=== PATIENT | male | born 1975 | race Caucasian/White ===

== ENCOUNTER → 2017-10-03 | Outpatient (CLI) | payer OTHER ==
[~2017-10-03] MED LIST: ERGO500011 PO; MELO-84 PO
[2017-10-03 17:50] LABS: ALBUMIN 3.6 gm/dl (3.4-5.0); ALT/SGPT 26 U/L (12-78); BLOOD UREA NITROGEN 20 mg/dl (7-18); CALCIUM 8.7 mg/dl (8.5-10.1); CARBON DIOXIDE 29 mmol/L (21-32); CHOLESTEROL 139 mg/dl (0-200); CREATININE 1.05 mg/dl (0.60-1.40); GLUCOSE 96 mg/dl (70-99); POTASSIUM 3.9 mmol/L (3.5-5.1); SODIUM 139 mmol/L (136-145)
[2017-10-03 17:55] LABS: ALKALINE PHOSPHATASE 68 U/L (45-117); AST/SGOT 10 U/L (15-37); LDL CHOLESTEROL CALCULATED 71 mg/dl; TOTAL PROTEIN 7.8 gm/dl (6.4-8.2)
== END | disposition home or self-care (01) ==
LOC: C.LABBFT 15:36
PROVIDERS: ATTEND Nurse Practitioner
DX: R35.0 Frequency of micturition (principal); Z12.5 Encounter for screening for malignant neoplasm of prostate; Z13.220 Encounter for screening for lipoid disorders

== ENCOUNTER 2023-01-01 13:10 | Inpatient (IN) ==
[2023-01-01] MEDS ORDERED: METOPROLOL TARTRATE 1 MG/ML VIAL IV PRN ×2 (13:25→19:04)
--- NOTE | 2023-01-01 13:29 | Emergency Department Note ---
Impression & Plan New onset atrial flutter, Atrial flutter with rapid ventricular response, Hypertension ED Provider Note INFORMANT: Patient ED PROVIDER(S): Chris Harris DO CHIEF COMPLAINT: Shortness of breath with exertion PLAN: Disposition: Admission Outpatient prescription management: [none] Discussion with: I spoke with the hospitalist, who will see the patient for admission/observation and further evaluation and consultation. MEDICAL DECISION MAKING: This is a 47-year-old male who presents to the ED with a chief complaint of shortness of breath with exertion. The patient states he has felt this way for the last several days. He states that he thought it was related to his asthma. The patient states that he became more short of breath with exertion with routine activities that he previously did not have shortness of breath with. He also reports a cough with some phlegm for the past few days. He was evaluated at a urgent care prior to coming in and was found to be in atrial flutter with a heart rate of 118. EMS took a twelve-lead where he was in atrial flutter with a heart rate of 146. The patient's exam reveals that he is obese. Lungs are clear. Heart was slightly irregular and rapid whenever I evaluated him. Denies any symptoms at this time. He states he cannot feel the rapid heart rate or palpitations. His twelve-lead EKG shows atrial fibrillation at a rate of 116. The patient CBC did not show any concerning anemia or leukocytosis. Chemistry panel showed no electrolyte abnormality or kidney dysfunction. Troponin was reviewed. The patient was told the results. I did speak with the hospitalist about the patient. We started the patient on IV heparin. He was given IV Lopressor while here for heart rate control. Triage Nursing notes reviewed. Vital Signs: reviewed Prior /Outside records reviewed: [none] Differential diagnosis: The differential that was considered includes acute myocardial infarction, acute coronary syndrome, myocarditis, pericarditis, pericardial effusions /tamponade, esophageal perforation, thoracic aortic dissection, pulmonary embolism, pneumonia, pneumothorax, pancreatitis, shingles, acute cholecystitis, perforated abdominal viscus. Diagnostics, as interpreted by me: 12 lead ECG: Atrial fibrillation rate of 116. No ST elevation. No PVCs. Normal QTc. Cardiac Monitoring ordered: Atrial flutter/atrial fibrillation with rates in the 110s to 140s. Medical decision rules: [none] Imaging studies: [none] Procedures: none. Critical care: none. HPI: See MDM above. PAST MEDICAL HISTORY: See Below PAST SURGICAL HISTORY: See Below SOCIAL HISTORY: See Below HOME MEDICATIONS:See Below ALLERGIES: See Below VITALS: See Below PHYSICAL EXAMINATION: See MDM for positive findings otherwise unremarkable. CONSTITUTIONAL/VITAL SIGNS: Reviewed GENERAL:done as appropriate INTEGUMENTARY: done as appropriate HEAD: done as appropriate EYES: done as appropriate RESPIRATORY: done as appropriate CARDIOVASCULAR:done as appropriate GI/ABDOMEN:done as appropriate EXTREMITIES: done as appropriate NEUROLOGICAL: done as appropriate PSYCHIATRIC:done as appropriate MUSCULOSKELETAL:done as appropriate TRIAGE NURSING DOCUMENTATION REVIEWED. Past Med/Surg History Medical History Arthritis Balanitis Bilateral sacroiliitis BPH with obstruction/lower urinary tract symptoms Hip pain, bilateral History of COVID-19 diagnosed 07/29/21 @ [place]--mild symptoms, no symptoms now HTN (hypertension) Moderate persistent asthma without complication inhaler daily and prn Morbid obesity with BMI of 60.0-69.9, adult Obesity Obstructive sleep apnea no cpap Surgical History History of circumcision (~2014) with meatal dilatation -Dr Harvey History of surgery (~09/2020) penile reconstruction @ [facility] History of tonsillectomy History of tooth extraction S/P panniculectomy done at same time penile reconstruction Family History Father Diabetes Kidney stone Myocardial infarction Hypertension Grandfather Cardiac disorder Myocardial infarction Hypertension Grandmother Cancer Family/Other Diabetes Uncle Cancer Sister Morbid obesity Other No family history of adverse response to anesthesia Denies family history of Ovarian cancer Prostate cancer Breast cancer Colorectal cancer Social History (Updated 12/27/21 @ 12:11 by Aman Summers MD) Smoking Status: Never smoker Second Hand Exposure: No; Do You Dip or Chew Tobacco: No; Hx Alcohol Use: No Hx Substance Use: No Preferred Language: Lao Communication Ability: Effective Hearing Ability: Normal Ekg Monitor Tech Required: No Beliefs That Will Affect Care: None marital status: Current Living Situation: Spouse and Family Current Living Situation Comment: lives with and stepkids come every other week current occupational status: employed 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 Feels Safe at Home: Yes Diet: regular caffeine: Yes Dental Care, Regularly: No Physical Activity Frequency: Does not Exercise Seatbelt Use: always Assistive Devices: CPAP Allergies Allergies Allergy/AdvReac Type Severity Reaction Status Date / Time amoxicillin Allergy Mild RASH Verified 12/05/22 10:52 Penicillins Allergy Mild RASH Verified 12/05/22 10:52 Home Meds Previous Rx's Medication Instructions Recorded fluticasone furoate 200 1 ea inhalation HS #28 ea 05/30/22 mcg-vilanterol 25 mcg/dose inhalation powder (Breo Ellipta) amlodipine 10 mg tablet 10 mg PO HS #90 tabs 05/31/22 irbesartan 300 mg tablet 300 mg PO HS #90 tabs 05/31/22 diclofenac sodium 75 mg 75 mg PO BID #60 tabs 11/16/22 tablet,delayed release cyclobenzaprine 10 mg tablet 10 mg PO HS PRN muscle spasm #8 12/05/22 tabs semaglutide (weight loss) 0.25 0.25 mg (0.5 mL) subcut Q7D 28 12/05/22 mg/0.5 mL subcutaneous pen days #2 mL injector (Quanlight) cholecalciferol (vitamin D3) 1,250 1,250 mcg PO DAILY #8 caps 12/06/22 mcg (50,000 unit) capsule albuterol sulfate 90 mcg/actuation See Rx Instructions .Route 12/29/22 aerosol inhaler .COMPLEX #8.5 grams Results & Data (ED) Vital Signs Vital Signs - 24 hr 01/01/23 13:24 01/01/23 13:25 01/01/23 13:25 Temperature 37.0 C Temperature Source Oral Pulse Rate 147 H 89 Pulse Rate from SpO2 Sensor Pulse Rhythm Irregular Pulse Strength Normal Respiratory Rate 16 Respiratory Effort / Characteristics Non-Labored Non-Labored Spontaneous Respiratory Depth Normal Respiratory Pattern Regular Blood Pressure 145/118 H Blood Pressure Mean 127 Blood Pressure Position Sitting Pulse Oximetry 97 Oxygen Delivery Method Room Air Sepsis Recent Fever Within 48 Hours No Sepsis New/Unexplained Change in Mental Status N/A Sepsis Action Taken by Nursing No Action Required 01/01/23 13:25 01/01/23 13:25 01/01/23 13:23 Temperature Temperature Source Pulse Rate Pulse Rate from SpO2 Sensor Pulse Rhythm Pulse Strength Respiratory Rate Respiratory Effort / Characteristics Respiratory Depth Respiratory Pattern Blood Pressure 145/118 H Blood Pressure Mean 135 Blood Pressure Position Pulse Oximetry Oxygen Delivery Method Room Air Room Air Sepsis Recent Fever Within 48 Hours Sepsis New/Unexplained Change in Mental Status Sepsis Action Taken by Nursing 01/01/23 13:24 01/01/23 13:30 01/01/23 13:32 Temperature Temperature Source Pulse Rate 118 H 120 H Pulse Rate from SpO2 Sensor 111 H 81 Pulse Rhythm Pulse Strength Respiratory Rate 21 18 Respiratory Effort / Characteristics Respiratory Depth Respiratory Pattern Blood Pressure 168/86 H Blood Pressure Mean 135 Blood Pressure Position Pulse Oximetry 96 96 Oxygen Delivery Method Sepsis Recent Fever Within 48 Hours Sepsis New/Unexplained Change in Mental Status Sepsis Action Taken by Nursing 01/01/23 13:32 01/01/23 14:00 01/01/23 14:01 Temperature Temperature Source Pulse Rate 109 H 98 H 109 H Pulse Rate from SpO2 Sensor 82 88 76 Pulse Rhythm Pulse Strength Respiratory Rate 14 23 28 H Respiratory Effort / Characteristics Respiratory Depth Respiratory Pattern Blood Pressure Blood Pressure Mean Blood Pressure Position Pulse Oximetry 94 96 96 Oxygen Delivery Method Sepsis Recent Fever Within 48 Hours Sepsis New/Unexplained Change in Mental Status Sepsis Action Taken by Nursing 01/01/23 14:01 01/01/23 14:30 01/01/23 14:47 Temperature Temperature Source Pulse Rate 103 H 84 Pulse Rate from SpO2 Sensor 96 H Pulse Rhythm Pulse Strength Respiratory Rate 20 Respiratory Effort / Characteristics Respiratory Depth Respiratory Pattern Blood Pressure 185/159 H 185/159 H Blood Pressure Mean 171 Blood Pressure Position Pulse Oximetry 98 Oxygen Delivery Method Sepsis Recent Fever Within 48 Hours Sepsis New/Unexplained Change in Mental Status Sepsis Action Taken by Nursing Laboratory Data 01/01/23 14:38 01/01/23 14:38 Lab Results 01/01/23 01/01/23 Range/Units 13:57 14:38 WBC 9.08 (4.8-10.8) K/ul RBC 4.92 (4.70-6.10) M/uL Hgb 13.1 L (14.0-18.0) g/dl Hct 41.4 L (42.0-52.0) % MCV 84.1 (80.0-100.0) fL MCH 26.6 (25.0-34.0) pg MCHC 31.6 L (32.0-36.0) g/dL RDW Std Deviation 46.8 H (36.4-46.3) fL RDW Coeff of Samantha 15.6 H (11.5-14.5) % Plt Count 245 (130-400) K/uL MPV 10.0 (9.4-12.4) fL Immature Gran % (Auto) 0.7 % Neut % (Auto) 75.6 % Lymph % (Auto) 14.2 % [place] % (Auto) 8.4 % Eos % (Auto) 0.7 % Baso % (Auto) 0.4 % Neut # (Auto) 6.87 H (1.40-6.50) K/uL Lymph # (Auto) 1.29 (1.2-3.4) K/uL [place] # (Auto) 0.76 H (0.11-0.59) K/uL Eos # (Auto) 0.06 (0-0.50) K/uL Baso # (Auto) 0.04 (0-0.2) K/uL Immature Gran # (Auto) 0.06 (0.01-0.20) K/uL SARS-CoV-2, RNA, NAAT NEGATIVE (NEGATIVE) Administered Medications Metoprolol Tartrate (Metoprolol Tartrate 1 Mg/Ml Vial) 5 mg IV Q5M PRN PRN Reason: Tachycardia Stop: 01/31/23 13:24 Last Admin: 01/01/23 14:47 Dose: 5 mg Documented By: AP Imaging Data Radiologist's Impression: Chest X-Ray 01/01/23 13:15 XR chest 1V portable CLINICAL HISTORY: Chest pain, nonspecific TECHNIQUE: Single frontal radiograph of the chest was obtained. Comparison: Comparison is made to chest radiograph 10/19/2020 FINDINGS: Exam is limited by underpenetration. Cardiomegaly is noted. The lungs are clear. No evidence of pleural effusion or pneumothorax. IMPRESSION: No acute chest disease. ACT 112: Negative or not required by law. Electronically signed by: Aj Oropeza M.D. 01/01/2023 2:27 PM Discharge Plan Visit Data Chief Complaint: Shortness of Breath/Dyspnea Stated Complaint: SOB, CARDIAC ASSESSMENT ED Provider: Chris Harris Discharge Problem: New onset atrial flutter, Atrial flutter with rapid ventricular response, Hypertension Forms Stand Alone Forms: [employer] Prescriptions Prescriptions: No Action Breo Ellipta 200-25 mcg/dose blister with device 1 ea INHALATION HS Qty: 28 5RF Rx Instructions: with a rinse of mouth afterwards. irbesartan 300 mg tablet 300 mg PO HS Qty: 90 3RF amlodipine 10 mg tablet 10 mg PO HS Qty: 90 3RF diclofenac sodium 75 mg tablet,delayed release (DR/EC) 75 mg PO BID Qty: 60 5RF cholecalciferol (vitamin D3) 1,250 mcg (50,000 unit) capsule 1,250 mcg PO DAILY Qty: 8 0RF albuterol sulfate 90 mcg/actuation HFA aerosol inhaler See Rx Instructions .ROUTE .COMPLEX Qty: 8.5 11RF Dose Instruction: inhale 2 puffs by mouth and INTO THE LUNGS every 6 hours if needed for wheezing OR SHORTNESS OF BREATH Rx Instructions: inhale 2 puffs by mouth and INTO THE LUNGS every 6 hours if needed for wheezing OR SHORTNESS OF BREATH cyclobenzaprine 10 mg tablet 10 mg PO HS PRN (Reason: muscle spasm) Qty: 8 1RF Wegovy 0.25 mg/0.5 mL pen injector 0.25 mg subcut Q7D 28 Days Qty: 2 0RF Rx Instructions: 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 Referrals Referrals: Aman Summers MD [Primary Care Provider] -
--- NOTE | 2023-01-01 14:29 | XRay Report ---
XR chest 1V portable CLINICAL HISTORY: Chest pain, nonspecific TECHNIQUE: Single frontal radiograph of the chest was obtained. Comparison: Comparison is made to chest radiograph 10/19/2020 FINDINGS: Exam is limited by underpenetration. Cardiomegaly is noted. The lungs are clear. No evidence of pleur al effusion or pneumothorax. IMPRESSION: No acute chest disease. ACT 112: Negative or not required by law. Electronically signed by: Aj Oropeza M.D. 01/01/2023 2:27 PM
[2023-01-01 14:51] LABS: Basophils # (auto) 0.04 K/uL (0-0.2); Basophils % (auto) 0.4 %; Eosinophils # (auto) 0.06 K/uL (0-0.50); Eosinophils % (auto) 0.7 %; Hematocrit (blood only) 41.4 % (42.0-52.0); Hemoglobin 13.1 g/dl (14.0-18.0); Immature Granulocytes # (auto) 0.06 K/uL (0.01-0.20); Immature Granulocytes % (auto) 0.7 %; Lymphocytes # (auto) 1.29 K/uL (1.2-3.4); Lymphocytes % (auto) 14.2 %; Mean Corpuscular Hemoglobin 26.6 pg (25.0-34.0); Mean Corpuscular Hgb Conc 31.6 g/dL (32.0-36.0); Mean Corpuscular Volume 84.1 fL (80.0-100.0); Monocytes # (auto) 0.76 K/uL (0.11-0.59); Monocytes % (auto) 8.4 %; Neutrophils # (auto) 6.87 K/uL (1.40-6.50); Neutrophils % (auto) 75.6 %; Platelet Count 245 K/uL (130-400); RDW Coefficient of Variation 15.6 % (11.5-14.5); RDW Standard Deviation 46.8 fL (36.4-46.3); Red Blood Count 4.92 M/uL (4.70-6.10); White Blood Count 9.08 K/ul (4.8-10.8)
[2023-01-01] MEDS ORDERED: Heparin IV Adult Wt-Based Standard WITH Bolus Protocol IV STA (14:53)
[2023-01-01 15:06] LABS: Albumin Globulin Ratio 1.2 (0.9-2); Albumin Level 3.8 gm/dl (3.4-5.0); BUN Creatinine Ratio 24.4 (10-20); Bilirubin,Total 0.5 mg/dl (0.2-1.0); Calcium 8.9 mg/dl (8.6-10.3); Creatinine Clr Calc Pharmacy 144.7 ml/min; Est GFR (African American) 83.2 ml/min; Est GFR (Non-African American) 71.8 ml/min; Globulin 3.1 gm/dl (2.5-4.0); Potassium 4.2 mmol/L (3.5-5.1); Total Protein 6.9 gm/dl (6.0-8.3)
[2023-01-01] MEDS ORDERED: HEPARIN SOD (PORCINE) 1000 UNIT/ML IV ONE ×2 (15:10→15:15)
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
[2023-01-01 15:12] LABS: Troponin I High Sensitivity 36.1 pg/ml (0-20)
[2023-01-01 15:50] LABS: Prothrombin Time 10.8 Seconds (9.0-12.0)
[2023-01-01] MEDS: HEPARIN SODIUM/DEXTROSE 25,000 UNITS/500 ML BAG IV SCH (15:52)
[2023-01-01 16:10] LABS: Partial Thromboplastin Ratio 0.9; Partial Thromboplastin Time 26.2 Seconds (21.0-31.0)
[2023-01-01] MEDS: LOSARTAN POTASSIUM 50 MG TAB PO SCH (18:04)
[2023-01-01] MEDS: PANTOprazole 40 MG TAB PO SCH (18:04)
[2023-01-01] MEDS: amLODIPine BESYLATE 5 MG TAB PO SCH (18:04)
[2023-01-01] MEDS ORDERED: CYCLOBENZAPRINE HCL 10 MG TAB PO PRN (19:04)
[2023-01-01] MEDS ORDERED: POLYETHYLENE (MIRALAX) 17 GM PACK PO PRN (19:04)
[2023-01-01] MEDS ORDERED: hydrALAZINE HCL 20 MG/ML VIAL IV PRN (19:04)
[2023-01-01] MEDS ORDERED: ACETAMINOPHEN 325 MG TAB PO PRN (19:04)
[2023-01-01] MEDS: ALBUTEROL HFA 8 GM INHALER INH SCH (20:37)
[2023-01-01] MEDS ORDERED: MoRPHine SULFATE 2 MG/ML CARP IV STA (20:40)
[2023-01-01] MEDS ORDERED: traMADol HCL 50 MG TABLET PO PRN (21:50)
[2023-01-01] MEDS: FLUTICASONE/VILANTEROL 200/25MCG 14 PUFFS/INHALER INH SCH (22:00)
[2023-01-01] MEDS: METOPROLOL TARTRATE 25 MG TAB PO SCH (22:00)
[2023-01-01 22:12] LABS: Partial Thromboplastin Ratio 1.8
[2023-01-01 22:17] LABS: Partial Thromboplastin Time 50.4 Seconds (21.0-31.0)
[2023-01-02] MEDS ORDERED: DICLOFENAC SOD 1% GEL 100 GM TUBE EXT PRN (00:42)
[2023-01-02] MEDS: ALBUTEROL HFA 8 GM INHALER INH SCH ×4 (00:54→19:06)
[2023-01-02] MEDS: HEPARIN SODIUM/DEXTROSE 25,000 UNITS/500 ML BAG IV SCH ×3 (01:48→21:50)
[2023-01-02] MEDS ORDERED: MoRPHine SULFATE 2 MG/ML CARP IV STA (05:30)
[2023-01-02 07:19] LABS: Basophils # (auto) 0.05 K/uL (0-0.2); Basophils % (auto) 0.6 %; Eosinophils # (auto) 0.14 K/uL (0-0.50); Eosinophils % (auto) 1.7 %; Hematocrit (blood only) 38.7 % (42.0-52.0); Hemoglobin 12.5 g/dl (14.0-18.0); Immature Granulocytes # (auto) 0.05 K/uL (0.01-0.20); Immature Granulocytes % (auto) 0.6 %; Lymphocytes # (auto) 1.36 K/uL (1.2-3.4); Lymphocytes % (auto) 16.3 %; Mean Corpuscular Hemoglobin 26.7 pg (25.0-34.0); Mean Corpuscular Hgb Conc 32.3 g/dL (32.0-36.0); Mean Corpuscular Volume 82.5 fL (80.0-100.0); Mean Platelet Volume 10.2 fL (9.4-12.4); Monocytes # (auto) 0.74 K/uL (0.11-0.59); Monocytes % (auto) 8.9 %; Neutrophils # (auto) 6.01 K/uL (1.40-6.50); Neutrophils % (auto) 71.9 %; Platelet Count 223 K/uL (130-400); RDW Coefficient of Variation 15.5 % (11.5-14.5); RDW Standard Deviation 46.5 fL (36.4-46.3); Red Blood Count 4.69 M/uL (4.70-6.10); White Blood Count 8.35 K/ul (4.8-10.8)
[2023-01-02 07:48] LABS: BUN Creatinine Ratio 18.1 (10-20); Calcium 8.4 mg/dl (8.6-10.3); Creatinine Clr Calc Pharmacy 161.7 ml/min; Est GFR (African American) 96.8 ml/min; Est GFR (Non-African American) 83.5 ml/min; Potassium 3.9 mmol/L (3.5-5.1)
[2023-01-02 08:00] LABS: Partial Thromboplastin Ratio 1.6
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
[2023-01-02] MEDS ORDERED: ERGOCALCIFEROL 50,000 UNITS 1250 MCG CAP PO SCH (09:00)
[2023-01-02 09:03] LABS: Troponin I High Sensitivity 27.2 pg/ml (0-20)
[2023-01-02] MEDS: METOPROLOL TARTRATE 25 MG TAB PO SCH ×2 (09:14→20:00)
[2023-01-02] MEDS: amLODIPine BESYLATE 5 MG TAB PO SCH (09:14)
[2023-01-02] MEDS: PANTOprazole 40 MG TAB PO SCH ×2 (09:14→20:00)
[2023-01-02] MEDS: LOSARTAN POTASSIUM 50 MG TAB PO SCH (09:14)
[2023-01-02] MEDS ORDERED: MoRPHine SULFATE 2 MG/ML CARP IV PRN (11:17)
[2023-01-02] MEDS ORDERED: MoRPHine SULFATE 4 MG/ML 1 ML CARP\\VIAL IV PRN (11:17)
[2023-01-02] MEDS: traMADol HCL 50 MG TABLET PO PRN ×2 (11:35→19:49)
--- NOTE | 2023-01-02 14:15 | Anesthesiology Consultation ---
Date of Service January 02, 2023 Assessment & Plan Chart Review Chart Review: Acceptable Risk for Surgery History Surgery Operation Date: 01/02/23 16:00 Proposed Procedures p Echo Transesophageal - Aman Quintana MD s Cardioversion - Aman Quintana MD Height/Weight Height: 6 ft 1 in Weight: 212.3 kg Allergies Allergy/AdvReac Type Severity Reaction Status Date / Time amoxicillin Allergy Mild RASH Verified 12/05/22 10:52 Penicillins Allergy Mild RASH Verified 12/05/22 10:52 Medications Home Medications Medication Instructions Recorded Confirmed Last Taken fluticasone furoate 200 1 ea inhalation HS #28 ea 05/30/22 01/01/23 01/01/23 mcg-vilanterol 25 mcg/dose inhalation powder (Breo Ellipta) amlodipine 10 mg tablet 10 mg PO HS #90 tabs 05/31/22 01/01/23 12/31/22 irbesartan 300 mg tablet 300 mg PO HS #90 tabs 05/31/22 01/01/23 12/31/22 diclofenac sodium 75 mg 75 mg PO BID #60 tabs 11/16/22 01/01/23 01/01/23 tablet,delayed release cyclobenzaprine 10 mg tablet 10 mg PO HS PRN muscle spasm #8 12/05/22 01/01/23 Unknown tabs semaglutide (weight loss) 0.25 0.25 mg (0.5 mL) subcut Q7D 28 12/05/22 01/01/23 Unknown mg/0.5 mL subcutaneous pen days #2 mL injector (Fransisca) cholecalciferol (vitamin D3) 1,250 1,250 mcg PO DAILY #8 caps 12/06/22 01/01/23 12/31/22 mcg (50,000 unit) capsule albuterol sulfate 90 mcg/actuation See Rx Instructions .Route 12/29/22 01/01/23 01/01/23 aerosol inhaler .COMPLEX #8.5 grams Active Medications Generic Name Dose Route Start Last Admin Trade Name Freq PRN Reason Stop Dose Admin Albuterol 2 puffs 01/01/23 19:04 01/02/23 14:02 Albuterol Hfa 8 Gm Inhaler INH 01/31/23 19:03 2 puffs Q6H AMAURI Administration Amlodipine Besylate 10 mg 01/01/23 15:15 01/02/23 09:14 Amlodipine Besylate 5 Mg Tab PO 01/31/23 15:14 10 mg QAM AMAURI Administration Diclofenac Sodium 4 gm 01/02/23 00:42 01/02/23 01:10 Diclofenac Sod 1% Gel 100 Gm Tube EXT 02/01/23 00:44 4 gm Q4H PRN Administration Pain Protocol Ergocalciferol 50,000 units 01/02/23 09:00 01/02/23 08:03 Ergocalciferol 50,000 Units 1250 Mcg Cap PO 02/01/23 08:59 50,000 units DAILY AMAURI Administration Fluticasone/Vilanterol 1 puffs 01/01/23 21:00 01/01/23 22:00 Fluticasone/Vilanterol 200/25mcg 14 Puffs/Inhaler INH 01/31/23 20:59 1 puffs HS AMAURI Administration Heparin Sodium/Dextrose 25,000 units in 500 mls @ 49 mls/hr 01/01/23 15:15 01/02/23 11:37 Heparin Sodium/Dextrose IV 01/31/23 15:14 2,450 units/hr .[id number] AMAURI 49 mls/hr Administration Protocol 2,450 UNITS/HR Losartan Potassium 100 mg 01/01/23 16:15 01/02/23 09:14 Losartan Potassium 50 Mg Tab PO 01/31/23 16:14 100 mg QAM AMAURI Administration Metoprolol Tartrate 25 mg 01/01/23 21:00 01/02/23 09:14 Metoprolol Tartrate 25 Mg Tab PO 01/31/23 20:59 25 mg BID AMAURI Administration Pantoprazole Sodium 40 mg 01/01/23 15:10 01/02/23 09:14 Pantoprazole 40 Mg Tab PO 01/31/23 15:09 40 mg BID AMAURI Administration Tramadol HCl 100 mg 01/02/23 11:18 01/02/23 11:35 Tramadol Hcl 50 Mg Tablet PO 01/31/23 21:49 100 mg Q4H PRN Administration Pain Past Medical History Medical History (Updated 01/02/23 @ 14:14 by Dylan Grant MD) Arthritis Atrial flutter with rapid ventricular response Balanitis Bilateral sacroiliitis BPH with obstruction/lower urinary tract symptoms Hip pain, bilateral History of COVID-19 diagnosed 07/29/21 @ [place]--mild symptoms, no symptoms now HTN (hypertension) Moderate persistent asthma without complication inhaler daily and prn Morbid obesity with BMI of 60.0-69.9, adult Obesity Obstructive sleep apnea no cpap Past Family History Family History Father Diabetes Kidney stone Myocardial infarction Hypertension Grandfather Cardiac disorder Myocardial infarction Hypertension Grandmother Cancer Family/Other Diabetes Uncle Cancer Sister Morbid obesity Other No family history of adverse response to anesthesia Denies family history of Ovarian cancer Prostate cancer Breast cancer Colorectal cancer Past Surgical History Surgical History History of circumcision (~2014) with meatal dilatation -Dr Harvey History of surgery (~09/2020) penile reconstruction @ [facility] History of tonsillectomy History of tooth extraction S/P panniculectomy done at same time penile reconstruction Social History Smoking Status: Never smoker Do You Dip or Chew Tobacco: No Hx Alcohol Use: No Hx Substance Use: No substance use type: does not use Physical Exam Vital Signs Last Vital Signs Temp 36.8 C 01/02/23 11:14 Pulse 72 01/02/23 14:05 Resp 18 01/02/23 14:05 BP 144/92 H 01/02/23 11:14 Pulse Ox 93 01/02/23 14:05 O2 Del Method Room Air 01/02/23 14:05 O2 Flow Rate 2 01/02/23 03:31 Testing Laboratory Results 01/02/23 07:02 01/02/23 07:02 PT 10.8 Seconds (9.0-12.0) 01/01/23 14:39 INR 1.0 (0.9-1.1) 01/01/23 14:39 APTT 46.0 Seconds (21.0-31.0) H* 01/02/23 07:02 Electrocardiogram Date: 12/27/22 A Flutter variable block - ventricular rate 109
[2023-01-02] MEDS ORDERED: BENZOCAINE/TETRACAIN/BUTAM 50 APPLN/5 GM CAN EXT ONE (15:15)
--- NOTE | 2023-01-02 15:28 | Cardiology Consultation ---
Date of Consultation January 02, 2023 Assessment & Plan (1) Atrial flutter with rapid ventricular response: (2) Elevated troponin: Plan 1. Atrial flutter: Likely related to his obesity, intrinsic hypoxemia and sleep apnea. The duration of the arrhythmia is unknown. He began have symptoms a few days ago, but could have been in this arrhythmia much longer. I think the most expedient treatment would simply be of cardioversion. In order to make sure his risk of stroke is low as possible will perform a transesophageal echocardiogram 1st. More definitive therapy could be entertained with catheter ablation. His weight puts him at the upper limit of treatment options at our facility. I think he should continue systemic anticoagulation for 3-4 weeks. In this time frame we could possibly arrange for an ablation. 2. Elevated troponin: Very mild elevation. No real symptoms suggestive of coronary insufficiency or angina. No rise and fall typical of acute coronary syndrome. History of Present Illness Reason for Consultation: Atrial flutter Requesting Physician: Ivet Attending Physician: Ty Cooney MD History of Present Illness The patient is a 47-year-old gentleman without a known history of cardiac disease who presented to an outpatient facility for evaluation of worsening dyspnea. Recently we have been experiencing some poor air quality. The patient has noticed some dyspnea on exertion with doing activity over the past few days. Generally he could perform these activities without symptoms. No associated cough or fevers. No notable orthopnea or paroxysmal nocturnal dyspnea. No associated chest pain. No palpitations of which he was aware. He denies dizziness or lightheadedness. No history of syncope. He was discovered to have atrial flutter and sent to the emergency room for evaluation. Initially had s ome higher heart rates post given some metoprolol with improvement in the rates. He was started on heparin infusion. Currently feeling well. No symptoms associated with just ambulating around his room. He does have a history of obstructive sleep apnea but does not use CPAP. He also has a smart watch at home but has not been wearing it. He however, previously he denied any reports of higher heart rates or abnormal warnings from his smart watch. Allergies Allergy/AdvReac Type Severity Reaction Status Date / Time amoxicillin Allergy Mild RASH Verified 12/05/22 10:52 Penicillins Allergy Mild RASH Verified 12/05/22 10:52 Home Medications Medication Instructions Recorded Confirmed Type fluticasone furoate 200 1 ea inhalation HS #28 ea 11/07/22 06/11/23 Rx mcg-vilanterol 25 mcg/dose inhalation powder (Breo Ellipta) amlodipine 10 mg tablet 10 mg PO HS #90 tabs 05/31/22 01/01/23 Rx irbesartan 300 mg tablet 300 mg PO HS #90 tabs 05/31/22 01/01/23 Rx diclofenac sodium 75 mg 75 mg PO BID #60 tabs 11/16/22 01/01/23 Rx tablet,delayed release cyclobenzaprine 10 mg tablet 10 mg PO HS PRN muscle spasm #8 12/05/22 01/01/23 Rx tabs semaglutide (weight loss) 0.25 0.25 mg (0.5 mL) subcut Q7D 28 12/05/22 01/01/23 Rx mg/0.5 mL subcutaneous pen days #2 mL injector (Wegovy) cholecalciferol (vitamin D3) 1,250 1,250 mcg PO DAILY #8 caps 12/06/22 01/01/23 Rx mcg (50,000 unit) capsule albuterol sulfate 90 mcg/actuation See Rx Instructions .Route 12/29/22 01/01/23 Rx aerosol inhaler .COMPLEX #8.5 grams Patient History Medical History (Updated 01/02/23 @ 15:26 by Aman Quintana MD) Arthritis Atrial flutter with rapid ventricular response Balanitis Bilateral sacroiliitis BPH with obstruction/lower urinary tract symptoms Hip pain, bilateral History of COVID-19 diagnosed 07/29/21 @ [place]--mild symptoms, no symptoms now HTN (hypertension) Moderate persistent asthma without complication inhaler daily and prn Morbid obesity with BMI of 60.0-69.9, adult Obesity Obstructive sleep apnea no cpap Surgical History History of circumcision (~2014) with meatal dilatation -Dr Harvey History of surgery (~09/2020) penile reconstruction @ [facility] History of tonsillectomy History of tooth extraction S/P panniculectomy done at same time penile reconstruction Family History Father Diabetes Kidney stone Myocardial infarction Hypertension Grandfather Cardiac disorder Myocardial infarction Hypertension Grandmother Cancer Family/Other Diabetes Uncle Cancer Sister Morbid obesity Other No family history of adverse response to anesthesia Denies family history of Ovarian cancer Prostate cancer Breast cancer Colorectal cancer Social History (Updated 12/27/21 @ 12:11 by Aman Summers MD) Smoking Status: Never smoker Second Hand Exposure: No; Do You Dip or Chew Tobacco: No; Hx Alcohol Use: No Hx Substance Use: No Preferred Language: Hebrew Communication Ability: Effective Hearing Ability: Normal Senior Vice President & General Counsel Required: No Beliefs That Will Affect Care: None marital status: Current Living Situation: Spouse Current Living Situation Comment: lives with and stepkids come every other week current occupational status: employed 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 Mood and affect appeared normal. He answered all questions appropriately. Morbidly obese HEENT: Pupils are equal and reactive to light and accommodation. Extraocular movements are intact. The sclerae are anicteric. Neuro: Cranial nerves intact Lungs: Clear to auscultation bilaterally. He has good air movement without use of accessory muscles. No rales wheezes or rhonchi. Cardiac: Heart demonstrates an irregular rhythm but normal rate. Normal S1 and S2. No murmurs on examination. Pulses: The patient has palpable radial pulses bilaterally that are equal in intensity Extremities: There was no evidence of hypoperfusion. There is no cyanosis or clubbing. There is no edema. Skin: I did not appreciate any rashes on examination today. Results & Data Vital Signs (Past 12 Hours) Vital Signs Temp Pulse Resp BP Pulse Ox O2 Del Method O2 Flow Rate 01/02/23 14:05 72 18 93 Room Air 01/02/23 08:00 Room Air 01/02/23 11:14 36.8 C 75 19 144/92 H 97 Room Air 01/02/23 07:32 36.7 C 101 H 19 166/107 H 97 Room Air 01/02/23 07:05 74 18 99 Nasal Cannula 01/02/23 03:31 36.4 C L 75 19 154/72 H 98 Nasal Cannula 2 Laboratory Results Abnormal Lab Results 01/01/23 01/01/23 01/01/23 14:39 14:39 21:06 WBC RBC Hgb Hct MCV MCH MCHC RDW Std Deviation RDW Coeff of Samantha Plt Count MPV Immature Gran % (Auto) Neut % (Auto) Lymph % (Auto) Bailey % (Auto) Eos % (Auto) Baso % (Auto) Neut # (Auto) Lymph # (Auto) Bailey # (Auto) Eos # (Auto) Baso # (Auto) Immature Gran # (Auto) PT 10.8 INR 1.0 APTT 26.2 50.4 H* PTT Ratio 0.9 1.8 Sodium Potassium Chloride Carbon Dioxide Anion Gap BUN Creatinine Est Cr Clr Drug Dosing Est GFR ( Amer) Est GFR (Non-Af Amer) BUN/Creatinine Ratio Glucose Calcium Troponin I High Sens 01/02/23 01/02/23 01/02/23 07:02 07:02 07:02 WBC 8.35 RBC 4.69 L Hgb 12.5 L Hct 38.7 L MCV 82.5 MCH 26.7 MCHC 32.3 RDW Std Deviation 46.5 H RDW Coeff of Samantha 15.5 H Plt Count 223 MPV 10.2 Immature Gran % (Auto) 0.6 Neut % (Auto) 71.9 Lymph % (Auto) 16.3 Bailey % (Auto) 8.9 Eos % (Auto) 1.7 Baso % (Auto) 0.6 Neut # (Auto) 6.01 Lymph # (Auto) 1.36 Bailey # (Auto) 0.74 H Eos # (Auto) 0.14 Baso # (Auto) 0.05 Immature Gran # (Auto) 0.05 PT INR APTT 46.0 H* PTT Ratio 1.6 Sodium 137 Potassium 3.9 Chloride 107 Carbon Dioxide 25 Anion Gap 5 BUN 19 Creatinine 1.05 Est Cr Clr Drug Dosing 161.7 Est GFR ( Amer) 96.8 Est GFR (Non-Af Amer) 83.5 BUN/Creatinine Ratio 18.1 Glucose 97 Calcium 8.4 L Troponin I High Sens 27.2 H Diagnostic Findings Chest x-ray obtained the time admission not reveal any acute cardiopulmonary findings. PG Care Time/CCT Total # of Minutes Spent Total Time Spent with Patient: Total time spent is greater than 50% in coordination of care (as documented) at patient's floor/unit and/or counseling patient: Coding Level of Care Code 19306 IN/OBS CONSULT LVL 4,60M Diagnoses Atrial flutter with rapid ventricular response I48.92 Elevated troponin R77.8
--- NOTE | 2023-01-02 15:57 | Electrocardiogram Report ---
Test Reason : Blood Pressure : / mmHG Vent. Rate : 116 BPM Atrial Rate : 000 BPM P-R Int : 000 ms QRS Dur : 108 ms QT Int : 356 ms P-R-T Axes : 000 -37 078 degrees QTc Int : 494 ms Atrial flutter with 2 to 1 block with rapid ventricular response Left axis deviation Minimal voltage criteria for LVH, may be normal variant Abnormal ECG When compared with ECG of 19-OCT-2020 10:39, Atrial flutter with 2 to 1 block has replaced Sinus rhythm Vent. rate has increased BY [address] elevation now present in Inferior leads Nonspecific T wave abnormality now evident in Lateral leads Confirmed by Aman Quintana ([id number]) on 01/02/2023 3:57:23 PM Referred By: REFERRED SELF Confirmed By:Trevin Quintana
--- NOTE | 2023-01-02 18:02 | Electrocardiogram Report ---
Test Reason : Blood Pressure : / mmHG Vent. Rate : 109 BPM Atrial Rate : 300 BPM P-R Int : 000 ms QRS Dur : 126 ms QT Int : 354 ms P-R-T Axes : 257 -30 117 degrees QTc Int : 476 ms Atrial flutter with variable A-V block Left axis deviation Abnormal ECG When compared with ECG of 01-JAN-2023 13:20, (unconfirmed) Atrial flutter has replaced Atrial fibrillation ST no longer elevated in Inferior leads ST now depressed in Lateral leads Confirmed by Aman Quintana ([id number]) on 01/02/2023 6:02:08 PM Referred By: REFERRED SELF Confirmed By:Trevin Quintana
[2023-01-02] MEDS: FLUTICASONE/VILANTEROL 200/25MCG 14 PUFFS/INHALER INH SCH (20:00)
[2023-01-03] MEDS: ALBUTEROL HFA 8 GM INHALER INH SCH ×3 (01:27→13:03)
[2023-01-03] MEDS: traMADol HCL 50 MG TABLET PO PRN (05:57)
[2023-01-03] MEDS ORDERED: ONDANSETRON INJ 2 MG/ML 2 ML VIAL IV PRN (07:03)
[2023-01-03] MEDS ORDERED: ONDANSETRON INJ 2 MG/ML 2 ML VIAL IV STA (07:03)
[2023-01-03 07:11] LABS: Basophils # (auto) 0.03 K/uL (0-0.2); Basophils % (auto) 0.3 %; Eosinophils # (auto) 0.13 K/uL (0-0.50); Eosinophils % (auto) 1.3 %; Hemoglobin 13.1 g/dl (14.0-18.0); Immature Granulocytes # (auto) 0.04 K/uL (0.01-0.20); Immature Granulocytes % (auto) 0.4 %; Lymphocytes % (auto) 11.7 %; Mean Corpuscular Hemoglobin 26.3 pg (25.0-34.0); Mean Corpuscular Volume 82.3 fL (80.0-100.0); Mean Platelet Volume 11.3 fL (9.4-12.4); Monocytes # (auto) 0.91 K/uL (0.11-0.59); Monocytes % (auto) 8.9 %; Neutrophils # (auto) 7.97 K/uL (1.40-6.50); Neutrophils % (auto) 77.4 %; Platelet Count 201 K/uL (130-400); RDW Coefficient of Variation 15.4 % (11.5-14.5); RDW Standard Deviation 46.2 fL (36.4-46.3); Red Blood Count 4.98 M/uL (4.70-6.10); White Blood Count 10.28 K/ul (4.8-10.8)
[2023-01-03 07:26] LABS: BUN Creatinine Ratio 15.7 (10-20); Calcium 8.7 mg/dl (8.6-10.3); Creatinine Clr Calc Pharmacy 147.3 ml/min; Est GFR (African American) 86.7 ml/min; Est GFR (Non-African American) 74.8 ml/min; Potassium 4.2 mmol/L (3.5-5.1)
[2023-01-03 07:51] LABS: Partial Thromboplastin Ratio 1.6
[2023-01-03 07:59] LABS: Partial Thromboplastin Time 43.8 Seconds (21.0-31.0)
[2023-01-03] MEDS: amLODIPine BESYLATE 5 MG TAB PO SCH (08:37)
[2023-01-03] MEDS: METOPROLOL TARTRATE 25 MG TAB PO SCH (08:38)
[2023-01-03] MEDS: LOSARTAN POTASSIUM 50 MG TAB PO SCH (08:38)
[2023-01-03] MEDS: PANTOprazole 40 MG TAB PO SCH (08:39)
[2023-01-03] MEDS: HEPARIN SODIUM/DEXTROSE 25,000 UNITS/500 ML BAG IV SCH (09:00)
[2023-01-03] MEDS ORDERED: KETAMINE 50 MG/5 ML SYRINGE ONE (09:52)
[2023-01-03] MEDS ORDERED: BENZOCAINE/TETRACAIN/BUTAM 50 APPLN/5 GM CAN EXT ONE (10:01)
[2023-01-03] MEDS ORDERED: ePHEDrine sulfate 50 MG/ML AMP IV PRN (10:08)
[2023-01-03] MEDS ORDERED: ATROPINE SULFATE 0.1 MG/ML 10ML SYR IV PRN (10:08)
[2023-01-03] MEDS ORDERED: PROPOFOL IV EMULSION 10 MG/ML 20 ML VIAL IV ONE (10:36)
[2023-01-03] MEDS ORDERED: LIDOCAINE 2% 2 ML VIAL/AMP(20MG/ML) INFIL ONE (10:36)
--- NOTE | 2023-01-03 10:49 | Anesthesiology Progress Note ---
Date of Service January 03, 2023 Anesthesia Post Procedure Vital Signs Vital Signs: Temp Pulse Pulse Resp BP BP Pulse Ox 01/03/23 10:45 71 18 138/87 97 01/03/23 08:00 01/03/23 10:30 71 18 138/87 97 01/03/23 09:45 108 H 18 158/86 H 97 01/03/23 09:46 75 01/03/23 07:40 36.7 C 99 H 19 165/82 H 94 01/03/23 07:15 63 18 94 01/03/23 03:47 36.6 C 98 H 18 135/90 98 01/03/23 01:28 74 17 99 01/02/23 21:58 75 01/02/23 19:45 01/02/23 23:40 36.7 C 73 20 122/83 95 01/02/23 19:45 36.3 C L 65 18 119/71 98 01/02/23 19:06 76 18 96 01/02/23 16:24 36.5 C 74 18 155/108 H 96 01/02/23 14:05 72 18 93 01/02/23 11:14 36.8 C 75 19 144/92 H 97 O2 Del Method O2 Flow Rate 01/03/23 10:45 Room Air 01/03/23 08:00 Room Air 01/03/23 10:30 Room Air 01/03/23 09:45 Room Air 01/03/23 09:46 01/03/23 07:40 Room Air 01/03/23 07:15 Room Air 01/03/23 03:47 Nasal Cannula 2 01/03/23 01:28 Nasal Cannula 2 01/02/23 21:58 01/02/23 19:45 Room Air 01/02/23 23:40 Nasal Cannula 2 01/02/23 19:45 Room Air 01/02/23 19:06 Room Air 01/02/23 16:24 Room Air 01/02/23 14:05 Room Air 01/02/23 11:14 Room Air Pain Intensity Bilateral Hip: Pain Intensity: 5 Transfer of Care Handoff Completed per policy Notes Mental Status: alert / awake / arousable and participated in evaluation Patient Amnestic to Procedure: Yes Nausea / Vomiting: adequately controlled Pain: adequately controlled Airway Patency, RR, SpO2: stable & adequate BP & HR: stable & adequate Hydration State: stable & adequate Anesthetic Complications: no major complications apparent and Pt Satisfied with anesthetic care
--- NOTE | 2023-01-03 10:54 | Cardioversion ---
Date of Service January 03, 2023 PG Electrical Cardioversion Rp Electrical Cardioversion Report Procedure performed: Cardioversion Indication: Atrial flutter Staff copier technician: Aman Quintana MD Procedure in detail: The patient was informed of the risks benefits and alternatives to the intended procedure. He understood such which proceed. He was taken to the cardiac catheterization suite holding area. A general anesthetic was administered by the Anesthesiology Service. Once appropriately anesthetized, the patient was cardioverted using 200 joules delivered in a biphasic fashion. This returned the patient to sinus rhythm. The patient tolerated procedure well, there were no immediate complications. Patient was neurologically intact subsequent to the procedure. Impression: Successful cardioversion from atrial flutter to normal sinus rhythm Coding Level of Care Code 11316 CARDIOVERSION, ELECTIVE Additional Codes Electrical Cardioversion Report ([id number])
--- NOTE | 2023-01-03 11:26 | XCELERA ---
[id number] [id number]
[2023-01-03] MEDS ORDERED: APIXABAN 5 MG TABLET PO ONE (12:06)
--- NOTE | 2023-01-03 12:13 | Electrocardiogram Report ---
Test Reason : Blood Pressure : / mmHG Vent. Rate : 075 BPM Atrial Rate : 075 BPM P-R Int : 176 ms QRS Dur : 110 ms QT Int : 400 ms P-R-T Axes : 061 -41 056 degrees QTc Int : 446 ms Normal sinus rhythm Left axis deviation Abnormal ECG When compared with ECG of 02-JAN-2023 09:02, Sinus rhythm has replaced Atrial flutter T wave amplitude has decreased in Anterior leads Nonspecific T wave abnormality has replaced inverted T waves in Lateral leads Confirmed by Aman Quintana ([id number]) on 01/03/2023 12:12:46 PM Referred By: REFERRED SELF Confirmed By:Trevin Quintana
--- NOTE | 2023-01-03 12:19 | Cardiology Progress Note ---
Date of Service January 03, 2023 Assessment & Plan (1) Atrial flutter with rapid ventricular response: (2) Elevated troponin: Plan 1. Atrial flutter: He underwent successful cardioversion today. He should continue outpatient anticoagulation for 3 weeks. Will see him in the outpatient setting in order to discuss more definitive treatment of atrial flutter. Lifestyle changes such as regular exercise, weight loss and compliance with CPAP would likely reduce his chance of recurrence. I do not think he needs to go home on metoprolol. 2. Elevated troponin: Very mild elevation. No real symptoms suggestive of coronary insufficiency or angina. No rise and fall typical of acute coronary syndrome. Admission and Anticipated Discharge Date Admission Date: January 01, 2023 Subjective Immediately prior to his ANTOLIN and cardioversion he had few complaints. He does not like sleeping in the hospital or staying in bed for too long. Anxious for discharge. Review of Systems Review of Systems: Per HPI Physical Exam Physical Exam: The patient is alert and oriented. Mood and affect appeared normal. He answered all questions appropriately. Morbidly obese HEENT: Pupils are equal and reactive to light and accommodation. Extraocular movements are intact. The sclerae are anicteric. Neuro: Cranial nerves intact Lungs: Clear to auscultation bilaterally. He has good air movement without use of accessory muscles. No rales wheezes or rhonchi. Cardiac: Heart demonstrates an irregular rhythm but normal rate. Normal S1 and S2. No murmurs on examination. Pulses: The patient has palpable radial pulses bilaterally that are equal in intensity Extremities: There was no evidence of hypoperfusion. There is no cyanosis or clubbing. There is no edema. Skin: I did not appreciate any rashes on examination today. Results & Data Vital Signs (Past 12 Hours) Vital Signs Temp Pulse Pulse Resp BP BP Pulse Ox 01/03/23 12:14 36.8 C 73 18 139/85 97 01/03/23 11:56 36.8 C 73 18 130/90 95 01/03/23 11:32 36.6 C 73 18 127/88 94 01/03/23 11:08 36.7 C 71 18 129/85 96 01/03/23 10:45 71 18 138/87 97 01/03/23 08:00 01/03/23 10:30 71 18 138/87 97 01/03/23 09:45 108 H 18 158/86 H 97 01/03/23 09:46 75 01/03/23 07:40 36.7 C 99 H 19 165/82 H 94 01/03/23 07:15 63 18 94 01/03/23 03:47 36.6 C 98 H 18 135/90 98 01/03/23 01:28 74 17 99 O2 Del Method O2 Flow Rate 01/03/23 12:14 Room Air 01/03/23 11:56 Room Air 01/03/23 11:32 Room Air 01/03/23 11:08 Room Air 01/03/23 10:45 Room Air 01/03/23 08:00 Room Air 01/03/23 10:30 Room Air 01/03/23 09:45 Room Air 01/03/23 09:46 01/03/23 07:40 Room Air 01/03/23 07:15 Room Air 01/03/23 03:47 Nasal Cannula 2 01/03/23 01:28 Nasal Cannula 2 Laboratory Results Abnormal Lab Results 01/03/23 01/03/23 01/03/23 06:41 06:41 06:41 WBC 10.28 RBC 4.98 Hgb 13.1 L Hct 41.0 L MCV 82.3 MCH 26.3 MCHC 32.0 RDW Std Deviation 46.2 RDW Coeff of Samantha 15.4 H Plt Count 201 MPV 11.3 Immature Gran % (Auto) 0.4 Neut % (Auto) 77.4 Lymph % (Auto) 11.7 Churchill % (Auto) 8.9 Eos % (Auto) 1.3 Baso % (Auto) 0.3 Neut # (Auto) 7.97 H Lymph # (Auto) 1.20 Churchill # (Auto) 0.91 H Eos # (Auto) 0.13 Baso # (Auto) 0.03 Immature Gran # (Auto) 0.04 APTT 43.8 H* PTT Ratio 1.6 Sodium 135 L Potassium 4.2 Chloride 104 Carbon Dioxide 25 Anion Gap 6 BUN 18 Creatinine 1.15 Est Cr Clr Drug Dosing 147.3 Est GFR ( Amer) 86.7 Est GFR (Non-Af Amer) 74.8 BUN/Creatinine Ratio 15.7 Glucose 95 Calcium 8.7 PG Care Time/CCT Total # of Minutes Spent Total Time Spent with Patient: Total time spent is greater than 50% in coordination of care (as documented) at patient's floor/unit and/or counseling patient: Coding Level of Care Code 84718 SUB INP/OBS CARE 235MIN Diagnoses Atrial flutter with rapid ventricular response I48.92 Elevated troponin R77.8
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
== END 2023-01-03 13:54 | disposition home or self-care (01) | DRG 309 ==
LOC: ED 13:10 → SUATTDRO 15:56 → 2S 15:56

== ENCOUNTER 2024-11-20 06:03 | Inpatient (IN) ==
[2024-11-20 06:32] LABS: Basophils # (auto) 0.05 K/uL (0.00-0.20); Basophils % (auto) 0.4 %; Eosinophils # (auto) 0.26 K/uL (0.00-0.50); Eosinophils % (auto) 2.3 %; Hematocrit (blood only) 45.7 % (42.0-52.0); Hemoglobin 14.6 g/dl (14.0-18.0); Immature Granulocytes # (auto) 0.08 K/uL (0.01-0.20); Immature Granulocytes % (auto) 0.7 %; Lymphocytes # (auto) 2.55 K/uL (1.20-3.40); Lymphocytes % (auto) 22.3 %; Mean Corpuscular Hemoglobin 26.3 pg (25.0-34.0); Mean Corpuscular Hgb Conc 31.9 g/dL (32.0-36.0); Mean Corpuscular Volume 82.3 fL (80.0-100.0); Mean Platelet Volume 9.8 fL (9.4-12.4); Monocytes # (auto) 1.08 K/uL (0.11-0.59); Monocytes % (auto) 9.4 %; Neutrophils # (auto) 7.41 K/uL (1.40-6.50); Neutrophils % (auto) 64.9 %; Platelet Count 278 K/uL (130-400); RDW Coefficient of Variation 14.4 % (11.5-14.5); RDW Standard Deviation 43.3 fL (36.4-46.3); Red Blood Count 5.55 M/uL (4.70-6.10); White Blood Count 11.43 K/ul (4.8-10.8)
--- OUTSIDE RECORDS SUMMARY | 2024-11-20 06:57 | External Medical Summary | Summary of Care ---
Author Name Unknown Organization [facility] Address [address] [place] [address] Phone [phone] Care Team Providers Care Appointment Scheduler Name Role Phone Aman Summers MD Primary Care Provi elliot Reason for Visit * Reason Comments eRx-Medication Refill Encounter Details Date Type Department Care Team (Late st Contact Info) Description 11/03/2024 Refill Nutrition & Weight Management, [facility] [address] [place] [id number] Arabella Dobbs PA-C [address] [place] [id number] Folic acid deficiency Allergies Active Allergy Reactions Criticality Noted Date Comments Amoxicillin Rash 11/23/2014 Penicillins Rash 11/23/2014 documented as of this encounter (statuses as of 11/04/2024) Medications amLODIPine Besylate 10 MG Oral Tablet (Norvasc) Take 1 Tablet by mouth every evening. Active Diclofenac Sodium 75 MG Oral Tablet Delayed Release (Voltaren) Take 1 Tablet by mouth in the morning and 1 Tablet before bedtime. 023 Active Albuterol Sulfate HFA 108 (90 Base) MCG/ACT Inhalation Aerosol Solution inhale 2 puffs by mouth and INTO THE LUNGS every 6 hours if neede... (REFER TO PRESCRIPTION NOTES). 023 Active Budesonide-Formot cristina Fumarate 160-4.5 MCG/ACT Inhalation Aerosol (Symbicort) Inhale 2 Puffs by mouth in the morning and 2 Puffs before bedtime. Active CPAP Active Aspirin 325 MG Oral Tablet Delayed Release Take 1 Tablet by mouth in the morning. Active Methylcobalamin 1 MG Oral Tablet Chewable daily. Active Ondansetron 4 MG Oral Tablet Disintegrating (Zofran) Take 1 Tablet by mouth every 8 hours as needed for Nausea or Vomiting. 023 Active Topiramate 25 MG Oral Tablet (topAMAX) Take 1 Tablet by mouth in the morning. 30 Tablet 5 Active Olmesartan Medoxomil 40 MG Oral Tablet (Benicar) Take 1 Tablet by mouth every evening. Active Zepbound 7.5 MG/0.5ML Subcutaneous Solution Auto-injector (Singulex) Inject 7.5 mg (1 pen) under the skin once a week. 2 mL 3 10/23/19 25 10:59 AM EDT 025 Active Polyethylene Glycol 3350 17 GM Oral Packet (Miralax) Take 1 Packet by mouth in the morning. 30 Packet 025 Active Folic Acid 1 MG Oral TabletIndications :Folic acid deficiency Take 1 Tablet by mouth in the morning. 30 Tablet 025 Active Folic Acid 1 MG Oral TabletIndications :Folic acid deficiency Take 1 Tablet by mouth in the morning. 30 Tablet 3 024 2024 Discontinued documented as of this encounter (statuses as of 11/04/2024) Active Problems No known active problems documented as of this encounter (statuses as of 11/04/2024) Immunizations Name Administration Dates Next Due TDAP (age 10 and older)(Boostrix) 02/05/2015 documented as of this encounter Social History Tobacco Use Types Packs/Day Years Used Date Smoking Tobacco: Never Smokeless Tobacco: Never Alcohol Use Standard Drinks/Week Comments No 0 (1 standard drink = 0.6 oz pur e alcohol) PHQ-2 Answer Date Recorded PHQ Adult Total Score 0 08/21/2024 Hunger Vital Sign Answer Date Recorded Within the past 12 months, y ou worried that your food would run out before you got the money to buy more. Never true 12/10/20 24 Within the past 12 months, t he food you bought just didn't last and you didn't have money to get more. Never true 07/02/2024 Childcare Answer Date Recorded Do you feel overwhelmed with taking care of a child, family member or friend? No 07/02/2024 Does your family need help f inding childcare? (Household - for ages 0-17 years) Not on file 07/02/2024 Clothing Answer Date Recorded Have you been unable to get clothing when it was really needed? No 07/02/2024 Is your family able to get c lothes or diapers when needed? (Household - for ages 0-17 years) Not on file 07/02/2024 Personal Safety Answer Date Recorded Do you feel unsafe or have concerns for your saf ety? No 07/02/2024 Do you have concerns for you r family's safety? (Household - for ages 0-17 years) Not on file 07/02/2024 Utilities Answer Date Recorded Do you have trouble paying y our heating, water, or electric bill? No 07/02/2024 Is your family able to pay t he heat, water, or electric bill? (Household - for ages 0-17 years) Not on file 07/02/2024 Does your family have access to good internet? (Household - for ages 0-17 years) Not on file 07/02/2024 Employment Status Answer Date Recorded Are you unemployed or without regular income? No 07/02/2024 Does the household have a re gular source of income? (Household - for ages 0-17 years) Not on file 07/02/2024 Social Connections Answer Date Recorded How often do you feel lonely or isolated from th ose around you? Never 07/02/2024 Financial Resource Strain Answer Date R ecorded Do you have any trouble payi ng for your medications, or do you think you might in the future? No 07/02/2024 Does your family have troubl e paying for medicine? (Household - for ages 0-17 years) Not on file 07/02/2024 Transportation Needs Answer Date Record ed Do you have trouble getting a ride to medical visits or work? (Adult - for ages 18 years and over) Not on file 07/02/2024 Does your family have a hard time getting a ride to doctors visits? (Household - for ages 0-17 years) Not on file 07/02/2024 Has lack of transportation k ept you from medical appointments, meetings, work, or from getting things needed for daily living? Check all that apply. No 07/02/2024 Do you (or your family) have trouble finding or paying for a ride (transportation)? (Household - for ages 0-17 years) Not on file 07/02/2024 Housing Stability Answer Date Recorded Do you currently live in a s helter or have no steady place to sleep at night? No 07/02/2024 Do you think you are at risk of becoming homeless? (Adult - for ages 18 years and over) Not on file 07/02/2024 Does your family worry about paying for your home or becoming homeless? (Household - for ages 0-17 years) Not on file 1 09/02/2023 Are you homeless or worried that you might be in the future? No 07/02/2024 Are you (or your family) delores eless or worried that you might be in the future? (Household - for ages 0-17 years) Not on file Food Insecurity Answer Date Recorded Do you need food for this week? No 07/02/2024 Are you able to get enough f ood for your family? (Household - for ages 0-17 years) Not on file 07/02/2024 Does your family need food t his week? (Household - for ages 0-17 years) Not on file 07/02/2024 Do you always have enough fo od for your family? (Household - for ages 0-17 years) Not on file 07/02/2024 Food Insecurity Answer Date Recorded Within the past 12 months, y ou worried that your food would run out before you got the money to buy more. Never true 07/02/20 24 Within the past 12 months, t he food you bought just didn't last and you didn't have money to get more. Never true 07/02/2024 Do you need food for this week? No 07/02/2024 Sex and Gender Information Value Date Recorded Sex Assigned at Male 04/24/2024 10:59 AM EDT Legal Sex Male 6:59 AM EST Gender Identity Male 04/24/2024 10:59 AM EDT Sexual Orientation Straight 04/24/2024 10 :59 AM EDT documented as of this encounter Miscellaneous Notes * Telephone Encounter - Arabella Dobbs PA-C - 11/04/2024 12:09 PM EDT Due for light status any provider, due now. Last seen in July * Telephone Encounter - Arabella Dobbs PA-C - 11/04/2024 12:09 PM EDT Signed Prescriptions: Disp Refills Folic Acid 1 MG Oral Tablet 30 Tab*0 Sig: Take 1 Tablet by mouth in the morning. Authorizing Provider: ARABELLA DOBBS * Telephone Encounter - Kaya Whitaker RN - 11/04/2024 10:21 AM EDTPending Prescriptions: Disp Refills Folic Acid 1 MG Oral Tablet 30 Tab*0 Sig: Take 1 Tablet by mouth in the morning. documented in this encounter Plan of Treatment Upcoming Encounters Date Type Department Care Team (Late st Contact Info) Description 01/20/2025 1:00 PM EDT Office Visit Orthopaedics [facility] [address] [place] [phone] Niranjan Casiano, DO [address] [place] [phone] Health Maintenance Due Date Last Done Comments HIV Screening 1989 Hepatitis C Screening 1992 Hepatitis B Vaccine (1 of 3 - 19+ 3-dose series) 1993 Cologuard 2019 Colonoscopy 2019 Colorectal Cancer Screening 2019 Fecal Occult Blood Test 2019 Sigmoidoscopy 2019 Pneumococcal Vaccine: 50+ Years (2 of 2 - PCV) 06/28/2022 06/28/2021 COVID-19 Vaccine (3 - 2023-2 5 season) 2024 12/27/2021, 01/21/2021 Zoster Vaccines (1 of 2) 2024 DTap/Tdap Vaccines (2 - Td o r Tdap) 02/05/2025 02/05/2015 Depression Screening 08/21/2025 08/21/2024, 07/02/2024 Diabetes Screening 06/24/2027 06/24/2024, 06/24/2024, 08/04/2020 Lipid Panel 06/24/2029 06/24/2024 Influenza Vaccine (FLU shot) Completed , 06/28/2021 HPV (Gardasil) Vaccine Aged Out No lo nger eligible based on patient's age to complete this topic MENINGOCOCCAL (MENACTRA/MENVEO) Aged Out No longer eligible b ased on patient's age to complete this topic Meningitis B Vaccine (Bexsero/Trumemba) Aged Out No longer eligible b ased on patient's age to complete this topic documented as of this encounter Medical Devices Not on filedocumented as of this encounter Visit Diagnoses Diagnosis Folic acid deficiency Other B-complex deficiencies documented in this encounter Care Teams Appointment Scheduler Relationship Specialty Start Date End Date Aman Summers MD [facility] [place] [id number] PCP - General Internal Medicine 12/06/21 documented as of this encounter
--- OUTSIDE RECORDS SUMMARY | 2024-11-20 06:57 | External Medical Summary | Summary of Care ---
Author Name Unknown Organization [facility] Address [address] [place] [address] Phone [phone] Care Team Providers Care Diet Attendant Name Role Phone Aman Summers MD Primary Care Provi elliot Reason for Visit * Reason Comments eRx-Medication Refill Encounter Details Date Type Department Care Team (Late st Contact Info) Description 11/03/2024 Refill Nutrition & Weight Management, [facility] [place] [address] [place] [id number] Arabella Dobbs PA-C [address] [place] [address] Folic acid deficiency Allergies Active Allergy Reactions [...] Active Zepbound 7.5 MG/0.5ML Subcutaneous Solution Auto-injector ([employer]) Inject 7.5 mg (1 pen) under the [...] 01/20/2025 1:00 PM EDT Office Visit Orthopaedics [facility] [place] [address] [place] [phone] Niranjan [...] deficiencies documented in this encounter Care Teams Diet Attendant Relationship Specialty Start Date End Date Aman Summers MD [facility] [place] [address] PCP - General Internal Medicine 12/06/21 documented as of this encounter
--- OUTSIDE RECORDS SUMMARY | 2024-11-20 06:58 | External Medical Summary | Summary of Care ---
Author Name Unknown Organization [facility] Address [address] [place] [address] Phone [phone] Care Team Providers Care Registered Art Therapist Name Role Phone Aman Summers MD Primary Care Provi elliot Reason for Visit * Reason Comments Follow Up Bilat hips Encounter Details Date Type Department Care Team (Latest Contact Info) Description 10/16/2024 9:30 AM EDT Office Visit Orthopaedics [facility] [address] [place] [phone] Niranjan Casiano, [address] [place] [phone] Primary osteoarthritis of both hips* Allergies Active Allergy Reactions Criticality Noted Date Comments Amoxicillin Rash 11/23/2014 Penicillins Rash 11/23/2014 documented as of this encounter (statuses as of 10/16/2024) Medications amLODIPine Besylate 10 MG Oral Tablet (Norvasc) Take 1 Tablet by mouth every evening. Active Diclofenac Sodium 75 MG Oral Tablet Delayed Release (Voltaren) Take 1 Tablet by mouth in the morning and 1 Tablet before bedtime. 10/01/19 23 Active Albuterol Sulfate HFA 108 (90 Base) MCG/ACT Inhalation Aerosol Solution inhale 2 puffs by mouth and INTO THE LUNGS every 6 hours if neede... (REFER TO PRESCRIPTION NOTES). 12/31/19 23 Active Budesonide-Formote rol Fumarate 160-4.5 MCG/ACT Inhalation Aerosol (Symbicort) Inhale 2 Puffs by mouth in the morning and 2 Puffs before bedtime. Active CPAP 03/26/20 24 Active Aspirin 325 MG Oral Tablet Delayed Release Take 1 Tablet by mouth in the morning. 03/07/20 23 Active Methylcobalamin 1 MG Oral Tablet Chewable daily. 02/06/20 24 Active Ondansetron 4 MG Oral Tablet Disintegrating (Zofran) Take 1 Tablet by mouth every 8 hours as needed for Nausea or Vomiting. 02/24/20 23 Active Topiramate 25 MG Oral Tablet (topAMAX) Take 1 Tablet by mouth in the morning. 30 Tablet 5 05/28/20 24 Active Folic Acid 1 MG Oral TabletIndications: Folic acid deficiency Take 1 Tablet by mouth in the morning. 30 Tablet 3 07/02/20 24 Active Olmesartan Medoxomil 40 MG Oral Tablet (Benicar) Take 1 Tablet by mouth every evening. 05/27/20 24 Active Zepbound 7.5 MG/0.5ML Subcutaneous Solution Auto-injector ([employer]) Inject 7.5 mg (1 pen) under the skin once a week. 2 mL 3 5 11:20 AM EST 09/11/19 25 Active Polyethylene Glycol 3350 17 GM Oral Packet (Miralax) Take 1 Packet by mouth in the morning. 30 Packet 10/11/19 25 Active Hospital, Clinic, or Other Facility Administered Medication Ordered Dose Route Frequency Start Date End Date Status lidocaine 1% 1 mL - triamcinolone acetonide 40 mg/mL 1 mL inj 2 mLIndications:Primary osteoarthritis of both hips 2 mL IJ ONCE 10/16/2024 10/17/19 25 Ended lidocaine 1% 1 mL - triamcinolone acetonide 40 mg/mL 1 mL inj 2 mLIndications:Primary osteoarthritis of both hips 2 mL IJ ONCE 10/16/2024 10/17/19 25 Ended documented as of this encounter (statuses as of 10/16/2024) Active Problems No known active problems documented as of this encounter (statuses as of 10/16/2024) Immunizations Name Administration Dates Next Due TDAP [...] AM EDT documented as of this encounter Progress Notes * Niranjan Casiano, DO - 10/16/2024 9:30 AM EDT Elliott Sanchez [id number] Elliott Sanchez is a 49 year old male who presents to [facility] for bilateral intra-articular hip injections Elliott Sanchez is here unacompanied Date of Injury: no injury, pain x years 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 TODAY: he would like repeat injections, last injected 07/18/24 Review of Systems: no fevers or chills, no unexplained weight loss, no rashes or all other pertinent systems negative. Past Medical History: Diagnosis Date DJD (degenerative joint disease) HTN (hypertension) LESVIA (obstructive sleep apnea) Current Outpatient Medications Medication Sig Dispense Refill amLODIPine Besylate 10 MG Oral Tablet (Norvasc) Take 1 Tablet by mouth every evening. Diclofenac Sodium 75 MG Oral Tablet Delayed Release (Voltaren) Take 1 Tablet by mouth in the morning and 1 Tablet before bedtime. Albuterol Sulfate HFA 108 (90 Base) MCG/ACT Inhalation Aerosol Solution inhale 2 puffs by mouth andINTO THE LUNGS every 6 hours if neede... (REFER TO PRESCRIPTION NOTES). Budesonide-Formoterol Fumarate 160-4.5 MCG/ACT Inhalation Aerosol (Symbicort) Inhale 2 Puffs by mouth in the morning and 2 Puffs before bedtime. CPAP (Patient not taking: Reported on 07/23/2024) Aspirin 325 MG Oral Tablet Delayed Release Take 1 Tablet by mouth in the morning. Methylcobalamin 1 MG Oral Tablet Chewable daily. Ondansetron 4 MG Oral Tablet Disintegrating (Zofran) Take 1 Tablet by mouth every 8 hours as neededfor Nausea or Vomiting. Topiramate 25 MG Oral Tablet (topAMAX) Take 1 Tablet by mouth in the morning. 30 Tablet 5 Folic Acid 1 MG Oral Tablet Take 1 Tablet by mouth in the morning. 30 Tablet 3 Olmesartan Medoxomil 40 MG Oral Tablet (Benicar) Take 1 Tablet by mouth every evening. Zepbound 7.5 MG/0.5ML Subcutaneous Solution Auto-injector ([employer]) Inject 7.5 mg (1 pen) under the skin once a week. 2 mL 3 Polyethylene Glycol 3350 17 GM Oral Packet (Miralax) Take 1 Packet by mouth in the morning. 30 Packet 0 No current facility-administered medications for this visit. Physical exam: Defer Assessment and Plan: will repeat injections, follow up 3 months, please see procedure note, continue weight loss as [facility] is probably his best long-term option Primary osteoarthritis of both hips (Primary) - POINT OF CARE US MAJOR JOINT INJECTION, ORTHO - lidocaine 1% 1 mL - triamcinolone acetonide 40 mg/mL 1 mL inj 2 mL - lidocaine 1% 1 mL - triamcinolone acetonide 40 mg/mL 1 mL inj 2 mL Niranjan Casiano, DO Primary Care Sports Medicine Orthopaedics [address] [address] This chart was completed in part utilizing [employer] Speech Voice Recognition Software. Grammatical errors, random word insertions, pronoun errors, and incomplete sentences are an occasional consequence of this system due to software limitations, ambient noise, and hardware issues. Any formal questions or concerns about the content, text, or information contained within the body of this dictation should be directly addressed to the provider for clarification. PROCEDURE NOTE: HIP JOINT INJECTION Laterality: Bilateral Time out: Prior to injection, a time out was called to confirm the administration of appropriate medicine, patient name, procedure and confirm to the best of our ability and knowledge the presence of any necessary risks and benefits. Patient verbalized understanding. Ultrasound utilized to guide injection. During the procedure, the needle was visualized in plane and was advanced with continuous ultrasound guidance to the appropriate anatomical landmark as described in the procedure. Ultrasound required due to high risk for complications without ultrasound guidance (risk for neurovascular damage) and patient size (obese) Sterile technique applied using gloves, chlorhexadine, and alcohol swabs. Ethyl chloride spray for local anesthetic. Hip joint at femoral capsule injected using 3.5 inch, 22 gauge needle. Injected with 1 mL Lidocaine1% - 1 mL Triamcinolone Acetonide 40 mg/mL >> inject 2 mL. Patient tolerated procedure with no significant bleeding or adverse reaction. Patient instructed to call or return to clinic for fever, warmth, unusual redness at injection sitefor potential infection. Patient also advised regarding post-procedural pain. Niranjan Casiano DO Sports Medicine Primary Care [facility] [address] [facility] [id number] documented in this encounter Nursing Notes * Ericka Acosta MED ASSIST - 10/16/2024 9:40 AM EDT Follow up Patient Follow up: Hip Side: Bilateral Date of last visit: Improvement since last office visit: percent. Prior Treatment: Injection Here for Test Results: No Goals for this appointment: injections documented in this encounter Plan of Treatment Upcoming Encounters Date Type Department Care Team (Late st Contact Info) Description 01/20/2025 1:00 PM EDT [facility] [place] [phone] Niranjan Casiano DO [address] [place] [phone] Health Maintenance Due Date Last Done Comments [...] Not on filedocumented as of this encounter Procedures Procedure Name Priority Date/Time Associated Diagnosis Comments POINT OF CARE US MAJOR JOINT INJECTION, ORTHO Routine 10/16/2024 8:11 AM EDT Primary osteoarthritis of both hips documented in this encounter Results * POINT OF CARE US MAJOR JOINT INJECTION, ORTHO (10/16/2024 8:11 AM EDT) Anatomical Region Laterality Modality Musculoskeletal Radiographic Jewels ging 10/16/2024 8:11 AM EDT Narrative 10/16/2024 11:09 AM EDT Patient Name: ELLIOTT SANCHEZ : 1975 (49y) Male Performing Provider: Niranjan Casiano (digitally signed Oct 16, 2024 11:09 EDT) Attending: Niranjan Casiano (digitally signed Oct 16, 2024 11:09 EDT) [Impression] : PROCEDURE NOTE: HIP JOINT INJECTION Laterality: Bilateral Time out: Prior to injection, a time out was called to confirm the administration of appropriate medicine, patient name, procedure and confirm to the best of our ability and knowledge the presence of any necessary risks and benefits. Patient verbalized understanding. Ultrasound utilized to guide injection. During the procedure, the needle was visualized in plane and was advanced with continuous ultrasound guidance to the appropriate anatomical landmark as described in the procedure. Ultrasound required due to high risk for complications without ultrasound guidance (risk for neurovascular damage) and patient size (obese) Sterile technique applied using gloves, chlorhexadine, and alcohol swabs. Ethyl chloride spray for local anesthetic. Hip joint at femoral capsule injected using 3.5 inch, 22 gauge needle. Injected with 1 mL Lidocaine 1% - 1 mL Triamcinolone Acetonide 40 mg/mL >> inject 2 mL. Patient tolerated procedure with no significant bleeding or adverse reaction. Patient instructed to call or return to clinic for fever, warmth, unusual redness at injection site for potential infection. Patient also advised regarding post-procedural pain. Niranjan Casiano DO Sports Medicine Primary Care Orthopaed[facility] [address] [address] Procedure Note Niranjan Casiano DO - 10/16/2024 Patient Name: ELLIOTT SANCHEZ : 1975 (49y) Male Performing Provider: Niranjan Casiano (digitally signed Oct 16, 2024 11:09EDT) Attending: Niranjan Casiano (digitally signed Oct 16, 2024 11:09 EDT) [Impression] : PROCEDURE NOTE: HIP JOINT INJECTION Laterality: Bilateral Time out: Prior to injection, a time out was called to confirm the administration ofappropriate medicine, patient name, procedure and confirm to the best ofour ability and knowledge the presence of any necessary risks andbenefits. Patient verbalized understanding. Ultrasound utilized to guide injection. During the procedure, the needle was visualized in plane and was advancedwith continuous ultrasound guidance to the appropriate anatomical landmarkas described in the procedure. Ultrasound required due to high risk for complications without ultrasoundguidance (risk for neurovascular damage) and patient size (obese) Sterile technique applied using gloves, chlorhexadine, and alcoholswabs. Ethyl chloride spray for local anesthetic. Hip joint at femoral capsule injected using 3.5 inch, 22 gauge needle.Injected with 1 mL Lidocaine 1% - 1 mL Triamcinolone Acetonide 40 mg/mL >>inject 2 mL. Patient tolerated procedure with no significant bleeding or adversereaction. Patient instructed to call or return to clinic for fever, warmth, unusualredness at injection site for potential infection. Patient also advisedregarding post- procedural pain. Niranjan Casiano DO Sports Medicine Primary Care Orth[facility] [address] [address] [place] Niranjan Casiano DO RAD ULTRASOUND Final Result documented in this encounter Visit Diagnoses Diagnosis Primary osteoarthritis of both hips- Primary Primary localized osteoarthrosis, pelvic region and thigh documented in this encounter Administered Medications Inactive Administered Medications - up to 3 most recent administrations Medication Order MAR Action Action Date Dose Rate Site lidocaine 1% 1 mL - triamcinolone acetonide 40 mg/mL 1 mL inj 2 mL 2 mL, Injection, ONCE, On Mon10/16/24 at 1015, For 1 dose, Lidocaine 1% 1mL Triamcinolone Acetonide 40 mg/mL 1 mL (Final concentration = 20 mg/mL) REFRIGERATE and SHAKE WELLIndications:Primary osteoarthritis of both hips Given 10/16/2024 10:14 AM EDT 2 mL Hip Right lidocaine 1% 1 mL - triamcinolone acetonide 40 mg/mL 1 mL inj 2 mL 2 mL, Injection, ONCE, On Mon10/16/24 at 1015, For 1 dose, Lidocaine 1% 1mL Triamcinolone Acetonide 40 mg/mL 1 mL (Final concentration = 20 mg/mL) REFRIGERATE and SHAKE WELLIndications:Primary osteoarthritis of both hips Given 10/16/2024 10:13 AM EDT 2 mL Hip Left documented in this encounter Care Teams Registered Art Therapist Relationship Specialty Start Date End Date Aman Summers MD [address] [place] [address] [place] [id number] PCP - General Internal Medicine 12/06/21 documented as of this encounter
--- OUTSIDE RECORDS SUMMARY | 2024-11-20 06:58 | External Medical Summary | Summary of Care ---
Author Name Unknown Organization [facility] Address [address] [place] [address] Phone [phone] Care Team Providers Care Belting Inspector Name Role Phone Aman Summers MD Primary Care Provi elliot Reason for Visit * Reason Comments Follow Up * - Authorized Specialty Diagnoses / Procedures Referred By Contac t Referred To Contact Referral ID Status Reason Start Date Expiration Date V isits Requested Visits Authorized [id number] Authorized 06/23/2024 06/22/2025 [id number] Encounter Details Date Type Department Care Team (Late st Contact Info) Description 09/02/2024 3:30 PM EST [facility] [address] [place] [address] Jeane Reyes PsyD [address] [place] [address] Morbid obesity due to excess calories (HCC)*; Psychological factors affecting medical condition Allergies Active Allergy Reactions Criticality Noted Date Comments Amoxicillin Rash 11/23/2014 Penicillins Rash 11/23/2014 documented as of this encounter (statuses as of 09/03/2024) Medications amLODIPine Besylate 10 MG Oral Tablet [...] Active Zepbound 7.5 MG/0.5ML Subcutaneous Solution Auto-injector ([employer] t [employer]) Inject 7.5 mg (1 pen) under the skin once a week. 2 mL 5 11:51 AM EST 08/07/19 25 Active Polyethylene Glycol 3350 17 GM Oral Packet (Miralax) Take 1 Packet by mouth in the morning. 30 Each 1 08/13/19 25 Active documented as of this encounter (statuses as of 09/03/2024) Active Problems No known active problems documented as of this encounter (statuses as of 09/03/2024) Immunizations Name Administration Dates Next Due TDAP [...] as of this encounter Progress Notes * Edyta ReyesLatesha dorado - 09/02/2024 3:38 PM EST Images from the original note were not included. Patient location: HOME. I was in a hospital or clinic location. After connecting through tele[employer]Appreciation Engineo,patient was verified with two unique identifiers. 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 Methods to assure confidentiality were taken. Patient acknowledged consent and understanding of pr ivacy and security of the Telemedicine visit. The patient agreed to participate. My office door was closed. No one else was in the room with me. I informed the patient that I have reviewed their record in [employer] and presented the opportunity for them to ask any questions regarding the visit today. The patient agreed to participate. Provider reviewed elements of Outpatient Services Description including limits of confidentiality, how to contact the department, risks and benefits of treatment and consent for treatment. Start Time: 3:35p Stop Time: 4:18p Total direct [id number] time: 43 min Confirm patient's location (and address if different from the home address documented in [facility]) at the time of this appointment: home BEHAVIORAL MEDICINE ASSESSMENT FOR BARIATRIC SURGERY: LIGHT STATUS FOLLOW-UP [place] [address] [facility] [address] 09/02/2024 3:39 PM TYPE OF VISIT: Individual DIAGNOSIS: Morbid obesity due to excess calories (HCC) Psychological factors affecting medical condition REASON FOR FOLLOW-UP: Elliott Muller ([id number]) is a 49 year old male who comes on referral from Nutrition and Weight Management for psychological evaluation and preparation for potential bariatric surgery. Elliott's primary care provider is Aman Summers MD. Elliott was previously evaluated on 07/02/2024 and concerns were expressed about bariatric surgery readiness. Time spent on this evaluation was 39 minutes SESSION FOCUS: Re-assessment of readiness for bariatric surgery. SESSION SUMMARY/NOTES: Appointment primarily spent reviewing progress toward bariatric surgery-related goals as well as problem solving barriers. YELLOW PSYCHOLOGICAL CONDITION- It is my professional opinion that surgery for Elliott should be postponed until successful completion of recommendations as noted below. Continue progress on weight loss goal. and Continue behavioral changes, especially: -Increasing exercise. Park further away, take steps instead of elevators, swimming is great for those with pain/difficulty walking, walking is cheap and easy, get an exercise partner (family, friend, or pet will do), listen to music while you exercise, try different types of exercise to find one you like (e.g., walking, riding bike, going to gym, swimming, exercise videos), get on a regular exercise schedule, dochair exercises for upper body if knees/legs/back are problems -Eating three meals, and two snacks per day. Set a regular schedule to the extent possible, use liquid meals as a substitute if you don't like heavy food in the morning, talk with boss/coworkers/family about the need for regular eating times, talk with the dieticians about planning snacks throughout the day -Sipping water. Use a sippy cup, freeze a partially filled bottle of water and sip as it melts, usea sports bottle with a pop-up lid, keep water available at all times, set timer to remind self to take sips if needed, don't wait until you're thirsty to drink PROGRESS TOWARDS GOALS: Continue progress on weight loss goal - reports down another 12 lbs since last appointment, identified prioritizing protein first as contributing as well as eliminating soda Stop caffeine., eliminated caffeine, drinking propel (16.9 oz propel) and milk Continue behavioral changes, especially: -Eating slowly, chewing food to applesauce consistency. Aware of the need and practicing about 75% of the time and has been practicing at this rate for about 2 months. Reports been trying to be conscious of this more, focusing on protein first, and not eating more on the road. - eating and drinking by 30 minutes. Aware of the need and practicing about 75% of the time and has been practicing at this rate for about 2 months. -Eating three meals, and two snacks per day. Reports won't eat if not hungry, states he has been getting 2 meals in a day, and occasional snack. Problem solved lunch and pt's desire to remain on the road and not stopping for lunch. Discussed meal replacement shakes and protein bars as potential solutions. Informed pt to discuss this at his next appointment with nutrition. It is suspected that thezepbound might be decreasing appetite. Breakfast 7 (truck)-9 (home) (depending up on the day) Lunch (not really happening, not eating if not hungry) if I don't have anything in the truck, won'tstop, beef stick, popcorn (had salad and beef tips for lunch) (beef sticks) Dinner 4:30-5p -Sipping water. Reports making conscious effort to sip, reports freezing in the truck and waiting for it to be thawed out prior to drinking Pt expressed questioning if wants to move forward with the surgery. Identified hesitancy with current process as is experiencing benefit in from zepbound. Discussed possibly delaying surgery until winter. Explored what the next few months would entail to help pt confirm one direction or the other. Notes reduction in pain due to weight loss, expressed desire to increase physical activity and see what he could do on his own without surgery, in conjunction with zepbound. RECOMMENDATION BASED ON PSYCHOLOGICAL EVALUATION FOLLOW-UP You have a Yellow light from Behavioral Medicine. Your surgery will be postponed until successful completion of the recommendations noted below. The decision noted above is based on the following: Elliott has made significant weight loss attempts in the past, but without lasting success. Elliott experienced no mental health problems in the past year. Elliott experienced no mental health problems earlier in life. Elliott is not engaging in problematic eating behaviors Elliott is knowledgeable about the surgery and related risks. Elliott is knowledgeable about the 4-step diet following surgery. Elliott's motivation for surgery is: Good Elliott's social support is: Good Elliott is aware of expected surgery weight loss with surgery. Elliott is aware of the habit changes that will need to occur and is actively engaged in changing those now. Elliott is making progress towards weight goal and there is a medical indication for weight gain. FOLLOW-UP PLAN: Appointment to be scheduled in 8 weeks. If you have any questions, you can contact Jeane Reyes PsyD at . Objective Measures: Myc Visit Accident Related Question Question 09/02/2024 3:18 PM EST - Filed by Patient Is this visit related to an accident? (i.e work, motor vehicle) No Labs/Outcomes 07/02/2024 08/21/2024 Labs/Outcomes PHQ Score 1 0 PHQ Score Description No Depression No Depression GAD7 Score 2 0 Details Patient-reported Lab Interpretations: Patient Health Questionnaire (PHQ-9) (0-4 Min; 5-9 Mild; 10-14 Moderate; 15+ Severe) Generalized Anxiety Disorder (NORTH-7) (0-4 Min; 5-9 Mild; 10-14 Moderate; 15+ Severe) Did not Administer (DNA) INTERVENTION: Motivational Interviewing PATIENT EDUCATION: Verbal & written MENTAL STATUS AND BEHAVIORAL OBSERVATIONS: Appearance: Well groomed, casually dressed, appearing stated age Abnormal Movement: No abnormal movements noted Behavior: Calm, cooperative and appropriate Speech and Language: Normal in rate, rhythm, volume and tone Mood: Euthymic Affect: Appropriate to context and mood-congruent Thought Process: Logical, linear and goal directed Thought Content: No abnormal thought content Hallucinations: No perceptual disturbances Suicidality: No suicidal ideations, intent, method or plan or passive wish Homicidality: No homicidal ideations, intent, plan or target Orientation: Oriented to self, time, place and circumstances Attention: Intact Recent and Remote memory:Intact Insight: Good Judgement: Good Fund of Knowledge: Good Suicide/Homicidal Assessment Validated Screening and Assessment Measures [place] Suicide Severity Rating Scale Results 07/02/2024 09:50 [place] SUICIDE SEVERITY RATING SCALE (C-SSRS) Have you wished you were or wished you could go to sleep and not wake up? (In the Past Month or Since Last Visit) No Have you had any actual thoughts of killing yourself? (In the Past Month or Since Last Visit) No Have you been thinking about how you might do this? (In the Past Month or Since Last Visit) No Have you had thoughts and had some intention of acting on them? (In the Past Month or Since Last Visit) No Have you started to work out or worked out the details of how to kill yourself? Do you intend to carry out this plan? (In the Past Month or Since Last Visit) No Have you ever done anything, started to do anything, or prepared to do anything to end your life? (Lifetime) No Was this within the past 3 months? No Level of Risk No Risk Identified Plan: Low risk crisis plan was developed on 07/02/24. As this is a one time evaluation a treatment plan will not be created. However, should patient engage in ongoing treatment, a plan will be created withthat provider at that time. Type of Service: Psychological Evaluation Crisis Planning: What I can do if I ever experience a crisis (much worse symptoms, severe distress or thoughts of self-harm): Talking to loved one or friend or trusted person, watch cows in seed cone picker truck People I can call in the event of a crisis: , mom or dad Additional resources I can utilize if the previous steps are ineffective (e.g: ED, hotlines): Suicide and Crisis Lifeline - 988, Clinic number: [phone], and [facility] for Help Patients Strengths and Facilitating Factors to care: Seeking help The assessment and plan for Elliott Muller are detailed at the beginning of this Treatment plan reviewed with the patient. Patient voices understanding and concurs with plan. The assessment and plan for Elliott Muller are detailed at the beginning of this report. Jeane Reyes PsyD Division of Psychiatry & Behavioral Medicine [facility] [phone] documented in this encounter Plan of Treatment Upcoming Encounters Date Type Department Care Team (Late st Contact Info) Description 09/09/2024 4:40 PM EST Telemedicine Nutrition and Weight Management [address] [place] [address] Tenisha Matamoros PA-C [address] [place] [address] 10/16/2024 9:30 AM EDT Office Visit Orthopaedics [facility] [address] [place] [phone] Niranjan Casiano, [address] [place] [phone] 11/04/2024 3:00 PM EDT Telemedicine Psychology[address] [place] [address] Jeane Reyes PsyD [address] [place] [address] [place] [address] Health Maintenance Due Date Last Done Comments [...] as of this encounter Visit Diagnoses Diagnosis Morbid obesity due to excess calories (HCC)- Primary Psychological factors affecting medical condition Psychic factors associated with diseases classified elsewhere documented in this encounter Care Teams Belting Inspector Relationship Specialty Start Date End Date Aman Summers MD [address] [facility] [place] [address] PCP - General Internal Medicine 12/06/21 documented as of this encounter
--- OUTSIDE RECORDS SUMMARY | 2024-11-20 06:58 | External Medical Summary | Summary of Care ---
Author Name Unknown Organization [facility] Address [address] [place] [address] Phone [phone] Care Team Providers Care Senior Production Planner Name Role Phone Aman Summers MD Primary Care Provi elliot Encounter Details Date Type Department Care Team (Late st Contact Info) Description 08/13/2024 12:40 PM EST Telemedicine Nutrition & Weight Management, [facility] [address] [place] [address] Arabella Dobbs PA-C [address] [place] [address] Morbid obesity due to excess calories (HCC)*; Folic acid deficiency; Zinc deficiency Allergies Active Allergy Reactions Criticality Noted Date Comments Amoxicillin Rash 11/23/2014 Penicillins Rash 11/23/2014 documented as of this encounter (statuses as of 08/13/2024) Medications amLODIPine Besylate 10 MG Oral Tablet [...] Active Zepbound 7.5 MG/0.5ML Subcutaneous Solution Auto-injector ([email or web address]) Inject 7.5 mg (1 pen) under the skin once a week. 2 mL 08/07/19 25 Active Polyethylene Glycol 3350 17 GM Oral Packet (Miralax) Take 1 Packet by mouth in the morning. 30 Each 1 08/13/19 25 Active Hospital, Clinic, or Other Facility Administered Medication Ordered Dose Route Frequency Start Date End Date Status DOBUTamine 250 mg in D5W 250 mL (peripheral) final conc 1000 mcg/mLIndications:Preo perative cardiovascular examination,Typical atrial flutter (HCC),Essential hypertension with goal blood pressure less than 140/90,SOB (shortness of breath) 1991 mcg/min PERIPH IV CONTINUOUS 08/13/2024 08/13/2024 Active documented as of this encounter (statuses as of 08/13/2024) Active Problems No known active problems documented as of this encounter (statuses as of 08/13/2024) Immunizations Name Administration Dates Next Due TDAP (age 10 and older)(Boostrix) 02/05/2015 documented as of this encounter Social History Tobacco Use Types Packs/Day Years Used Date Smoking Tobacco: Never Smokeless Tobacco: Never Alcohol Use Standard Drinks/Week Comments No 0 (1 standard drink = 0.6 oz pur e alcohol) PHQ-2 Answer Date Recorded PHQ Adult Total Score 1 07/02/2024 Hunger Vital Sign Answer Date Recorded Within [...] ages 0-17 years) Not on file 07/02/2024 Sex and Gender Information Value Date Recorded Sex Assigned at Male 04/24/2024 10:59 AM EDT Legal Sex Male 6:59 AM EST Gender Identity Male 04/24/2024 10:59 AM EDT Sexual Orientation Straight 04/24/2024 10 :59 AM EDT documented as of this encounter Progress Notes * Arabella Dobbs PA-C - 08/13/2024 12:44 PM EST [facility] Note Surgery Class Patient location: HOME. I was in a hospital or clinic location. After connecting through [employer],patient was verified with two unique identifiers. 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 Methods to assure confidentiality were taken. Patient acknowledged consent and understanding of pr ivacy and security of the Telemedicine visit. The patient agreed to participate. There are no exam notes on file for this visit. Elliott Muller presents in follow up to the comprehensive weight management clinic. The patient is a 49 year old male Wt Readings from Last 6 Encounters: 07/23/24 (!) 199.1 kg (438 lb 14.4 oz) 06/24/24 (!) 201.1 kg (443 lb 4.8 oz) 05/08/24 (!) 203.8 kg (449 lb 4.8 oz) 03/29/24 (!) 211.8 kg (466 lb 14.4 oz) 03/21/22 (!) 206.8 kg (456 lb) 12/22/21 (!) 218.2 kg (481 lb) Patient is receiving ongoing education regarding dietary and physical modifications for weight loss. Patient is interested in the following treatment options for obesity: medical management and surgical options including Mag-en-Y gastric bypass. - Initial clinic visit 03/29/24. Weight 466 lbs Height 70" Body mass index is 66.84 kg/m². -program goal weight: 419lbs - Today's weight: 438 lbs - Total weight loss of -28 lbs since initial weight in clinic - Patient's last follow up with GI/Nutrition clinic was on 06/24/24. - The patient's weight has -5 lbs since the last visit 08/13/24 -Surgery class -had dobutamine stress today - pending -on Zepbound 7.5mg - having constipation -BH - 08/21 -RD - Yellow - 08/28/24 -still hasn't received his CPAP 06/24/2024 BME On zepbound 5mg and doing well 05/28/24 -Behavior class -on Zepbound 5mg - some nausea, some diarrhea -still working on getting CPAP 05/08/24 -Nutrition class -zepbound 5mg weekly -- tolerating well -he is making some good dietary changes! 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 -self directed: exercise - PF, portions -commercial: -medication: Wegovy 0.5mg - off about 2 weeks d/t supply There is no problem list on file for this patient. Review of Systems: The patient denies any chest pain, shortness of breath, palpitations or ankle edema. Since the lastvisit there have been no problems with Abdominal pain / cramps and Diarrhea. Current Medications: Current Outpatient Medications Medication Sig Dispense Refill Polyethylene Glycol 3350 17 GM Oral Packet (Miralax) Take 1 Packet by mouth in the morning. 30 Each1 amLODIPine Besylate 10 MG Oral Tablet (Norvasc) [...] the skin once a week. 2 mL 0 Current Facility-Administered Medications Medication Dose Route Frequency Provider Last Rate Last Admin DOBUTamine 250 mg in D5W 250 mL (peripheral) final conc 1000 mcg/mL 10 mcg/kg/min Peripheral IV Continuous Ty Cortez DO Stopped at 08/13/24 1130 Weight loss Pharmacotherapy: yes Zepbound 7.5mg There were no vitals taken for this visit. PHYSICAL EXAMINATION: General: Patient awake alert and oriented. Patient is well appearing and in no acute distress. Skin: No rashes. HEENT: Head is atraumatic, normocephalic. EOMs intact Abdomen: Obese Neuro: No focal deficits Psych: Appropriate mood and affect. Assessment and Plan: Abnormal weight gain / There is no height or weight on file to calculate BMI. / Morbid obesity : - Would like to proceed with medical management and surgical options including Mag-en-Y gastric bypass - Barriers are consistency - Motivators are feeling better overall, avoiding/reducing co-morbid conditions - The patient was encouraged to to avoid all fruit juices and regular sodas, consume at least 64 ounces of water per day, keep food logs and get weighed on a weekly basis. They were encouraged to increase physical activity as prescribed. - Handouts regarding nutrition and physical activity were provided, as appropriate. Goals for next month: - Practice what you learned in the classes - Continue with current diet plan - Continue with your exercises and increase as much as possible Diagnoses and all orders for this visit: Morbid obesity due to excess calories (HCC) -enrolled in surgery program -plan RYGB with [facility] surgeon -continue Zepbound 7.5mg - can increase dose if constipation subsides Folic acid deficiency -folic acid supplement and MVI -recheck next visit Zinc deficiency -MVI -recheck next visit LESVIA (obstructive sleep apnea) -working on getting CPAP - sees Dr. Romero-- still working to get it - do not advise stopping CPAP on own--resolution of LESVIA typically requires significant wt loss; recommend following up with sleep med should CPAP become uncomfortable as settings & mask may need to be adjusted HTN, goal below 140/90 -continue current regimen Atrial flutter, unspecified type (HCC) -reports he had cardioversion -off anticoagulation -had stress test today - awaiting results Moderate persistent asthma without complication -stable The Possibility of bariatric surgery: The patient attended the third of our group sessions today regarding bariatric surgery. Information regarding medical complications of obesity and medical outcomes following surgery was included. A description of the different types of bariatric surgeries, introduction to the surgeons, risks and complications of bariatric surgery as well as surgical outcomes was provided. Patient respo nsibilities were reviewed. A question and answer session followed. The bariatric checklist was reviewed with patient and updated in addition to review of labs, imaging, and potential referrals. The patient agreed to try the plan as discussed and return in 1 month. They were encouraged to callor send a patient portal message in the meantime with any questions or concerns prior to their nextclinic visit. I spent a total of 20 minutes on the date of service in preparation, delivery, and documentation ofthe care provided to Elliott Muller excluding any time spent in the performance of separately billed services. This included but was no limited to providing counseling about the benefits of weight loss, about their nutritional status, detailed explanations about calorie count, types of nutrients to choose, and composition of the meals. Motivational interview provided in order to prepare the patient to achieve future goals. Arabella GUZMÁN, MPH [facility] ([facility]) documented in this encounter Plan of Treatment Upcoming Encounters Date Type Department Care Team (Late st Contact Info) Description 08/13/2024 1:30 PM EST Telemedicine Nutrition & Weight Management, [facility] [address] [place] [address] [facility], Surgery Class Provider Christina [address] [place] [address] 08/21/2024 2:30 PM EST Telemedicine [facility] [address] [place] [address] Jeane Reyes PsyD [address] [place] [address] 08/28/2024 3:10 PM EST Nutrition Services Nutrition & Weight Management, [facility] [address] [place] [address] Ketty Jean Baptiste RDN [address] [place] [address] 10/16/2024 9:30 AM EDT Office Visit Orthopaedics [facility] [address] [place] [phone] Niranjan Casiano DO [address] [place] [address] Health Maintenance Due Date Last Done Comments [...] o r Tdap) 02/05/2025 02/05/2015 Depression Screening 07/02/2025 07/02/2024 Diabetes Screening 06/24/2027 06/24/2024, 06/24/2024, 08/04/2020 [...] obesity due to excess calories (HCC)- Primary Folic acid deficiency Other B-complex deficiencies Zinc deficiency Mineral deficiency, not elsewhere classified documented in this encounter Care Teams Senior Production Planner Relationship Specialty Start Date End Date Aman Summers MD [address] [place] [address] [place] [address] PCP - General Internal Medicine 12/06/21 documented as of this encounter
--- OUTSIDE RECORDS SUMMARY | 2024-11-20 06:58 | External Medical Summary | Summary of Care ---
Author Name Unknown Organization [facility] Address [address] [place] [address] Phone [phone] Care Team Providers Care Voice Network Engineer Name Role Phone Aman Summers MD Primary Care Provi elliot Reason for Visit * Reason Comments Follow Up Bilat hips Encounter Details Date Type Department Care Team (Latest Contact Info) Description 10/16/2024 9:30 AM EDT Office Visit Orthopaedics [facility] [address] [place] [phone] Niranjan Casiano, [address] [place] [phone] Primary osteoarthritis of both hips* Allergies Active [...] Active Zepbound 7.5 MG/0.5ML Subcutaneous Solution Auto-injector (TirzeEmergent Game TechnologiesdeAmaru) Inject 7.5 mg (1 pen) under the [...] - 10/16/2024 9:30 AM EDT Elliott Sanchez [id number] Elliott Sanchez is a 49 year old male who presents to [facility] Medicine for bilateral intra-articular hip [...] Casiano, DO Primary Care Sports Medicine Orthopaedics [address] [address] This chart was completed in part utilizing timeplazza Speech Voice Recognition Software. Grammatical errors, random [...] Niranjan Casiano DO Sports Medicine Primary Care [facility] [address] [facility] [address] documented in this encounter Nursing Notes * [...] 01/20/2025 1:00 PM EDT Office Visit [facility]opaedics [facility] [place] [phone] Niranjan Casiano DO [address] [place] [phone] Health Maintenance Due Date Last Done Comments [...] Casiano DO Sports Medicine Primary Care Orthopaedics [address] [address] Procedure Note Niranjan Casiano DO - 10/16/2024 [...] Casiano DO Sports Medicine Primary Care Orthopaedics [address] [address] [place] Niranjan Casiano DO RAD ULTRASOUND Final [...] Left documented in this encounter Care Teams Voice Network Engineer Relationship Specialty Start Date End Date Aman Summers MD [address] [place] [address] [place] [address] PCP - General Internal Medicine 12/06/21 documented as of this encounter
--- OUTSIDE RECORDS SUMMARY | 2024-11-20 06:58 | External Medical Summary | Summary of Care ---
Author Name Unknown Organization [facility] Address [address] [place] [address] Phone [phone] Care Team Providers Care Union Organiser Name Role Phone Aman Summers MD Primary Care Provi elliot Reason for Visit * Reason Onset Date Comments Test Results 08/28/2024 Encounter Details Date Type Department Care Team (Late st Contact Info) Description 08/28/2024 Telephone Cardiology, [facility] [address] [place] [address] Ty Cortez, [address] [place] [address] Test Results Allergies Active Allergy Reactions Criticality Noted Date Comments Amoxicillin Rash 11/23/2014 Penicillins Rash 11/23/2014 documented as of this encounter (statuses as of 08/28/2024) Medications amLODIPine Besylate 10 MG Oral Tablet [...] Active Zepbound 7.5 MG/0.5ML Subcutaneous Solution Auto-injector (TirzeNeoDiagnostixdeRed Seraphim t Management) Inject 7.5 mg (1 pen) under the skin once a week. 2 mL 5 11:51 AM EST 08/07/19 25 Active Polyethylene Glycol 3350 17 GM Oral Packet (Miralax) Take 1 Packet by mouth in the morning. 30 Each 1 08/13/19 25 Active documented as of this encounter (statuses as of 08/28/2024) Active Problems No known active problems documented as of this encounter (statuses as of 08/28/2024) Immunizations Name Administration Dates Next Due TDAP [...] No 07/02/2024 Does the household have a [facility] source of income? (Household - for ages [...] No 07/02/2024 Are you (or your family) delorse eless or worried that you might be [...] encounter Miscellaneous Notes * Telephone Encounter - Diana Douglas LPN - 08/28/2024 9:08 AM EST ----- Message from Ty Cortez DO sent at 08/27/2024 5:04 PM EST ----- Dobutamine stress echo negative for inducible ischemia. Patient may proceed with bariatric surgery. No further cardiac testing recommended at this time. documented in this encounter Plan of Treatment Upcoming Encounters Date Type Department Care Team (Late st Contact Info) Description 08/28/2024 3:10 PM EST Nutrition Services Nutrition & Weight Management, [facility] [address] [place] [address] Ketty Jean Baptiste RDN [address] [place] [address] 09/02/2024 3:30 PM EST Telemedicine [facility] [place] [address] [place] [address] Jeane Reyes PsyD [address] [place] [address] 09/09/2024 4:40 PM EST Telemedicine Nutrition and Weight Management [facility] [address] [facility] [place] [address] Tenisha Matamoros PA-C [address] [place] [address] 10/16/2024 9:30 AM EDT Office Visit Orthopaedics [facility] [address] [place] [phone] Niranjan Casiano, [address] [place] [phone] Health Maintenance Due Date Last Done Comments [...] Not on filedocumented as of this encounter Care Teams Union Organiser Relationship Specialty Start Date End Date Aman Summers MD [address] [place] [address] [place] [address] PCP - General Internal Medicine 12/06/21 documented as of this encounter
--- OUTSIDE RECORDS SUMMARY | 2024-11-20 06:58 | External Medical Summary | Summary of Care ---
Author Name Unknown Organization [facility] Address [address] [place] [address] Phone [phone] Care Team Providers Care Credit Risk Officer Name Role Phone Aman Summers MD Primary Care Provi elliot Reason for Visit * Reason Comments eRx-Medication Refill Encounter Details Date Type Department Care Team (Late st Contact Info) Description 10/10/2024 Refill Nutrition & Weight Management, [facility] [address] [place] [address] Arabella Dobbs PA-C [address] [place] [address] Allergies Active Allergy Reactions Criticality Noted Date Comments Amoxicillin Rash 11/23/2014 Penicillins Rash 11/23/2014 documented as of this encounter (statuses as of 10/10/2024) Medications amLODIPine Besylate 10 MG Oral Tablet [...] mouth in the morning. 30 Tablet 5 024 Active Folic Acid 1 MG Oral TabletIndications :Folic acid deficiency Take 1 Tablet by mouth in the morning. 30 Tablet 3 024 Active Olmesartan Medoxomil 40 MG Oral Tablet (Benicar) Take 1 Tablet by mouth every evening. 024 Active Zepbound 7.5 MG/0.5ML Subcutaneous Solution Auto-injector (AmieSandipSt. Luke's McCall) Inject 7.5 mg (1 pen) under the skin once a week. 2 mL 3 09/18/19 25 11:20 AM EST 025 Active Polyethylene Glycol 3350 17 GM Oral Packet (Miralax) Take 1 Packet by mouth in the morning. 30 Packet 025 Active Polyethylene Glycol 3350 17 GM Oral Packet (Miralax) Take 1 Packet by mouth in the morning. 30 Each 1 025 2024 Discontinued documented as of this encounter (statuses as of 10/10/2024) Active Problems No known active problems documented as of this encounter (statuses as of 10/10/2024) Immunizations Name Administration Dates Next Due TDAP [...] Telephone Encounter - Arabella Dobbs PA-C - 10/10/2024 2:50 PM EDT Signed Prescriptions: Disp Refills Polyethylene Glycol 3350 17 GM Oral Packet*30 Pac*0 Sig: Take 1 Packet by mouth in the morning. Authorizing Provider: ARABELLA DOBBS * Telephone Encounter - Eugene Garcia CMA - 10/10/2024 11:11 AM EDTPending Prescriptions: Disp Refills Polyethylene Glycol 3350 17 GM Oral Packet*30 Pac*0 Sig: Take 1 Packet by mouth in the morning. * Telephone Encounter - Eugene Garcia CMA - 10/10/2024 11:05 AM EDT Did you pend patient's preferred pharmacy and medication before forwarding?yes [id number] [address] Pending Prescriptions: Disp Refills Polyethylene Glycol 3350 17 GM Oral Packe*30 Pac*0 Sig: Take 1 Packet by mouth in the morning. Last Visit: 06/24/2024 (in office), 08/13/2024 (telemedicine) Next Visit: Visit date not found If no future appointments scheduled, and last appointment is greater than a year ago, please schedule patient for a follow-up appointment Last date the medication was ordered: 08/13/24 Is this request for a controlled substance?No Urine Drug Screen:No results found for this or any previous visit. Patient Phone Numbers Labs: Lab Results Component Value Date/Time CREAT 1.2 06/24/2024 11:22 AM POTASSIUM 4.6 06/24/2024 11:22 AM POTASSIUM 5.0 10/27/2020 03:52 AM LDL 106 06/24/2024 11:22 AM ALT 16 06/24/2024 11:22 AM HGBA1C 5.6 06/24/2024 11:22 AM HGBA1C 5.7 08/04/2020 01:43 PM documented in this encounter Plan of Treatment Upcoming Encounters Date Type Department Care Team (Late st Contact Info) Description 10/16/2024 9:30 AM EDT Office Visit Orthopaedics [facility] [address] [place] [phone] Niranjan Casiano, [address] [place] [phone] Health Maintenance Due Date Last Done Comments [...] filedocumented as of this encounter Care Teams Credit Risk Officer Relationship Specialty Start Date End Date Aman Summers MD [address] [facility] [place] [address] PCP - General Internal Medicine 12/06/21 documented as of this encounter
--- OUTSIDE RECORDS SUMMARY | 2024-11-20 06:58 | External Medical Summary | Summary of Care ---
Author Name Unknown Organization [facility] Address [address] [facility] [place] [address] Phone [phone] Care Team Providers Care Food Editor Name Role Phone Aman Summers MD Primary Care Provi elliot Reason for Visit * Reason Comments Medication Refill Encounter Details Date Type Department Care Team (Late st Contact Info) Description 09/10/2024 [address]ill [address] [place] [phone] Arabella Dobbs PA-C [address] [place] [address] Allergies Active Allergy Reactions Criticality Noted Date Comments Amoxicillin Rash 11/23/2014 Penicillins Rash 11/23/2014 documented as of this encounter (statuses as of 09/11/2024) Medications amLODIPine Besylate 10 MG Oral Tablet [...] by mouth every evening. 05/27/20 24 Active Polyethylene Glycol 3350 17 GM Oral Packet (Miralax) Take 1 Packet by mouth in the morning. 30 Each 1 08/13/19 25 Active Zepbound 7.5 MG/0.5ML Subcutaneous Solution Auto-injector (Tirzepatide-Weigh t Management) Inject 7.5 mg (1 pen) under the skin once a week. 2 mL 3 09/11/19 25 Active Zepbound 7.5 MG/0.5ML Subcutaneous Solution Auto-injector (Tirzepatide-Weigh t Management) Inject 7.5 mg (1 pen) under the skin once a week. 2 mL 5 11:51 AM EST 08/07/19 25 025 Discontin ued(Refil l) documented as of this encounter (statuses as of 09/11/2024) Active Problems No known active problems documented as of this encounter (statuses as of 09/11/2024) Immunizations Name Administration Dates Next Due TDAP [...] 07/02/2024 Does the household have a re lar source of income? (Household - for ages [...] Telephone Encounter - Arabella Dobbs PA-C - 09/11/2024 11:16 AM EST Signed Prescriptions: Disp Refills Zepbound 7.5 MG/0.5ML Subcutaneous Solutio*2 mL 3 Sig: Inject 7.5 mg (1 pen) under the skin once a week.Authorizing Provider: ARABELLA DOBBS documented in this encounter Plan of Treatment Upcoming Encounters Date Type Department Care Team (Late st Contact Info) Description 10/16/2024 9:30 AM EDT Office Visit Orthopaedics [facility] [address] [place] [phone] Niranjan Casiano DO [address] [place] [phone] 11/04/2024 3:00 PM EDT Telemedicine [facility] [place] [facility] [address] Jeane Reyes PsyD [address] [facility] [address] Health Maintenance Due Date Last Done Comments [...] filedocumented as of this encounter Care Teams Food Editor Relationship Specialty Start Date End Date Aman Summers MD [address] [place] [address] [place] [address] PCP - General Internal Medicine 12/06/21 documented as of this encounter
--- OUTSIDE RECORDS SUMMARY | 2024-11-20 06:58 | External Medical Summary | Summary of Care ---
Author Name Unknown Organization [facility] Address [address] [place] [address] Phone [phone] Care Team Providers Care Shackler Name Role Phone Aman Summers MD Primary Care Provi elliot Reason for Visit * Reason Comments Follow Up Bilat hips Encounter Details Date Type Department Care Team (Latest Contact Info) Description 10/16/2024 9:30 AM EDT Office Visit Orthopaedics [facility] [address] [place] [phone] Niranjan Casiano, [address] [place] [phone] Primary osteoarthritis of both hips* Allergies Active [...] Active Zepbound 7.5 MG/0.5ML Subcutaneous Solution Auto-injector (TirzeValon LasersdeTekBrix IT Solutions) Inject 7.5 mg (1 pen) under the [...] - 10/16/2024 9:30 AM EDT Elliott Sanchez [phone] Elliott Sanchez is a 49 year old male who presents to [facility] Medicine for bilateral intra-articular hip injections [...] Casiano, DO Primary Care Sports Medicine Orthopaedics [address] [address] This chart was completed in part utilizing PixelFlow Speech Voice Recognition Software. Grammatical errors, random [...] Niranjan Casiano DO Sports Medicine Primary Care [facility] [address] [facility] [address] documented in this encounter Nursing Notes * [...] 01/20/2025 1:00 PM EDT Office Visit [facility]opaedics [facility] [place] [phone] Niranjan Casiano DO [address] [place] [phone] Health Maintenance Due Date Last Done Comments [...] Casiano DO Sports Medicine Primary Care Orthopaedics [address] [address] Procedure Note Niranjan Casiano DO - 10/16/2024 [...] Casiano DO Sports Medicine Primary Care Orthopaedics [address] [address] [place] Niranjan Casiano DO RAD ULTRASOUND Final [...] Left documented in this encounter Care Teams Shackler Relationship Specialty Start Date End Date Aman Summers MD [address] [place] [address] [place] [address] PCP - General Internal Medicine 12/06/21 documented as of this encounter
[2024-11-20 06:59] LABS: Albumin Globulin Ratio 1.1 (0.9-2); Albumin Level 3.9 gm/dl (3.4-5.0); BUN Creatinine Ratio 21.4 (10-20); Bilirubin,Total 0.4 mg/dl (0.2-1.0); Calcium 9.1 mg/dl (8.6-10.3); Creatinine Clr Calc Pharmacy 134.5 ml/min; Globulin 3.6 gm/dl (2.5-4.0); Potassium 4.4 mmol/L (3.5-5.1); Total Protein 7.5 gm/dl (6.0-8.3)
--- OUTSIDE RECORDS SUMMARY | 2024-11-20 06:59 | External Medical Summary | Summary of Care ---
Author Name Unknown Organization [facility] Address [address] [place] [address] Phone [phone] Care Team Providers Care Budget Consultant Name Role Phone Aman Summers MD Primary Care Provi elliot Reason for Visit * Reason Comments Outpatient Testing Encounter Details Date Type Department Care Team (Late st Contact Info) Description 06/24/2024 11:20 AM EST Laboratory Laboratory, [facility] [place] [phone] [facility] [address] [place] [address] Morbid obesity due to excess calories (HCC) Allergies Active Allergy Reactions Criticality Noted Date Comments Amoxicillin Rash 11/23/2014 Penicillins Rash 11/23/2014 documented as of this encounter (statuses as of 06/24/2024) Medications amLODIPine Besylate 10 MG Oral Tablet (Norvasc) Take 1 Tablet by mouth. Active Irbesartan 300 MG Oral Tablet (Avapro) Take 1 Tablet by mouth. Active Diclofenac Sodium 75 MG Oral Tablet Delayed Release (Voltaren) Take 1 Tablet by mouth in the morning and 1 Tablet before bedtime. 10/01/19 23 Active Cyclobenzaprine HCl 10 MG Oral Tablet (Flexeril) 1 Tablet as needed. 12/06/19 23 Active Albuterol Sulfate HFA 108 (90 [...] Aspirin 325 MG Oral Tablet Delayed Release 1 Tablet. 03/07/20 23 Active Cholecalciferol 1.25 MG (08845 UT) Oral Capsule 1 Capsule once a week. 12/07/19 23 Active Methylcobalamin 1 MG Oral Tablet Chewable daily. 02/06/20 24 Active Ondansetron 4 MG Oral Tablet Disintegrating (Zofran) Take 1 Tablet by mouth. 02/24/20 23 Active Topiramate 25 MG Oral Tablet (topAMAX) Take 1 Tablet by mouth in the morning. 30 Tablet 5 05/28/20 24 Active Zepbound 7.5 MG/0.5ML Subcutaneous Solution Auto-injector (TirzePodio) Inject 7.5 mg under the skin once a week. 2 mL 2 06/24/20 24 Active documented as of this encounter (statuses as of 06/24/2024) Active Problems No known active problems documented as of this encounter (statuses as of 06/24/2024) Immunizations Name Administration Dates Next Due TDAP (age 10 and older)(Boostrix) 02/05/2015 documented as of this encounter Social History Tobacco Use Types Packs/Day Years Used Date Smoking Tobacco: Never Smokeless Tobacco: Never Alcohol Use Standard Drinks/Week Comments No 0 (1 standard drink = 0.6 oz pur e alcohol) Sex and Gender Information Value Date Recorded Sex Assigned at Male 04/24/2024 10:59 AM EDT Legal Sex Male 6:59 AM EST Gender Identity Male 04/24/2024 10:59 AM EDT Sexual Orientation Straight 04/24/2024 10 :59 AM EDT documented as of this encounter Plan of Treatment Upcoming Encounters Date Type Department Care Team (Late st Contact Info) Description 07/01/2024 11:15 AM EST Imaging Radiology [facility] [address] [facility] [place] [address] 07/01/2024 1:15 PM EST Cardiac Studies Cardiac Studies, [facility] [address] [place] [address] 07/02/2024 9:00 AM EST Telemedicine [facility] [place] [address] [facility] [place] [address] Jeane Reyes PsJc [address] [place] [address] 07/18/2024 2:30 PM EST Office Visit Orthopaedics [facility] [address] [place] [address] Niranjan Casiano, [address] [place] [address] 08/13/2024 12:40 PM EST Telemedicine Nutrition & Weight Management, [facility] [address] [place] [address] Arabella Dobbs PA-C [address] [place] [address] 08/13/2024 1:30 PM EST Telemedicine Nutrition & Weight Management, [facility] [address] [place] [address] [facility], Surgery Class Provider [facility] [address] [place] [address] 08/28/2024 3:10 PM EST Nutrition Services Nutrition & Weight Management, [facility] [address] [place] [address] Ketty Jean Baptiste RDN [address] [place] [address] 09/06/2024 9:00 AM EST Office Visit Cardiology, [facility] [address] [place] [address] Ty Cortez O, DO [address] [place] [address] Pending Results Name Type Priority Associated Diagnoses Date /Time VITAMIN A (RETINOL) Lab Routine Morbid obesity due to excess calories (HCC) 06/24/2024 11:22 AM EST ZINC Lab Routine Morbid obesity due to excess calories (HCC) 06/24/2024 11:22 AM EST FOLIC ACID Lab Routine Morbid obesity due to excess calories (HCC) 06/24/2024 11:22 AM EST PTH Lab Routine Morbid obesity due to excess calories (HCC) 06/24/2024 11:22 AM EST COPPER, SERUM OR PLASMA Lab Routine Morbid obesity due to excess calories (HCC) 06/24/2024 11:22 AM EST IRON SCREEN, INCLUDING TIBC Lab Routine Morbid obesity due to excess calories (HCC) 06/24/2024 11:22 AM EST FERRITIN Lab Routine Morbid obesity due to excess calories (HCC) 06/24/2024 11:22 AM EST VITAMIN B1 (THIAMINE), BLOOD, LC/MS/MS Lab Routine Morbid obesity due to excess calories (HCC) 06/24/2024 11:22 AM EST VITAMIN B12 Lab Routine Morbid obesity due to excess calories (HCC) 06/24/2024 11:22 AM EST INSULIN Lab Routine Morbid obesity due to excess calories (HCC) 06/24/2024 11:22 AM EST COMPREHENSIVE METABOLIC PANEL Lab Routine Morbid obesity due to excess calories (HCC) 06/24/2024 11:22 AM EST HEMOGLOBIN A1C Lab Routine Morbid obesity due to excess calories (HCC) 06/24/2024 11:22 AM EST LIPID PANEL WITH DIRECT LDL IF TG IS HIGH Lab Routine Morbid obesity due to excess calories (HCC) 06/24/2024 11:22 AM EST 25-HYDROXY VITAMIN D Lab Routine Morbid obesity due to excess calories (HCC) 06/24/2024 11:22 AM EST Health Maintenance Due Date Last Done Comments Lipid Panel 1974 Depression Screening 1986 HIV Screening 1989 Hepatitis C Screening 1992 Hepatitis B Vaccine (1 of 3 - 19+ 3-dose series) 1993 Cologuard 2019 Colonoscopy 2019 Colorectal Cancer Screening 2019 Fecal Occult Blood Test 2019 Sigmoidoscopy 2019 Pneumococcal Vaccine: Pediatrics (0 to 5 Years) and At-Risk Patients (6 to 64 Years) (2 of 2 - PCV) 06/28/2022 06/28/2021 Diabetes Screening 08/04/2023 08/04/2020 COVID-19 Vaccine (3 - 2023-2 5 season) 2024 12/27/2021, 01/21/2021 Influenza Vaccine (FLU shot) (#1) 2024 06/28/2021 DTap/Tdap Vaccines (2 - Td o r Tdap) 02/05/2025 02/05/2015 HPV (Gardasil) Vaccine Aged Out No lo nger eligible based on patient's age to complete this topic MENINGOCOCCAL (MENACTRA/MENVEO) Aged Out No longer eligible b ased on patient's age to complete this topic documented as of this encounter Medical Devices Not on filedocumented as of this encounter Procedures Procedure Name Priority Date/Time Associated Diagnosis Comments CBC Routine 06/24/2024 11:22 AM EST Morbid obesity due to excess calories (HCC) documented in this encounter Results * (ABNORMAL) CBC (06/24/2024 11:22 AM EST) WBC 14.58(H) 4.00 - 10.80 K/uL 06/24/2024 11:36 AM EST [facility] RBC 5.39 4.50 - 5.25 M/uL 06/24/2024 11:36 AM EST [facility] [place]10 HGB 14.2 14.0 - 16.8 g/dL 06/24/2024 11:36 AM EST [facility]10 HCT 45.1 40.0 - 48.4 % 06/24/2024 11:36 AM EST [facility]10 MCV 83.7 82.0 - 99.5 fL 06/24/2024 11:36 AM EST [facility] [place] [facility]10 MCH 26.3 27.0 - 34.0 pg 06/24/2024 11:36 AM EST [facility] [place]10 MCHC 31.5 32.0 - 36.0 g/dL 06/24/2024 11:36 AM EST [facility]10 RDW 15.6 11.5 - 15.5 % 06/24/2024 11:36 AM EST [facility]10 PLT 282 140 - 400 K/uL 06/24/2024 11:36 AM EST [facility]10 MPV 10.4 6.6 - 11.1 fL 06/24/2024 11:36 AM EST [facility]10 Blood Venous blood specimen / Unknown Venipuncture / Unknown 06/24/2024 11:22 AM EST 06/24/2024 11:22 AM EST Maya Moreau PA-C LAB BLOOD ORDERABLES F inal Result [facility]10 [address] [facility] [place] [address] documented in this encounter Visit Diagnoses Diagnosis Morbid obesity due to excess calories (HCC) documented in this encounter Care Teams Budget Consultant Relationship Specialty Start Date End Date Aman Summers MD [address] [place] [address] [place] [address] PCP - General Internal Medicine 12/06/21 documented as of this encounter
--- OUTSIDE RECORDS SUMMARY | 2024-11-20 06:59 | External Medical Summary ---
Author Name Unknown Address Unknown Organization [id number]:LAB[facility]ATORY [facility] - [address] [place] [address] Laboratory Report Ordering Provider Test Date Status DONALDO PIEDRA 06/24/2024 11:22:42 Final Deficient: <20 ng/mL
Ins ufficient: 20-29 ng/mL
Recommended/Optimum:30-50 ng/mL

Vitamin D intoxication is rare. If suspicious of Vitamin D toxicity, evaluation of serum Calcium and PTH is recommended. Observation Date Value Abnormality Reference (Units ) Status 25-OH Vitamin D total 06/24/2024 11:22:42 32 >19 (ng/mL) Final Performing Location LAB[facility]ORY [facility] - [address] [place] [address]
--- OUTSIDE RECORDS SUMMARY | 2024-11-20 06:59 | External Medical Summary | Summary of Care ---
Author Name Unknown Organization [facility] Address [address] [facility] [place] [address] Phone [phone] Care Team Providers Care Outpatient Psychiatrist Name Role Phone Aman Summers MD Primary Care Provi elliot Reason for Visit * Reason Comments Dosage Adjustment Via Phone (anticoag Cl inic) Encounter Details Date Type Department Care Team (Late st Contact Info) Description 07/12/2024 1:30 PM EST Telemedicine Endocrinology [address] [place] [phone] Domingo, Pharmacist Endocrinology [address] [place] [address] Obesity, unspecified class, unspecified obesity type, unspecified whether serious comorbidity present* Allergies Active Allergy Reactions Criticality Noted Date Comments Amoxicillin Rash 11/23/2014 Penicillins Rash 11/23/2014 documented as of this encounter (statuses as of 07/12/2024) Medications amLODIPine Besylate 10 MG Oral Tablet [...] Tablet. 03/07/20 23 Active Cholecalciferol 1.25 MG (04242 UT) Oral Capsule 1 Capsule once a [...] Auto-injector (Tirzepatide-Weigh t Management) Inject 7.5 mg under the skin once a week. 2 mL 2 06/24/20 24 Active Folic Acid 1 MG Oral TabletIndications: Folic acid deficiency Take 1 Tablet by mouth in the morning. 30 Tablet 3 07/02/20 24 Active Zepbound 7.5 MG/0.5ML Subcutaneous Solution Auto-injector (Tirzepatide-Weigh t Management) Inject 7.5 mg (1 pen) under the skin once a week. 2 mL 2 06/24/20 24 Active documented as of this encounter (statuses as of 07/12/2024) Active Problems No known active problems documented as of this encounter (statuses as of 07/12/2024) Immunizations Name Administration Dates Next Due TDAP [...] as of this encounter Progress Notes * Nina Garcia, [facility] - 07/12/2024 2:47 PM EST GLP-1 Medication Therapy Status Check After connecting to the patient via telephone, the patient was identified by name and date of . Patient was then informed that this was a telephone call only visit. The patient agreed to participate Visit Disposition: Status check Duration: 4 minutes Name: Elliott Muller Diagnosis: Obesity Current GLP1 therapy: Zepbound 7.5mg weekly OBJECTIVE Estimated body mass index is 61.83 kg/m² as calculated from the following: Height as of 06/24/24: 1.803 m (5' 11"). Weight as of 06/24/24: 201.1 kg (443 lb 4.8 oz). BP Readings from Last 3 Encounters: 06/24/24 128/88 05/08/24 150/86 03/29/24 144/82 Hemoglobin AIC Results: Lab Results Component Value Date/Time HEMOGLOBIN A1C - [facility] 5.6 06/24/2024 11:22 AM No results found for: "MICROALBUMIN" MEDICATION USE ASSESSMENT Patient is adherent to current prescribed dose of GLP1 therapy? Yes, patient taking as prescribed Allergic / Local Reactions Reported: No Side Effects Reported: No side effects, tolerating well PLAN The patient was educated on when to contact provider with change of symptoms or tolerability to medication. Continue medication as prescribed. Nina Garcia, PharmD, [facility], [facility] Ambulatory Clinical Pharmacist 07/12/2024, 2:48 PM documented in this encounter Plan of Treatment Upcoming Encounters Date Type Department Care Team (Late st Contact Info) Description 07/18/2024 2:30 PM EST Office Visit Orthopaedics [facility] [address] [address] Niranjan Casiano DO [address] [address] 08/13/2024 12:40 PM EST Telemedicine Nutrition & Weight Management, [facility] [address] [address] Arabella Dobbs PA-C [address] [place] [address] 08/13/2024 1:30 PM EST Telemedicine Nutrition & Weight Management, [facility] [address] [facility] [place] [address] [facility], Surgery Class Provider [facility] [address] [facility] [place] [address] 08/21/2024 2:30 PM EST Telemedicine [facility], [place] [address] [facility] [place] [address] Jeane Reyes PsyD [address] [facility] [place] [address] 08/28/2024 3:10 PM EST Nutrition Services Nutrition & Weight Management, [facility] [address] [facility] [place] [address] Ketty Jean Baptiste RDN [address] [place] [address] 09/06/2024 9:00 AM EST Office Visit Cardiology, [facility] [address] [facility] [place] [address] Ty Cortez DO [address] [place] [address] Health Maintenance Due Date Last Done Comments [...] as of this encounter Visit Diagnoses Diagnosis Obesity, unspecified class, unspecified obesity type, unspecified whether serious comorbidity present- Primary documented in this encounter Care Teams Outpatient Psychiatrist Relationship Specialty Start Date End Date Aman Summers MD [address] [facility] [place] [address] PCP - General Internal Medicine 12/06/21 documented as of this encounter
--- OUTSIDE RECORDS SUMMARY | 2024-11-20 06:59 | External Medical Summary | Summary of Care ---
Author Name Unknown Organization [facility] Address [address] [place] [address] Phone [phone] Care Team Providers Care Oncology Consultant Name Role Phone Aman Summers MD Primary Care Provi elliot Reason for Visit * Reason Comments Bariatric Surg Psych Eval * - Authorized Specialty Diagnoses / Procedures Referred By Contac t Referred To Contact Referral ID Status Reason Start Date Expiration Date V isits Requested Visits Authorized [id number] Authorized 06/23/2024 06/22/2025 [id number] Encounter Details Date Type Department Care Team (Late st Contact Info) Description 07/02/2024 9:00 AM EST [facility] [address] [facility] [place] [address] Jeane Reyes PsyD [address] [facility] [place] [address] Morbid obesity due to excess calories (HCC)*; Psychological factors affecting medical condition Allergies Active Allergy Reactions Criticality Noted Date Comments Amoxicillin Rash 11/23/2014 Penicillins Rash 11/23/2014 documented as of this encounter (statuses as of 07/02/2024) Medications amLODIPine Besylate 10 MG Oral Tablet [...] Tablet. 03/07/20 23 Active Cholecalciferol 1.25 MG (41894 UT) Oral Capsule 1 Capsule once a week. 12/07/19 23 Active Methylcobalamin 1 MG Oral Tablet Chewable daily. 02/06/20 24 Active Ondansetron 4 MG Oral Tablet Disintegrating (Zofran) Take 1 Tablet by mouth. 02/24/20 23 Active Topiramate 25 MG Oral Tablet (topAMAX) Take 1 Tablet by mouth in the morning. 30 Tablet 5 05/28/20 24 Active Zepbound 7.5 MG/0.5ML Subcutaneous Solution Auto-injector (TirzepatideSurIDxWeigh t Management) Inject 7.5 mg under the skin once a week. 2 mL 2 06/24/20 24 Active Folic Acid 1 MG Oral TabletIndications: Folic acid deficiency Take 1 Tablet by mouth in the morning. 30 Tablet 3 07/02/20 24 Active documented as of this encounter (statuses as of 07/02/2024) Active Problems No known active problems documented as of this encounter (statuses as of 07/02/2024) Immunizations Name Administration Dates Next Due TDAP [...] as of this encounter Progress Notes * Jeane Reyes PsyD - 07/02/2024 9:00 AM EST BEHAVIORAL MEDICINE ASSESSMENT FOR BARIATRIC SURGERY [facility] [address] [place] [address] [address] 07/02/2024 8:47 AM REASON FOR REFERRAL Elliott Muller ([id number]) is a 48 year old male who comes on referral from Nutrition and Weight Management for psychological evaluation and preparation for potential bariatric surgery. Elliott's primary care provider is Aman Summers MD. A review was conducted of the medical record. Time spent onthis visit was 60 minutes. Recommendations Based on Psychological Evaluation: YELLOW PSYCHOLOGICAL CONDITION- It is my professional opinion that surgery for Elliott should be postponed until successful completion of recommendations as noted below. Summary: The decision noted above is based on [...] is a medical indication for weight gain. Behavioral Recommendations: Elliott has a Yellow light from Behavioral Medicine. Your surgery will be postponed until successful completion of the recommendations noted below. The follow up plan is as follows: appointment scheduled in 6-8 weeks Continue progress on weight loss goal., Stop caffeine., and Continue behavioral changes, especially: -Eating slowly, chewing food to applesauce consistency. Take between 20-40 chews depending on food,set aside plenty of time for the meal, take smaller bites (children's utensils can help with this),leave reminders for yourself (e.g., notes, signs) in the places you eat - eating and drinking by 30 minutes. Don't bring a drink to the table, decrease amount over time (e.g., ¾ glass, then ½ glass, then ¼ glass, etc), avoid really dry foods/try to eat moistfoods, set a timer (can taper up gradually), leave notes for yourself (on the table, refrigerator, and cabinet doors tend to be good places), minimize salty foods, chew food more to produce more saliva -Eating three meals, and two snacks per [...] don't wait until you're thirsty to drink If you have any questions, you can contact Jeane Reyes PsyD at . Patient location: HOME. I was in a hospital or clinic location. After connecting through [employer],patient was verified with two unique identifiers. Due to audio difficulties the remainder of this appointment was conducted via telephone. 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 Methods to assure confidentiality were taken. Patient acknowledged consent and understanding of privacy and security of the Telemedicine visit. The patient agreed to participate. Provider determined this patient has capacity to receive and benefit from telehealth services. Face to Face Start Time: 9:00 AM Face to Face Stop Time: 10:00 AM Referral Source: Maya Moreau PA-C Risk Assessment: Completed and No acute safety concerns History of Present Illness: Bariatric Surgery: [facility] Checklist Date: 07/02/2024 Elliott prefers gastric bypass procedure. Weight History: Current Weight: as of 07/02/2024 is 443 lbs Wt Readings from Last 5 Encounters: 06/24/24 (!) 201.1 kg (443 lb 4.8 oz) 05/08/24 (!) 203.8 kg (449 lb 4.8 oz) 03/29/24 (!) 211.8 kg (466 lb 14.4 oz) 03/21/22 (!) 206.8 kg (456 lb) 12/22/21 (!) 218.2 kg (481 lb) Weight Changes: weight decreased by 23lbs (525 lbs a couple of years ago) Pre-surgery weight goal: 443 lbs Progress in meeting pre-surgery weight goal: excellent Age when first became concerned about weight: "never really concerned about weight, raised on farm,can still do things", sustained injury which resulted in hip pain, reduction in pain is main goal "always been heavy my entire life, but as getting older, hip pain is cause for surgery" Since then weight has: has gradually increased over the years, fluctuated up and down, been decreasing Before covid, was watching what was eating, going to the gym 4 days a week, had surgery, got sick, off work for 5-6 months, "covid screwed me up" Current weight reduction strategies and methods: increasing exercise and increasing protein, increasing water consumption, reducing soda consumption, making healthier food choices, looking at calories/food labels, trying to eat more veggies, butchers own food (beef) which is increasing cooking at home. Problematic Eating Behaviors: History of binge eating episodes: Mild (1-3 episodes per week). 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 If h/o objective binge eating, when was the last binge? greater than 1 year "haven't done that in along time" History of self-induced vomiting or other compensatory strategies (i.e., laxatives, diuretics): None. If h/o compensatory behaviors, methods used: n/a If h/o compensatory behaviors, when was the last episode? not applicable History of caloric restriction/meal skipping: None. If h/o restriction, was this primarily to influence shape/weight: n/a If h/o restriction, when was the last episode? not applicable History of waking at night to eat/late night eating right before bed: None. History of waking to evidence of having eaten but with no recall: None. If h/o night eating, when was the last episode? not applicable History of grazing (picking on food between planned meals and snacks): None. If h/o grazing, when was the episode? not applicable History of emotional eating: None. If h/o emotional eating, when was the last episode? not applicable High Risk Eating Situations Other high-risk times and places where Elliott is likely to engage in potentially harmful eating behaviors include: eating at holiday gatherings Elliott is aware of eating patterns and adaptive coping strategies: focusing on right hip, reminding self of driving Motivation for and Knowledge of Surgery: Length of time considering surgery: 2 years. Motivation for surgery: To become more active To reduce pain in hips To resolve or reduce current health problems (blood pressure and sleep apnea) Strength of motivation for surgery: good Elliott is 100% convinced to have this surgery (100% = ”sign me up tomorrow”). Mixed feelings/concerns: denied weighing out pros and cons about surgery, modifying behavior Surgery concerns: none Knowledge of the procedure: has read the book, Weight Loss Surgery and spoken with patients who have had the surgery Aware of surgical risks, including: <1% mortality, 20% complication risks after surgery (e.g., leakages, infections, blood clots), 20% emotional/ups and downs, and that skin may be loose and insurance may not cover plastic surgery. REALISTIC POSTSURGICAL GOALS/EXPECTATIONS Elliott’s stated weight loss goal after surgery: 300 lbs This goal is realistic based on information provided by the Nutrition/Surgery team and the Get 2 Goal cruzito. Understanding of Eating Changes After Surgery: Aware of the four stages of eating following surgery: Sugar-free clear liquids right after surgery (typically for less than 24 hours) Protein shakes (fat-free portuguese yogurt, nonfat yogurt, non-fat or 1% milk, tomato soup) - 2 weeks before and after surgery 2b. Can add cottage cheese, eggs, ricotta cheese (low fat) Add soft protein (fish, turkey, chicken, tofu, veggie burger) but no fruits, vegetables, or starches ~8 weeks after surgery Introduction of regular foods, including fruits, vegetables, and starches ~2 months after surgery Elliott has concerns or anticipates problems with the stages of eating: No Aware of the need to prioritize protein. Aware of possibility that food tastes may change. Elliott's knowledge of eating requirements after surgery: good Post-Surgery Eating Habit Changes and Readiness: Aware of the following eating habit changes and is practicing them to the following extent already (50% = half meals/week; 100% = every meal/week): Eating slowly, chewing food to applesauce consistency: Aware of the need and practicing about 50-70% of the time and has been practicing at this rate for about 2 months. "Depending upon if in a hurry" eating and drinking by 30 minutes before and after meals and snacks: Aware of the need and practicing about 70% of the time and has been practicing at this rate for about 1 month. "Been really diligent about this" Eating smaller quantities: Aware of the need and practicing about 100% of the time and has been practicing at this rate for about 1 month. Drinking 4-5 bottles of propel per day (16.9) oz of water daily (64 oz goal unless pt has fluid restriction due to a medical condition) Has difficulty with sipping drinks slowly: yes Has difficulty with NOT using straws to drink: no Other daily beverages (excluding protein shakes): snapple tea or arnold arango light Eating regular schedule with 3 meals and 1-3 snacks per day (sleeve requires only 3 meals, no snacks): Aware of the need and practicing 7 days of the week and has been practicing at this rate for about 3 months. 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 Take between 20-40 chews depending on food,set aside plenty of time for the meal, take smaller bites (children's utensils can help with this),leave reminders for yourself (e.g., notes, signs) in the places you eat - eating and drinking by 30 minutes. Don't bring a drink to the table, decrease amount over time (e.g., ¾ glass, then ½ glass, then ¼ glass, etc), avoid really dry foods/try to eat moistfoods, set a timer (can taper up gradually), leave notes for yourself (on the table, refrigerator, and cabinet doors tend to be good places), minimize salty foods, chew food more to produce more saliva "Used to eating fast" Adherence and Attendance: Number of no-show appointments in the past 6 months: 1 Number of cancelled appointments in the past 6 months (excluding provider cancellations or those cancelled d/t COVID): 0 Reason for cancellations/no shows: unaware Take all medications as prescribed: Yes Current obstructive sleep apnea diagnosis? Yes If yes, nights per week wearing CPAP/BiPAP: not presently, waiting on new machine for over 2 months, expressed frustration Potential work schedule conflict? no Adequate time to recover from surgery before returning to work? yes Current stressors or anticipated stressful events that might interfere with Elliott focusing on necessary habit changes before or after surgery include: none Severity of stressor(s): none Potential barriers to treatment compliance (attending appointments, taking vitamins and supplements, accessing healthy food and protein shakes): none identified Current Social Support Network: Primary social support comes from: , mom . Identified post-surgery caregiver(s): and mom . Quality of EMOTIONAL support (e.g., help maintaining diet/exercise): Good. Quality of TASK support (e.g., help with post-surgical care): Good. Support network reactions to bariatric surgery: very supportive Elliott's social support network is: good Patient's last PHQ-9 score (Adult) - 1 and Patient's last NORTH-7 score - Total:2 Psychiatry Review of Systems: PSYCHIATRY REVIEW OF SYSTEMS Pain screening: Is patient experiencing any pain related to today's visit? Yes - right hip pain Nutritional Screening: Weight loss/gain of 10 pounds or more in last 3 months and Decrease in food intake and/or loss of appetite Past Psychiatric History: Outpatient Treatment: None Inpatient Treatment: None Self injury and suicide attempts: None Prior psychotropic medical trials: None History of trauma, abuse, exploitation or trafficking: none Substance Use History: Caffeinated beverages: occasional tea, drinking a lot of propel, cut down on soda consumption, looking to find decaf tea Tobacco: Denied Vaping: Denied Alcoholic beverages: denied Marijuana: Denied Illicit Drugs: Denied Family Psychiatric History: Psychiatric diagnoses: None Attempted suicides/ by suicide:None Drug and alcohol abuse: None Personal, Family and Social History: Living situation: and og 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; 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 Legal History: None Intellectual Disability Diagnosis: No Activities of Daily Living: Good Additional community service involvement: None Leisure and recreational interest: Spending time with , day trips Zoroastrian/Spiritual Orientation: None Mental Status Evaluation: Appearance: Well groomed, casually dressed, appearing stated age, obese Abnormal Movement: No abnormal movements noted Behavior: Calm, cooperative and appropriate Speech and Language: Normal in rate, rhythm, volume and tone, talkative Mood: Euthymic Affect: Appropriate to context and [...] Good Judgement: Good Fund of Knowledge: Good Assessment/Formulation: Elliott Muller is a 48 year old male seen today by behavioral medicine FOR BARIATRIC SURGERY and recommendations associated with today's evaluation can be found above. Diagnosis: ICD-10-CM 1. Morbid obesity due to excess calories (HCC) E66.01 2. 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 Patient and/or caregiver verbalize understanding and agrees to plan with explanation of risks/benefits, aware of how to contact clinic with questions. documented in this encounter Plan of Treatment Upcoming Encounters Date Type Department Care Team (Late st Contact Info) Description 07/18/2024 2:30 PM EST Office Visit Orthopaedics [facility] [address] [facility] [place] [address] Niranjan Casiano DO [address] [place] [address] 08/13/2024 12:40 PM EST Telemedicine Nutrition & Weight Management, [facility] [address] [facility] [place] [address] Arabella Dobbs PA-C [address] [place] [address] 08/13/2024 1:30 PM EST Telemedicine Nutrition & Weight Management, [facility] [address] [facility] [place] [address] [facility], Surgery Class Provider [facility] [address] [facility] [place] [address] 08/21/2024 2:30 PM EST Telemedicine [facility] [address] [address] Jeane Reyes PsyD [address] [address] 08/28/2024 3:10 PM EST Nutrition Services Nutrition & Weight Management, [facility] [address] [place] [address] Ketty Jean Baptiste RDN [address] [place] [address] 09/06/2024 9:00 AM EST Office Visit Cardiology, [facility] [address] [place] [address] Ty Cortez DO [address] [place] [address] Scheduled Referrals Name Type Priority Associated Diagnoses Orde r Schedule ADULT/PEDS PSYCHOLOGY REFERRAL OP Referral Within 10 days (routine) Morbid obesity due to excess calories (HCC) Ordered: 06/24/2024 Health Maintenance Due Date Last Done Comments [...] - 2023-2 5 season) 2024 12/27/2021, 01/21/2021 DTap/Tdap Vaccines (2 - Td o r [...] elsewhere documented in this encounter Care Teams Oncology Consultant Relationship Specialty Start Date End Date Aman Summers MD [address] [place] [address] [place] [address] PCP - General Internal Medicine 12/06/21 documented as of this encounter
--- OUTSIDE RECORDS SUMMARY | 2024-11-20 06:59 | External Medical Summary | Summary of Care ---
Author Name Unknown Organization [facility] Address [address] [place] [address] Phone [phone] Care Team Providers Care Vessel Engineer Name Role Phone Aman Summers MD Primary Care Provi elliot Reason for Visit * Reason Comments Follow Up B/L hip Pain Encounter Details Date Type Department Care Team (Latest Contact Info) Description 07/18/2024 2:30 PM EST Office Visit Orthopaedics [facility] [address] [place] [address] Niranjan Casiano, [address] [facility] [place] [address] Primary osteoarthritis of both hips* Allergies Active Allergy Reactions Criticality Noted Date Comments Amoxicillin Rash 11/23/2014 Penicillins Rash 11/23/2014 documented as of this encounter (statuses as of 07/18/2024) Medications amLODIPine Besylate 10 MG Oral Tablet (Norvasc) Take 1 Tablet by mouth. Active Irbesartan 300 MG Oral Tablet (Avapro) Take 1 Tablet by mouth. Active Diclofenac Sodium 75 MG Oral Tablet Delayed Release (Voltaren) Take 1 Tablet by mouth in the morning and 1 Tablet before bedtime. 10/01/19 Active Cyclobenzaprine HCl 10 MG Oral Tablet (Flexeril) 1 Tablet as needed. 12/06/19 Active Albuterol Sulfate HFA 108 (90 Base) MCG/ACT Inhalation Aerosol Solution inhale 2 puffs by mouth and INTO THE LUNGS every 6 hours if neede... (REFER TO PRESCRIPTION NOTES). 12/31/19 Active Budesonide-Formote rol Fumarate 160-4.5 MCG/ACT Inhalation Aerosol (Symbicort) Inhale 2 Puffs by mouth in the morning and 2 Puffs before bedtime. Active CPAP 03/26/20 Active Aspirin 325 MG Oral Tablet Delayed Release 1 Tablet. 03/07/20 Active Cholecalciferol 1.25 MG (58166 UT) Oral Capsule 1 Capsule once a week. 12/07/19 23 Active Methylcobalamin 1 MG Oral Tablet Chewable daily. 02/06/20 24 Active Ondansetron 4 MG Oral Tablet Disintegrating (Zofran) Take 1 Tablet by mouth. 02/24/20 Active Topiramate 25 MG Oral Tablet (topAMAX) [...] skin once a week. 2 mL 2 8:19 AM EST 06/24/20 Active Hospital, Clinic, or Other Facility Administered Medication Ordered Dose Route Frequency Start Date End Date Status lidocaine 1% 1 mL - triamcinolone acetonide 40 mg/mL 1 mL inj 2 mLIndications:Primary osteoarthritis of both hips 2 mL IJ ONCE 07/18/2024 07/18/20 24 Ended lidocaine 1% 1 mL - triamcinolone acetonide 40 mg/mL 1 mL inj 2 mLIndications:Primary osteoarthritis of both hips 2 mL IJ ONCE 07/18/2024 07/18/20 24 Ended documented as of this encounter (statuses as of 07/18/2024) Active Problems No known active problems documented as of this encounter (statuses as of 07/18/2024) Immunizations Name Administration Dates Next Due TDAP [...] Progress Notes * Niranjan Casiano, DO - 07/18/2024 2:30 PM EST Elliott Sanchez [id number] Elliott Sanchez is a 49 year old male who presents to [facility] for bilateral intra-articular hip injections Elliott Sanchez is here unacompanied Date of Injury: no injury, pain x years 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 TODAY: he would like repeat injections, last injected 04/17/2024 Review of Systems: no fevers or chills, no unexplained weight loss, no rashes or all other pertinent systems negative. Past Medical History: Diagnosis Date DJD (degenerative joint disease) HTN (hypertension) LESVIA (obstructive sleep apnea) Current Outpatient Medications Medication Sig Dispense Refill amLODIPine Besylate 10 MG Oral Tablet (Norvasc) Take 1 Tablet by mouth. Irbesartan 300 MG Oral Tablet (Avapro) Take 1 Tablet by mouth. Diclofenac Sodium 75 MG Oral Tablet Delayed Release (Voltaren) Take 1 Tablet by mouth in the morning and 1 Tablet before bedtime. Cyclobenzaprine HCl 10 MG Oral Tablet (Flexeril) 1 Tablet as needed. (Patient not taking: Reported on 06/24/2024) Albuterol Sulfate HFA 108 (90 Base) MCG/ACT Inhalation Aerosol Solution inhale 2 puffs by mouth andINTO THE LUNGS every 6 hours if neede... (REFER TO PRESCRIPTION NOTES). Budesonide-Formoterol Fumarate 160-4.5 MCG/ACT Inhalation Aerosol (Symbicort) Inhale 2 Puffs by mouth in the morning and 2 Puffs before bedtime. CPAP Aspirin 325 MG Oral Tablet Delayed Release 1 Tablet. Cholecalciferol 1.25 MG (83077 UT) Oral Capsule 1 Capsule once a week. Methylcobalamin 1 MG Oral Tablet Chewable daily. Ondansetron 4 MG Oral Tablet Disintegrating (Zofran) Take 1 Tablet by mouth. Topiramate 25 MG Oral Tablet (topAMAX) Take 1 Tablet by mouth in the morning. 30 Tablet 5 Zepbound 7.5 MG/0.5ML Subcutaneous Solution Auto-injector (Tirzepatide-Weight Management) Inject 7.5 mg under the skin once a week. 2 mL 2 Folic Acid 1 MG Oral Tablet Take 1 Tablet by mouth in the morning. 30 Tablet 3 Zepbound 7.5 MG/0.5ML Subcutaneous Solution Auto-injector (Tirzepatide-Weight Management) Inject 7.5 mg (1 pen) under the skin once a week. 2 mL 2 No current facility-administered medications for this visit. Assessment and Plan: will repeat injections, follow up 3 months, continue weight loss as [facility] is probably his best long-term option Primary osteoarthritis of both hips (Primary) - POINT OF CARE US MAJOR JOINT INJECTION, ORTHO - lidocaine 1% 1 mL - triamcinolone acetonide 40 mg/mL 1 mL inj 2 mL - lidocaine 1% 1 mL - triamcinolone acetonide 40 mg/mL 1 mL inj 2 mL Niranjan Casiano, Primary Care Sports Medicine Orthopaedics [address] [address] This chart was completed in part utilizing [employer] Speech Voice Recognition Software. Grammatical errors, random [...] Casiano DO Sports Medicine Primary Care Orthopaedics [facility] [address] [facility] [place] [address] documented in this encounter Nursing Notes * Jana Henderson LPN - 07/18/2024 2:00 PM EST FUP B/L hip pain Pt c/o 6/10 pain today Pt is unaccompanied Mikayla Dove LPN documented in this encounter Plan of Treatment Upcoming Encounters Date Type Department Care Team (Late st Contact Info) Description 08/13/2024 12:40 PM EST Telemedicine Nutrition & Weight Management, [facility] 132 [facility] [place] [address] Arabella Dobbs PA-C 132 [facility] [place] [address] 08/13/2024 1:30 PM EST Telemedicine Nutrition & Weight Management, [facility] 132 [facility] [place] [address] [facility], Surgery Class Provider Christina 132 [facility] [place] [address] 08/21/2024 2:30 PM EST Telemedicine [facility], [address] [place] [address] Jeane Reyes PsyD [facility] [place] [address] 08/28/2024 3:10 PM EST Nutrition Services Nutrition & Weight Management, [facility] [address] [place] [address] Ketty Jean Baptiste RDN [address] [place] [address] 09/06/2024 9:00 AM EST Office Visit Cardiology, [facility] [address] [facility] [place] [address] Ty Cortez, DO [address] [place] [address] 10/16/2024 9:30 AM EDT Office Visit Orthopaedics [facility] [address] [facility] [place] [address] Niranjan Casiano, DO [address] [facility] [place] [address] Health Maintenance Due Date Last Done Comments [...] CARE US MAJOR JOINT INJECTION, ORTHO Routine 07/18/2024 1:58 PM EST Primary osteoarthritis of both hips documented in this encounter Results * POINT OF CARE US MAJOR JOINT INJECTION, ORTHO (07/18/2024 1:58 PM EST) Anatomical Region Laterality Modality Musculoskeletal Radiographic Jewels ging 07/18/2024 1:58 PM EST Narrative 07/18/2024 2:31 PM EST Patient Name: ELLIOTT SANCHEZ : 1975 (49y) Male Performing Provider: Niranjan Casiano (digitally signed Jul 18, 2024 14:31 EST) Attending: Niranjan Casiano (digitally signed Jul 18, 2024 14:31 EST) [Impression] : PROCEDURE NOTE: HIP JOINT INJECTION [...] Casiano DO Sports Medicine Primary Care Orthopaedics [facility] 132 [facility] [address] Procedure Note Niranjan Casiano DO - 07/18/2024 Patient Name: ELLIOTT SANCHEZ : 1975 (49y) Male Performing Provider: Niranjan Casiano (digitally signed Jul 18, 2024 14:31EST) Attending: Niranjan Casiano (digitally signed Jul 18, 2024 14:31 EST) [Impression] : PROCEDURE NOTE: HIP JOINT INJECTION [...] Casiano DO Sports Medicine Primary Care Orthopaedics [facility] [address] [facility] [place] [address] us Niranjan Casiano DO RAD ULTRASOUND Final [...] 2 mL 2 mL, Injection, ONCE, On Jacqueline 07/18/24 at 1500, For 1 dose, Lidocaine 1% 1mL Triamcinolone Acetonide 40 mg/mL 1 mL (Final concentration = 20 mg/mL) REFRIGERATE and SHAKE WELLIndications:Primary osteoarthritis of both hips Given 07/18/2024 3:15 PM EST 2 mL Hip Right lidocaine 1% 1 mL - triamcinolone acetonide 40 mg/mL 1 mL inj 2 mL 2 mL, Injection, ONCE, On Jacqueline 07/18/24 at 1500, For 1 dose, Lidocaine 1% 1mL Triamcinolone Acetonide 40 mg/mL 1 mL (Final concentration = 20 mg/mL) REFRIGERATE and SHAKE WELLIndications:Primary osteoarthritis of both hips Given 07/18/2024 3:15 PM EST 2 mL Hip Left documented in this encounter Care Teams Vessel Engineer Relationship Specialty Start Date End Date Aman Summers MD [address] [place], [place] [address] [address] PCP - General Internal Medicine 12/06/21 documented as of this encounter
--- OUTSIDE RECORDS SUMMARY | 2024-11-20 06:59 | External Medical Summary | Summary of Care ---
Author Name Unknown Organization [facility] Address [address] [place] [address] Phone [phone] Care Team Providers Care Supervisor Vat House Name Role Phone Aman Summers MD Primary Care Provi elliot Reason for Visit * Reason Onset Date Comments Referral 07/02/2024 Encounter Details Date Type Department Care Team (Late st Contact Info) Description 07/02/2024 New Patient Triage (SUPERINTENDENT W[employer]ER SYSTEMS USE ONLY) Cardiology, [facility] [address] [place] [address] Kely Gandara, SYNTHETIC RESIN OPERATOR [address] [place] [address] Referral Allergies Active Allergy Reactions Criticality Noted Date Comments Amoxicillin Rash 11/23/2014 Penicillins Rash 11/23/2014 documented as of this encounter (statuses as of 07/05/2024) Medications amLODIPine Besylate 10 MG Oral Tablet [...] Tablet. 03/07/20 23 Active Cholecalciferol 1.25 MG (19090 UT) Oral Capsule 1 Capsule once a week. 12/07/19 23 Active Methylcobalamin 1 MG Oral Tablet Chewable daily. 02/06/20 24 Active Ondansetron 4 MG Oral Tablet Disintegrating (Zofran) Take 1 Tablet by mouth. 02/24/20 23 Active Topiramate 25 MG Oral Tablet (topAMAX) Take 1 Tablet by mouth in the morning. 30 Tablet 5 05/28/20 24 Active Zepbound 7.5 MG/0.5ML Subcutaneous Solution Auto-injector ([employer]) Inject 7.5 mg under the skin once a week. 2 mL 2 06/24/20 24 Active Folic Acid 1 MG Oral TabletIndications: Folic acid deficiency Take 1 Tablet by mouth in the morning. 30 Tablet 3 07/02/20 24 Active documented as of this encounter (statuses as of 07/05/2024) Active Problems No known active problems documented as of this encounter (statuses as of 07/05/2024) Immunizations Name Administration Dates Next Due TDAP [...] as of this encounter Progress Notes * Juliann Scherer PA-C - 07/05/2024 6:21 PM EST Does patient need to be seen?: Yes Modality: Office visit Urgency: Within 30 days (routine) Discussed care plan with patient or proxy?: Yes myG Communicated with patient on Date (mm/lorelei/yrochelle): 07/02/2024 at Time ([facility]): [phone] 48 year old male referred by GI nutrition for preop evaluation for bariatric surgery. EKG, zio patch and echocardiogram for review on chart Scheduled 09/06/[address] Coretz Appointment is appropriate as scheduled Thank you Juliann Scherer PA-C Department of Cardiology, [facility] * Marley Sagastume LPN - 07/02/2024 9:55 AM EST New Patient Triage What is the diagnosis/reason for referral?: Morbid obesity due to excess calories (HCC) [E66.01] Enter order ID here: [id number] Specialty specific documentation: Cardiology Structural Heart Discussed care plan with patient or proxy?: Yes [email or web address] Communicated with patient on 07/02/24 at 9:56 AM INFO FROM CARDIAC REFERRAL Pre bariatric surgery evaluation, h/o atrial flutter APPOINTMENT INFO: 09/06/2024 09:00 AM Cardiology Ty Kumar DO PCP/REFERRING Past Medical History Past Medical History: Diagnosis Date DJD (degenerative joint disease) HTN (hypertension) LESVIA (obstructive sleep apnea) Social Demographics: Lives with . is supportive of weight loss goals. Shared responsibility with the cooking and does the grocery shopping. 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 Barriers To Learning: None Special Education Needs: None The patient is preparing for bariatric surgery: Considering RYGB procedure Food allergies: No EKG/ECHO/ZIO/CARDIAC TESTING 07/01/2024 3:07 PM - Interface, Roving Court Reporter Narrative & Impression REASON FOR STUDY: pre op;pre op CONCLUSIONS: Normal sinus rhythm with sinus arrhythmia Nonspecific intraventricular conduction delay Borderline ECG When compared with ECG of 01-Jan-2023 12:16, Sinus rhythm has replaced Atrial flutter Vent. rate has decreased by 54 bpm The axis Shifted right Nonspecific T wave abnormality, improved in Inferior leads Ventricular Rate: 64 Atrial Rate: 64 NM Interval: 178 QRS Duration: 122 QT/QTc: 394/406 ms P-R-T [place]: 52 : -13 : 41 degrees LABS Results for orders placed or performed in visit on 06/24/24 VITAMIN A (RETINOL) Result Value Ref Range Vitamin A (Retinol) 62 38 - 98 mcg/dL ZINC Result Value Ref Range Zinc 58 (L) 60 - 130 mcg/dL FOLIC ACID Result Value Ref Range Folic Acid 3.0 (L) >4.5 ng/mL PTH Result Value Ref Range PTH 66 (H) 15 - 65 pg/mL COPPER, SERUM OR PLASMA Result Value Ref Range Copper 114 70 - 175 mcg/dL IRON SCREEN, INCLUDING TIBC Result Value Ref Range Iron 27 (L) 45 - 176 ug/dL Iron Binding Capacity 254 250 - 425 ug/dL Transferrin Saturation Percent 11 (L) 15 - 55 % FERRITIN Result Value Ref Range Ferritin 152 30 - 400 ng/mL VITAMIN B1 (THIAMINE), BLOOD, LC/MS/MS Result Value Ref Range Vitamin B1 (Thiamine),B 162 78 - 185 nmol/L VITAMIN B12 Result Value Ref Range Vitamin B12 317 232 - 1,245 pg/mL INSULIN Result Value Ref Range Insulin 17 3 - 25 uU/mL COMPREHENSIVE METABOLIC PANEL Result Value Ref Range BUN 33 (H) 6 - 20 mg/dL CREATININE 1.2 0.6 - 1.2 mg/dL EGFR 77 >=60 mL/min SODIUM 139 135 - 146 mmol/L POTASSIUM 4.6 3.5 - 5.1 mmol/L CHLORIDE 104 98 - 107 mmol/L CO2 21 (L) 22 - 32 mmol/L ANION GAP 14 7 - 15 mmol/L GLUCOSE 95 70 - 120 mg/dL Albumin 4.3 3.8 - 5.0 g/dL AST 11 10 - 50 U/L Alkaline Phosphatase 75 35 - 130 U/L Bilirubin, Total 0.4 <=1.2 mg/dL CALCIUM 9.7 8.4 - 10.2 mg/dL Protein 7.6 6.0 - 8.3 g/dL ALT 16 10 - 50 U/L CBC Result Value Ref Range WBC 14.58 (H) 4.00 - 10.80 K/uL RBC 5.39 4.50 - 5.25 M/uL HGB 14.2 14.0 - 16.8 g/dL HCT 45.1 40.0 - 48.4 % MCV 83.7 82.0 - 99.5 fL MCH 26.3 27.0 - 34.0 pg MCHC 31.5 32.0 - 36.0 g/dL RDW 15.6 11.5 - 15.5 % PLT 282 140 - 400 K/uL MPV 10.4 6.6 - 11.1 fL HEMOGLOBIN A1C Result Value Ref Range Hemoglobin A1C 5.6 4.0 - 5.6 % Estimated Average Glucose 114 <126 mg/dL LIPID PANEL WITH DIRECT LDL IF TG IS HIGH Result Value Ref Range Triglycerides 156 <=174 mg/dL Cholesterol 181 <200 mg/dL HDL Cholesterol 44 >39 mg/dL Non-HDL Cholesterol 137 <=159 mg/dL LDL Cholesterol 106 <=129 mg/dL 25-HYDROXY VITAMIN D Result Value Ref Range 25-Hydroxy Vitamin D 32 >19 ng/mL MEDICATIONS Folic Acid 1 MG Oral Tablet Zepbound 7.5 MG/0.5ML Subcutaneous Solution Auto-injector (Tirzepatide-Weight Management) Topiramate 25 MG Oral Tablet (topAMAX) Aspirin 325 MG Oral Tablet Delayed Release Cholecalciferol 1.25 MG (24874 UT) Oral Capsule CPAP Methylcobalamin 1 MG Oral Tablet Chewable Ondansetron 4 MG Oral Tablet Disintegrating (Zofran) Budesonide-Formoterol Fumarate 160-4.5 MCG/ACT Inhalation Aerosol (Symbicort) Albuterol Sulfate HFA 108 (90 Base) MCG/ACT Inhalation Aerosol Solution Cyclobenzaprine HCl 10 MG Oral Tablet (Flexeril) Diclofenac Sodium 75 MG Oral Tablet Delayed Release (Voltaren) amLODIPine Besylate 10 MG Oral Tablet (Norvasc) Irbesartan 300 MG Oral Tablet (Avapro) documented in this encounter Plan of Treatment Upcoming Encounters Date Type Department Care Team (Late st Contact Info) Description 07/18/2024 2:30 PM EST Office Visit Orthopaedics [facility] [address] [place] [address] Niranjan Casiano DO [address] [place] [address] 08/13/2024 12:40 PM EST Telemedicine Nutrition & Weight Management, [facility] [address] [place] [address] Arabella Dobbs PA-C [address] [place] [address] 08/13/2024 1:30 PM EST Telemedicine Nutrition & Weight Management, [facility] 132 [facility] [place] [address] [facility], Surgery Class Provider [facility] [place] [address] 08/21/2024 2:30 PM EST Telemedicine [facility] [address] [facility] [place] [address] Jeane Reyes PsyD [address] [facility] [place] [address] 08/28/2024 3:10 PM EST Nutrition Services Nutrition & Weight Management, [facility] [address] [facility] [place] [address] Ketty Jean Baptiste RDN 132 [facility] [place] [address] 09/06/2024 9:00 AM EST Office Visit Cardiology, [facility] 132 [facility] [place] [address] Ty Cortez DO [facility] [place] [address] Health Maintenance Due Date Last Done Comments [...] filedocumented as of this encounter Care Teams Supervisor Vat House Relationship Specialty Start Date End Date Aman Summers MD [address] [facility] [place] [address] PCP - General Internal Medicine 12/06/21 documented as of this encounter
--- OUTSIDE RECORDS SUMMARY | 2024-11-20 06:59 | External Medical Summary | Summary of Care ---
Author Name Unknown Organization [facility] Address [address] [place] [address] Phone [phone] Care Team Providers Care Customs And Border Protection Inspector Name Role Phone Aman Summers MD Primary Care Provi elliot Reason for Referral * Precert (Diagnostic Medical) (Within 10 days (routine)) - Authorized Specialty Diagnoses / Procedures Referred By Contac t Referred To Contact Cardiac Studies Diagnoses Preoperative cardiovascular examination Typical atrial flutter (HCC) Essential hypertension with goal blood pressure less than 140/90 SOB (shortness of breath) Procedures ECHO, STRESS (DOBUTAMINE) W/CONTRAST Ty Cortez DO [address] [place] [address] Phone: tel: fax: Referral ID Status Reason Start Date Expiration Date V isits Requested Visits Authorized [id number] Authorized Precert 07/30/2024 08/23/[phone] Reason for Visit * Reason Comments Pre-op Clearance Bariatric surgery ev al. Seen by [facility] Cardiology prior. * Evaluate & Treat - Unlimited Visits (Within 10 days (routine)) - Pending Review Specialty Diagnoses / Procedures Referred By Contact Referred To Contact Cardiovascular Medicine / Cardiology Diagnoses Morbid obesity due to excess calories (HCC) Maya Moreau PA-C Referral ID Status Reason Start Date Expiration Date Visits Requested Visits Authorized [id number] Pending Review Specialty Services Required 06/24/[phone] Encounter Details Date Type Department Care Team (Latest Contact Info) Description 07/23/2024 2:00 PM EST Office Visit Cardiology, [facility] [address] [place] [address] Ty Cortez, [address] [place] [address] Preoperative cardiovascular examination*; Typical atrial flutter (HCC); Essential hypertension with goal blood pressure less than 140/90; SOB (shortness of breath) Allergies Active Allergy Reactions Criticality Noted Date Comments Amoxicillin Rash 11/23/2014 Penicillins Rash 11/23/2014 documented as of this encounter (statuses as of 07/23/2024) Medications amLODIPine Besylate 10 MG Oral Tablet [...] skin once a week. 2 mL 2 4 8:19 AM EST 06/24/20 24 Active Olmesartan Medoxomil 40 MG Oral Tablet (Benicar) Take 1 Tablet by mouth every evening. 05/27/20 24 Active Irbesartan 300 MG Oral Tablet (Avapro) Take 1 Tablet by mouth every evening. 024 Discontin ued(Medic ation/Dos e Changed) Cyclobenzaprine HCl 10 MG Oral Tablet (Flexeril) 1 Tablet as needed. 12/06/19 23 024 Discontin ued(Patie nt preferenc e/discont inuation) Cholecalciferol 1.25 MG (08359 UT) Oral Capsule 1 Capsule once a week. 12/07/19 23 024 Discontin ued(End of Procedure ) documented as of this encounter (statuses as of 07/23/2024) Active Problems No known active problems documented as of this encounter (statuses as of 07/23/2024) Immunizations Name Administration Dates Next Due TDAP (age 10 and older)(Boostrix) 02/05/2015 documented as of this encounter Social History Tobacco Use Types Packs/Day Years Used Date Smoking Tobacco: Never Smokeless Tobacco: Never Tobacco Cessation:Counseling Given: Not Answered Alcohol Use Standard Drinks/Week Comments No 0 [...] AM EDT documented as of this encounter Last Filed Vital Signs Vital Sign Reading Time Taken Comments Blood Pressure 155/98 07/23/2024 2:08 PM EST Pulse 72 07/23/2024 2:08 PM EST Temperature - - Respiratory Rate 16 07/23/2024 2:08 PM EST Oxygen Saturation - - Inhaled Oxygen Concentration - - Weight 199.1 kg (438 lb 14.4 oz) 07/23/2024 2:08 PM EST Height - - Body Mass Index 61.21 06/24/2024 8:53 AM EST documented in this encounter Progress Notes * Ty Cortez DO - 07/23/2024 2:14 PM EST Cardiology Consultation Reason for consult: Morbid obesity, pre bariatric surgery evaluation, history of atrial flutter. Referring provider: Maya Moreau PA-C History of Present Illness: 49-year-old male with a history of atrial flutter and rapid ventricularresponse presents for preoperative cardiovascular evaluation prior to bariatric surgery. Initially diagnosed with atrial flutter in December of 2022. Transesophageal echocardiogram and cardioversion performed at that time and discharged home with oral anticoagulation for 1 month. Reports URI symptoms, cough beginning 1 week ago. Recently prescribed oral prednisone by primary care. On day 4 of prednisone taper. Blood pressure elevated. Cough improving. Denies chest pain or heaviness. Notes chronic dyspnea on exertion and limited functional capacity due to hip pain. No orthopnea or PND. Chronic lower extremity edema reported. No palpitations, lightheadedness, dizziness, syncope, or near syncope. Denies personal history of coronary disease, congestive heart failure, or rheumatic fever as a child. ECG 07/01/2024: Normal sinus rhythm with sinus arrhythmia, nonspecific intraventricular conduction delay. Cardiac Studies: Transesophageal echocardiogram report January 03, 2023: LVEF is low normal Atrial septal aneurysm with small, hemodynamically insignificant PFO. Mild mitral regurgitation No thrombus in the left atrial appendage Past Medical History: Typical atrial flutter 12/2022 HTN PFO Morbid obesity LESVIA on CPAP Past Surgical History: Procedure Laterality Date REMOVAL OF TONSILS, UNDER AGE 11 TYMPANOSTOMY TUBES x 1 as a child Family History: denies FH of premature CAD No family status information on file. 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 Social History Socioeconomic History Marital status: Spouse name: Not on file Number of children: Not on file Years of education: Not on file Highest education level: Not on file Occupational History Not on file Tobacco Use Smoking status: Never Smokeless tobacco: Never Vaping Use Vaping status: Never Used Substance and Sexual Activity Alcohol use: No Drug use: No Sexual activity: Yes Other Topics Concern Not on file Social History Narrative Not on file Social Needs Financial Resource Strain: Low Risk (07/02/2024) Financial Resource Strain Do you have any trouble paying for your medications, or do you think you might in the future? (Adult - for ages 18 years and over): No Does your family have trouble paying for medicine? (Household - for ages 0-17 years): Not on file Food Insecurity: No Food Insecurity (07/02/2024) Food Insecurity Do you need food for this week? (Adult - for ages 18 years and over): No Are you able to get enough food for your family? (Household - for ages 0-17 years): Not on file Does your family need food this week? (Household - for ages 0-17 years): Not on file Do you always have enough food for your family? (Household - for ages 0-17 years): Not on file Transportation Needs: No Transportation Needs (07/02/2024) Transportation Needs Do you have trouble getting a ride to medical visits or work? (Adult - for ages 18 years and over):Not on file Does your family have a hard time getting a ride to doctors’ visits? (Household - for ages 0-17 years): Not on file Has lack of transportation kept you from medical appointments, meetings, work, or from getting things needed for daily living? Check all that apply. (Adult - for ages 18 years and over): No Do you (or your family) have trouble finding or paying for a ride (transportation)? (Household - for ages 0-17 years): Not on file Social Connections: Socially Integrated (07/02/2024) Social Connections How often do you feel lonely or isolated from those around you? (Adult - for ages 18 years and over): Never Housing Stability: Low Risk (07/02/2024) Housing Stability Do you currently live in a jail or have no steady place to sleep at night? (Adult - for ages 18 years and over): No Do you think you are at risk of becoming homeless? (Adult - for ages 18 years and over): Not on file Does your family worry about paying for your home or becoming homeless? (Household - for ages 0-17 years): Not on file Are you homeless or worried that you might be in the future? (Adult - for ages 18 years and over): No Are you (or your family) homeless or worried that you might be in the future? (Household - for ages0-17 years): Not on file Social History Social History Narrative Not on file ROS: All others negative other than those noted in the HPI. Review of patient's allergies indicates: Allergen Reactions Amoxicillin Rash Penicillins Rash Current Outpatient Medications Medication Sig Dispense Refill [...] the morning and 2 Puffs before bedtime. Aspirin 325 MG Oral Tablet Delayed Release [...] skin once a week. 2 mL 2 Olmesartan Medoxomil 40 MG Oral Tablet (Benicar) Take 1 Tablet by mouth every evening. CPAP (Patient not taking: Reported on 07/23/2024) No current facility-administered medications for this visit. OBJECTIVE/PHYSICAL EXAMINATION: BP 155/98 (BP Site: Right Arm, BP Position: Sitting, BP Cuff Size: Large) | Pulse 72 | Resp 16 | Wt(!) 199.1 kg (438 lb 14.4 oz) | BMI 61.21 kg/m² | BSA 3.16 m² General: NAD, AAO x3, obese. HEENT: Normocephalic. Atraumatic. Conjunctiva pink, no scleral icterus. No carotid bruits, the carotid upstrokes are brisk. No JVD. No HJR Heart: Regular normal S-1 and S-2 no S-3 or S-4 gallop. No murmurs or rubs appreciated. PMI is not displaced. No RV heave. Lungs: Clear bilateral without rales , rhonchi, or wheeze. Abdomen: Normal bowel sounds. Soft. Nontender. Nomasses or organomegaly. No abdominal bruits. Extremities:1+ bilateral ankle and pretibial edema. Pulses: radial=2/4. Neuro: No focal deficits. IMPRESSION: 1. Preoperative cardiovascular evaluation prior to bariatric surgery 2. Paroxysmal atrial flutter 12/2022 s/p ANTOLIN guided DCCV without recurrence 3. Hypertension - elevated BP on prednisone tx 4. URI/ bronchitis - resolving with oral antibiotic therapy and corticosteroid 5. Morbid obesity with LESVIA on CPAP 6. Limited mobility secondary to chronic hip discomfort RECOMMENDATIONS/PLAN: Echo, stress (dobutamine) w/contrast 49-year-old male considered moderate perioperative risk with limited functional capacity due to morbid obesity and hip discomfort. Recommend dobutamine stress ECHO for further risk stratification prior to bariatric surgery. Natural history and pathophysiology of paroxysmal atrial flutter reviewed. Previously evaluated by electrophysiology recommended conservative management. Referral for EPS/ablation if patient experiences recurrent episodes of atrial flutter. Blood pressure elevated today after initiating treatment with oral corticosteroid therapy. Continueto monitor at this time. Consider addition of daily diuretic therapy if blood pressure remains elevated after he has completed his course of treatment. Continue olmesartan, amlodipine, and low-dose aspirin as ordered. Sodium restriction advised. All questions answered to patient's satisfaction. Follow Up: Return in about 6 months (around 01/20/2025). Ty Crotez DO, [facility] Associate Cardiology - [facility] documented in this encounter Nursing Notes * Irene Owens CMA - 07/23/2024 2:00 PM EST Chief Complaint Patient presents with Pre-op Clearance Bariatric surgery eval. Seen by [facility] Cardiology prior. Examination Room: 11 Name: Elliott Muller Date of : (1975). Reason for Visit: Pre-op clearance Interim Hospitalization(s): none Problems/Concerns: Denies cardiac issues at this time. Chest Pain/SOB: Denies CP or unusual SOB. [facility] Discussed: Not applicable [facility] is a way you can talk to your provider online through e-mail. Would you like to sign up? I can activate it for you? ALREADY ACTIVE Patient was instructed to not get up on the exam table until directed and assisted by their provider; patient is to remain seated in the chair/ wheelchair/ exam table for fall prevention and safety reasons. Patient is aware to have assistance to step down off exam table with personnel. Patient voiced full comprehension of instructions. documented in this encounter Plan of Treatment Upcoming Encounters Date Type Department Care Team (Late st Contact Info) Description 07/31/2024 10:35 AM EST Imaging Cardiac Studies, [facility] [address] [facility] [place] [address] 08/13/2024 12:40 PM EST Telemedicine Nutrition & Weight Management, [facility] [address] [facility] [place] [address] Arabella Dobbs PA-C [address] [place] [address] 08/13/2024 1:30 PM EST Telemedicine Nutrition & Weight Management, [facility] [address] [facility] [place] [address] [facility], Surgery Class Provider Christina [address] [facility] [place] [address] 08/21/2024 2:30 PM EST Telemedicine [facility] [place] [address] [place] [address] Jeane Reyes PsyD [address] [place] [address] 08/28/2024 3:10 PM EST Nutrition Services Nutrition & Weight Management, [facility] [address] [facility] [place] [address] Ketty Jean Baptiste, TIFFANIEN [address] [facility] [place] [address] 10/16/2024 9:30 AM EDT Office Visit Orthopaedics [facility] [address] [facility] [place] [address] Niranjan Casiano, [address] [facility] [place] [address] 01/23/2025 3:00 PM EDT Office Visit Cardiology, [facility] [address] [facility] [place] [address] Lisette Mcdaniel PA-C [facility] [place] [address] Scheduled Orders Name Type Priority Associated Diagnoses Orde r Schedule ECHO, STRESS (DOBUTAMINE) W/CONTRAST Echocardiology Routine Preoperative cardiovascular examination Typical atrial flutter (HCC) Essential hypertension with goal blood pressure less than 140/90 SOB (shortness of breath) Expected: 07/30/2024, Expires: 08/23/2025 Health Maintenance Due Date Last Done Comments [...] as of this encounter Visit Diagnoses Diagnosis Preoperative cardiovascular examination- Primary Pre-operative cardiovascular examination Typical atrial flutter (HCC) Atrial flutter Essential hypertension with goal blood pressure less than 140/90 SOB (shortness of breath) Shortness of breath documented in this encounter Care Teams Customs And Border Protection Inspector Relationship Specialty Start Date End Date Aman Summers MD [address] [facility] [place] [address] PCP - General Internal Medicine 12/06/21 documented as of this encounter"
--- OUTSIDE RECORDS SUMMARY | 2024-11-20 06:59 | External Medical Summary ---
Author Name Unknown Address Unknown Organization : Laboratory Report Ordering Provider Test Date Status DONALDO PIEDRA 06/24/2024 11:22:42 Final Observation Date Value Abnormality Reference (Units ) Status Copper 06/24/2024 11:22:42 114 70-175 (mc g/dL) Final This test was developed and its analytical performance
characteristics have been determined by [email or web address]
[place]. It has
not been cleared or approved by the U.S. Food and Drug
Administration. This assay has been validated pursuant
to the CLIA regulations and is used for clinical
purposes.

Test Performed at:
[employer] [facility]
[address] [facility]
[place] [address]
Brady Rodriguez M.D., Ph.D.,Director of Laboratories Performing Location
--- OUTSIDE RECORDS SUMMARY | 2024-11-20 06:59 | External Medical Summary ---
Author Name Unknown Address Unknown Organization [id number]:[facility] [place] [address] [place] [address] Laboratory Report Ordering Provider Test Date Status DONALDO PIEDRA 06/24/2024 11:22:42 Final Observation Date Value Abnormality Reference (Units ) Status BUN 06/24/2024 11:22:42 33 Above high normal 6-20 (mg/dL) Final Creatinine 06/24/2024 11:22:42 1.2 0.6-1.2 (mg/dL) Final Glomerular filtration rate/1.73 sq M.predicted [Volume Rate/Area] in Serum, Plasma or Blood by Creatinine-based formula (CKD-EPI) 06/24/2024 11:22:42 77 >=60 (mL/min) Final eGFR is calculated based on the CKD-EPI 2020 equation. Sodium 06/24/2024 11:22:42 139 135-146 (m mol/L) Final Potassium 06/24/2024 11:22:42 4.6 3.5-5.1 (m mol/L) Final Cl 06/24/2024 11:22:42 104 98-107 (mm ol/L) Final CO2 06/24/2024 11:22:42 21 Below low normal 22- 32 (mmol/L) Final Anion gap 06/24/2024 11:22:42 14 7-15 (mmol /L) Final Glucose 06/24/2024 11:22:42 95 70-120 (mg /dL) Final Albumin 06/24/2024 11:22:42 4.3 3.8-5.0 (g /dL) Final AST (Aspartate aminotransferase) 06/24/2024 11:22:42 11 10-50 (U/L) Fin al Alk Phos 06/24/2024 11:22:42 75 35-130 (U/ L) Final Bilirubin, Total 06/24/2024 11:22:42 0.4 <=1 .2 (mg/dL) Final Calcium 06/24/2024 11:22:42 9.7 8.4-10.2 ( mg/dL) Final Protein 06/24/2024 11:22:42 7.6 6.0-8.3 (g /dL) Final ALT (Alanine aminotransferase) 06/24/2024 11:22:42 16 10-50 (U/L) Michael fox Performing Location [facility] [place] [address] [facility] [address]
--- OUTSIDE RECORDS SUMMARY | 2024-11-20 06:59 | External Medical Summary ---
Author Name Unknown Address Unknown Organization [id number]:[facility] - [address] [place] [address] Laboratory Report Ordering Provider Test Date Status DONALDO PIEDRA 06/24/2024 11:22:42 Final Observation Date Value Abnormality Reference (Units ) Status Vitamin B12 06/24/2024 11:22:42 [phone] (pg/mL) Final Performing Location [facility] - [address] [place] [address]
--- OUTSIDE RECORDS SUMMARY | 2024-11-20 06:59 | External Medical Summary | Summary of Care ---
Author Name Unknown Organization [facility] Address [address] [place] [address] Phone [phone] Care Team Providers Care Automatic Lathe Setter Name Role Phone Aman Summers MD Primary Care Provi elliot Reason for Visit * Reason Comments Follow Up B/L hip Pain Encounter Details Date Type Department Care Team (Latest Contact Info) Description 07/18/2024 2:30 PM EST Office Visit Orthopaedics [facility] [address] [place] [address] Niranjan Casiano, [address] [facility] [place] [address] Primary osteoarthritis of both hips* Allergies Active [...] Tablet. 03/07/20 23 Active Cholecalciferol 1.25 MG (44169 UT) Oral Capsule 1 Capsule once a [...] both hips 2 mL IJ ONCE 07/18/2024 07/19/20 24 Active lidocaine 1% 1 mL - triamcinolone acetonide 40 mg/mL 1 mL inj 2 mLIndications:Primary osteoarthritis of both hips 2 mL IJ ONCE 07/18/2024 07/19/20 24 Active documented as of this encounter [...] - 07/18/2024 2:30 PM EST Elliott Sanchez [id number] Elliott Sanchez is a 49 year old male who presents to [facility] Sports Medicine for bilateral intra-articular hip [...] Delayed Release 1 Tablet. Cholecalciferol 1.25 MG (26530 UT) Oral Capsule 1 Capsule once a [...] Niranjan Casiano, Primary Care Sports Medicine Orthopaedics [address] [address] This chart was completed in part utilizing [employer] Voice Recognition Software. Grammatical errors, random [...] Casiano DO Sports Medicine Primary Care Orthopaedics [facility] [address] [facility] [place] [address] documented in this encounter Nursing Notes * Jana Henderson LPN - 07/18/2024 2:00 PM EST FUP B/L hip pain Pt c/o 6/10 pain today Pt is unaccompanied Mkiayla Dove LPN documented in this encounter Plan of Treatment Upcoming Encounters Date Type Department Care Team (Late st Contact Info) Description 07/18/2024 3:00 PM EST Imaging Radiology [place] [address] [place] [address] Arrived 08/13/2024 12:40 PM EST Telemedicine Nutrition & Weight Management, [facility] [place] [address] Arabella Dobbs PA-C [address] [facility] [place] [address] 08/13/2024 1:30 PM EST Telemedicine Nutrition & Weight Management, [facility] [address] [facility] [place] [address] [facility], Surgery Class Provider Christina [address] [facility] [place] [address] 08/21/2024 2:30 PM EST Telemedicine Psychology, [place] [address] [place] [address] Jeane Reyes, [place] [address] [place] [address] 08/28/2024 3:10 PM EST Nutrition Services Nutrition & Weight Management, [facility] [address] [place] [address] Ketty Jean Baptiste RDN [address] [place] [address] 09/06/2024 9:00 AM EST Office Visit Cardiology, [facility] [address] [facility] [place] [address] Ty Cortez, DO [address] [facility] [place] [address] 10/16/2024 9:30 AM EDT Office Visit Orthopaedics [facility] [address] [facility] [place] [address] Niranjan Casiano, DO [address] [facility] [place] [address] Health Maintenance Due Date Last Done Comments [...] Casiano DO Sports Medicine Primary Care Orthopaedics [facility] [address] [facility] [address] Procedure Note Niranjan Casiano DO - 07/18/2024 [...] Casiano DO Sports Medicine Primary Care Orthopaedics [facility] [address] [facility] [address] [place] Niranjan Casiano DO RAD ULTRASOUND Final Result documented in this encounter Visit Diagnoses Diagnosis Primary osteoarthritis of both hips- Primary Primary localized osteoarthrosis, pelvic region and thigh documented in this encounter Care Teams Automatic Lathe Setter Relationship Specialty Start Date End Date Aman Summers MD [address] [place] [address] [place] [address] PCP - General Internal Medicine 12/06/21 documented as of this encounter
--- OUTSIDE RECORDS SUMMARY | 2024-11-20 06:59 | External Medical Summary | Summary of Care ---
Author Name Unknown Organization [facility] Address [address] [facility] [place] [address] Phone [phone] Care Team Providers Care Buffer Inflated Pad Name Role Phone Aman Summers MD Primary Care Provi elliot Reason for Visit * Reason Onset Date Comments Medication Refill 07/15/2024 Encounter Details Date Type Department Care Team (Late st Contact Info) Description 07/12/2024 [address]ill [address] [place] [phone] Nina Garcia, [facility] [address] [place] [address] Allergies Active Allergy Reactions Criticality Noted Date Comments Amoxicillin Rash 11/23/2014 Penicillins Rash 11/23/2014 documented as of this encounter (statuses as of 07/15/2024) Medications amLODIPine Besylate 10 MG Oral Tablet [...] Tablet. 03/07/20 23 Active Cholecalciferol 1.25 MG (61211 UT) Oral Capsule 1 Capsule once a [...] 4 8:19 AM EST 06/24/20 24 Active documented as of this encounter (statuses as of 07/15/2024) Active Problems No known active problems documented as of this encounter (statuses as of 07/15/2024) Immunizations Name Administration Dates Next Due TDAP [...] encounter Miscellaneous Notes * Telephone Encounter - Davie Pacheco CRNP - 07/15/2024 9:20 AM ESTRefused Prescriptions: Disp Refills Zepbound 7.5 MG/0.5ML Subcutaneous Solutio*2 mL 2 Sig: Inject 7.5 mg under the skin once a week. Refused By: DAVIE PACHECO Reason for Refusal: Duplicate Request * Telephone Encounter - Nina Garcia [facility] - 07/12/2024 2:50 PM EST Patient previously established with Maya Moreau PA-C. Upcoming visit scheduled with Arabella Dobbs. Pending script. Please approve if agreeable to continuing therapy. Nina Garcia [facility], PharmD, BCACP Ambulatory Clinical Pharmacist 07/12/24,2:50 PM documented in this encounter Plan of Treatment Upcoming Encounters Date Type Department Care Team (Late st Contact Info) Description 07/18/2024 2:30 PM EST Office Visit Orthopaedics [facility] [address] [place] [address] Niranjan Casiano DO [address] [place] [address] 08/13/2024 12:40 PM EST Telemedicine Nutrition & Weight Management, [facility] [address] [place] [address] Arabella Dobbs PA-C [address] [place] [address] 08/13/2024 1:30 PM EST Telemedicine Nutrition & Weight Management, [facility] [address] [place] [address] [place], Surgery Class Provider Christina [address] [place] [address] 08/21/2024 2:30 PM EST Telemedicine [facility] [address] [place] [address] Jeane Reyes PsyD [address] [place] [address] 08/28/2024 3:10 PM EST Nutrition Services Nutrition & Weight Management, [facility] [address] [place] [address] Ketty Jean Baptiste RDN [address] [place] [address] 09/06/2024 9:00 AM EST Office Visit Cardiology, [facility] [address] [place] [address] Ty Cortez DO [address] [place] [address] Health Maintenance Due Date Last Done Comments [...] filedocumented as of this encounter Care Teams Buffer Inflated Pad Relationship Specialty Start Date End Date Aman Summers MD [address] [facility] [place] [address] PCP - General Internal Medicine 12/06/21 documented as of this encounter
--- OUTSIDE RECORDS SUMMARY | 2024-11-20 06:59 | External Medical Summary | Summary of Care ---
Author Name Unknown Organization [facility] Address [address] [facility] [place] [address] Phone [phone] Care Team Providers Care Monomer Recovery Operator Name Role Phone Aman Summers MD Primary Care Provi elliot Reason for Visit * Reason Onset Date Comments Encounter Created in Error 08/06/2024 Encounter Details Date Type Department Care Team (Late st Contact Info) Description 08/06/2024 Orders Only Endocrinology [address] [address] [place] [phone] Maya Moreau PA-C Encounter created in error Allergies Active Allergy Reactions Criticality Noted Date Comments Amoxicillin Rash 11/23/2014 Penicillins Rash 11/23/2014 documented as of this encounter (statuses as of 08/06/2024) Medications amLODIPine Besylate 10 MG Oral Tablet [...] and 2 Puffs before bedtime. Active CPAP 024 Active Aspirin 325 MG Oral Tablet Delayed Release Take 1 Tablet by mouth in the morning. Active Methylcobalamin 1 MG Oral Tablet Chewable daily. 024 Active Ondansetron 4 MG Oral Tablet Disintegrating [...] the morning. 30 Tablet 3 024 Active Zepbound 7.5 MG/0.5ML Subcutaneous Solution Auto-injector (Tirzepatide-Weig ht Management) Inject 7.5 mg (1 pen) under the skin once a week. 2 mL 2 07/15/20 24 8:19 AM EST Active Olmesartan Medoxomil 40 MG Oral Tablet (Benicar) Take 1 Tablet by mouth every evening. 024 Active Zepbound 7.5 MG/0.5ML Subcutaneous Solution Auto-injector (Tirzepatide-Weig ht Management) Inject 7.5 mg under the skin once a week. 2 mL 2 024 2024 Discontinued documented as of this encounter (statuses as of 08/06/2024) Active Problems No known active problems documented as of this encounter (statuses as of 08/06/2024) Immunizations Name Administration Dates Next Due TDAP [...] as of this encounter Progress Notes * Francisca Wheat RPh - 08/06/2024 4:26 PM EST This encounter was created in error. 08/06/2024, 4:27 PM, Francisca Wheat RPh documented in this encounter Plan of Treatment Upcoming Encounters Date Type Department Care Team (Late st Contact Info) Description 08/13/2024 10:35 AM EST Imaging Cardiac Studies, [facility] [address] [facility] [place] [address] 08/13/2024 12:40 PM EST Telemedicine Nutrition & Weight Management, [facility] [address] [place] [address] Arabella Dobbs PA-C [address] [place] [address] 08/13/2024 1:30 PM EST Telemedicine Nutrition & Weight Management, [facility] [address] [facility] [place] [address] [facility], Surgery Class Provider [facility] [place] [address] 08/21/2024 2:30 PM EST Telemedicine [facility] [place] [address] [place] [address] Jeane Reyes PsyD [address] [place] [address] 08/28/2024 3:10 PM EST Nutrition Services Nutrition & Weight Management, [facility] [address] [place] [address] Ketty Jean Baptiste RDN [address] [place] [address] 10/16/2024 9:30 AM EDT Office Visit Orthopaedics [facility] [address] [place] [phone] Niranjan Casiano DO [address] [place] [address] 01/23/2025 3:00 PM EDT Office Visit Cardiology, [facility] [address] [place] [address] Lisette Mcdaniel PA-C [address] [place] [address] Health Maintenance Due Date Last Done Comments [...] as of this encounter Visit Diagnoses Diagnosis Encounter Created In Error- Primary documented in this encounter Care Teams Monomer Recovery Operator Relationship Specialty Start Date End Date Aman Summers MD [address] [place] [address] PCP - General Internal Medicine 12/06/21 documented as of this encounter
--- OUTSIDE RECORDS SUMMARY | 2024-11-20 06:59 | External Medical Summary | Summary of Care ---
Author Name Unknown Organization [facility] Address [address] [facility] [place] [address] Phone [phone] Care Team Providers Care Software Quality Assurance Analyst Name Role Phone Aman Summers MD Primary Care Provi elliot Reason for Visit * Reason Onset Date Comments Medication Refill 08/06/2024 Encounter Details Date Type Department Care Team (Late st Contact Info) Description 08/06/2024 Refill [address]ocr[address] [address] [place] [phone] Arabella Dobbs PA-C [address] [place] [address] Allergies Active Allergy Reactions Criticality Noted Date Comments Amoxicillin Rash 11/23/2014 Penicillins Rash 11/23/2014 documented as of this encounter (statuses as of 08/07/2024) Medications amLODIPine Besylate 10 MG Oral Tablet [...] a week. 2 mL 08/07/19 25 Active Zepbound 7.5 MG/0.5ML Subcutaneous Solution Auto-injector (Tirzepatide-Weigh t Management) Inject 7.5 mg (1 pen) under the skin once a week. 2 mL 2 4 8:19 AM EST 06/24/20 24 025 Discontin ued(Refil l) documented as of this encounter (statuses as of 08/07/2024) Active Problems No known active problems documented as of this encounter (statuses as of 08/07/2024) Immunizations Name Administration Dates Next Due TDAP [...] Telephone Encounter - Arabella Dobbs PA-C - 08/07/2024 8:15 AM EST Signed Prescriptions: Disp Refills Zepbound 7.5 MG/0.5ML Subcutaneous Solutio*2 mL 0 Sig: Inject 7.5 mg under the skin once a week. Authorizing Provider: ARABELLA DOBBS * Telephone Encounter - Francisca Wheat RPh - 08/06/2024 4:28 PM EST Patient previously established with Maya Moreau PA-C. Upcoming visit scheduled with Arabella Dobbs PA-C. Pending script. Please approve if agreeable to continuing therapy. Francisca Wheat RPh, PharmD, BCACP Ambulatory Clinical Pharmacist [facility] Endocrinology 08/06/24,4:28 PM documented in this encounter Plan of Treatment Upcoming Encounters Date Type Department Care Team (Late st Contact Info) Description 08/13/2024 10:35 AM EST Imaging Cardiac Studies, [facility] [address] [facility] [place] [address] 08/13/2024 12:40 PM EST Telemedicine Nutrition & Weight Management, [facility] [address] [facility] [place] [address] Arabella Dobbs PA-C [address] [place] [address] 08/13/2024 1:30 PM EST Telemedicine Nutrition & Weight Management, [facility] [place] [address] [facility], Surgery Class Provider Christina [address] [facility] [place] [address] 08/21/2024 2:30 PM EST Telemedicine [facility] [address] [place] [address] Jeane Reyes PsyD [address] [place] [address] 08/28/2024 3:10 PM EST Nutrition Services Nutrition & Weight Management, [facility] [address] [place] [address] Ketty Jean Baptiste RDN [address] [place] [address] 10/16/2024 9:30 AM EDT Office Visit Orthopaedics [facility] [address] [place] [phone] Niranjan Casiano DO [address] [place] [address] 01/23/2025 3:00 PM EDT Office Visit Cardiology, [facility] [address] [place] [address] Lisette Mcdaniel PA-C [address] [place] [address] Health Maintenance Due Date Last Done Comments [...] filedocumented as of this encounter Care Teams Software Quality Assurance Analyst Relationship Specialty Start Date End Date Aman Summers MD [address] [place] [address] [place] [address] PCP - General Internal Medicine 12/06/21 documented as of this encounter
--- OUTSIDE RECORDS SUMMARY | 2024-11-20 06:59 | External Medical Summary ---
Author Name Unknown Address Unknown Organization [id number]:LABORATORY [facility] - [address] [place] [address] Laboratory Report Ordering Provider Test Date Status DONALDO PIEDRA 06/24/2024 11:22:42 Final Observation Date Value Abnormality Reference (Units ) Status Ferritin 06/24/2024 11:22:42 152 30-400 (ng /mL) Final Performing Location [facility] - [address] [place] [address]
--- OUTSIDE RECORDS SUMMARY | 2024-11-20 06:59 | External Medical Summary ---
Author Name Unknown Address Unknown Organization K01:LABORATORY [facility] [place] - [address] [facility] [id number] Laboratory Report Ordering Provider Test Date Status TADEODONALDO MARINA 06/24/2024 11:22:42 Final Observation Date Value Abnormality Reference (Units ) Status Triglyceride 06/24/2024 11:22:42 156 <=174 ( mg/dL) Final Triglyceride Reference Range s (mg/dL):
<150 Acceptable
150-174 Borderline high
175-499 High
>=500 Very high Cholesterol 06/24/2024 11:22:42 181 <200 (mg /dL) Final Total Cholesterol Reference Ranges (mg/dL):
<200 Desirable
200-239 Borderline high
>=240 High HDL 06/24/2024 11:22:42 44 >39 (mg/dL ) Final HDL Cholesterol Reference Ra nges (mg/dL):
>=60 High (Desirable)
<50 Low (Undesirable) For Females
<40 Low (Undesirable) For Males NON-HDL CHOLESTEROL 06/24/2024 11:22:42 137 <=159 (mg/dL) Final Non-HDL Cholesterol Referenc e Range (mg/dL):
<100 Target level for high risk ASCVD patient
<130 Optimal for general population
130-159 Near optimal for general population
160-189 Borderline High
190-219 High
>=220 Very High LDL, (calculated) 06/24/2024 11:22:42 106 <= 129 (mg/dL) Final LDL Cholesterol Reference Ra nges (mg/dL):
<70 Target level for high risk ASCVD patient
<100 Optimal for general population
100-129 Near optimal for general population
130-159 Borderline high
160-189 High
>=190 Very high Performing Location LABORATORY [facility] [place] - [address] [place] [address]
--- OUTSIDE RECORDS SUMMARY | 2024-11-20 06:59 | External Medical Summary | Summary of Care ---
Author Name Unknown Organization [facility] Address [address] [place] [address] Phone [phone] Care Team Providers Care District Traffic Chief Name Role Phone Aman Summers MD Primary Care Provi [facility] Reason for Referral * Evaluate & Treat - Unlimited Visits (Within 10 days (routine)) - Pending Review Specialty Diagnoses / Procedures Referred By Contact Referred To Contact Cardiovascular Medicine / Cardiology Diagnoses Morbid obesity due to excess calories (HCC) Maya Moreau PA-C [address] [place] [address] Phone: tel: fax: Referral ID Status Reason Start Date Expiration Date Visits Requested Visits Authorized [id number] Pending Review Specialty Services Required 06/24/[phone] Question Answer Referral Priority Within 10 days (routine) To which of the following clinics are you referring your patient? General Cardiology Clinic Where should this appointment be scheduled? External Comments Pre bariatric surgery evaluation, h/o atrial flutter * Evaluate & Treat - Unlimited Visits (Within 10 days (routine)) - Pending Review Specialty Diagnoses / Procedures Referred By Dar rivas Referred To Contact Psychology Diagnoses Morbid obesity due to excess calories (HCC) Maya Moreau PA-C [address] [place] [address] Phone: tel: fax: Referral ID Status Reason Start Date Expiration Date Visits Requested Visits Authorized [id number] Pending Review Specialty Services Required 06/24/[phone] Question Answer Referral Priority Within 10 days (routine) Where should this appointment be scheduled? [facility] Is this referral for medication management? No Reason for Referral: Weight/Eating/Bariatric Surgery Specific Condition? Pre-Surgical Bariatric Surgery Eval (Including Early Eval) Comments Bariatric surgery evaluation Reason for Visit * Reason Comments NEW PATIENT BME Encounter Details Date Type Department Care Team (Late st Contact Info) Description 06/24/2024 9:00 AM EST Office Visit Nutrition & Weight Management, [facility] [address] [place] [address] [place] Eval [facility] [address] [place] [address] Maya Moreau PA-C [address] [place] [address] Ketty Jean Baptiste RDN [address] [place] [address] Morbid obesity due to excess calories (HCC)*; LESVIA (obstructive sleep apnea); Atrial flutter, unspecified type (HCC); HTN, goal below 140/90 Allergies Active Allergy Reactions Criticality Noted Date [...] and 1 Tablet before bedtime. 023 Active Cyclobenzaprine HCl 10 MG Oral Tablet (Flexeril) 1 Tablet as needed. Active Albuterol Sulfate HFA 108 (90 Base) MCG/ACT Inhalation Aerosol Solution inhale 2 puffs by mouth and INTO THE LUNGS every 6 hours if neede... (REFER TO PRESCRIPTION NOTES). Active Budesonide-Formot cristina Fumarate 160-4.5 MCG/ACT Inhalation Aerosol (Symbicort) Inhale 2 Puffs by mouth in the morning and 2 Puffs before bedtime. Active CPAP Active Aspirin 325 MG Oral Tablet Delayed Release 1 Tablet. Active Cholecalciferol 1.25 MG (82186 UT) Oral Capsule 1 Capsule once a week. Active Methylcobalamin 1 MG Oral Tablet Chewable daily. Active Ondansetron 4 MG Oral Tablet Disintegrating (Zofran) Take 1 Tablet by mouth. Active Topiramate 25 MG Oral Tablet (topAMAX) Take 1 Tablet by mouth in the morning. 30 Tablet 5 Active Zepbound 7.5 MG/0.5ML Subcutaneous Solution Auto-injector (Tirzepatide-Yemeksepetig [employer]) Inject 7.5 mg under the skin once a week. 2 mL 2 Active Fluticasone Furoate-Vilantero l 200-25 MCG/INH Inhalation Aerosol Powder Breath Activated (BREO ellipta) Inhale 1 Puff by mouth. 2023 Discontinued(M edication List Clean Up) Sodium Sulfate Powder 022 2023 Discontinued(M edication List Clean Up) Metoprolol Succinate 25 MG Oral Capsule ER 24 Hour Sprinkle Take by mouth. 2023 Discontinued(P atient preference/dis continuation) Zepbound 5 MG/0.5ML Subcutaneous Solution Auto-injector (Tirzepatide-Yemeksepetig [employer])Indica tions:Morbid obesity due to excess calories (HCC) Inject 5 mg (1 pen) under the skin once a week. 2 mL 5 06/18/20 24 3:26 PM EST 024 2023 Discontinued documented as of this encounter (statuses [...] Sign Reading Time Taken Comments Blood Pressure 128/88 06/24/2024 8:53 AM EST Pulse 72 06/24/2024 8:53 AM EST Temperature 36.7 °C (98.1 °F) 06/24/2024 8:53 AM ES T Respiratory Rate 18 06/24/2024 8:53 AM EST Oxygen Saturation - - Inhaled Oxygen Concentration - - Weight 201.1 kg (443 lb 4.8 oz) 06/24/2024 8:53 AM EST Height 180.3 cm (5' 11") 06/24/2024 8:53 AM EST Body Mass Index 61.83 06/24/2024 8:53 AM EST documented in this encounter Patient Instructions * Patient Instructions* Ketty Jean Baptiste RDN - 06/24/2024 10:49 AM EST Needs to work on to get the green from RD Need to follow at least 90% of the time Chewing Well No eating and drinking following No drinking large quantities at once/sipping Meal times 30 min documented in this encounter Progress Notes * Ketty Jean Baptiste RDN - 06/24/2024 9:09 AM EST Bariatric Surgery Evaluation Nutrition Assessment [facility] Name: Elliott Muller Location: NUTRITION & WEIGHT MANAGEMENT, [facility] Date: 06/24/2024 Time: 9:09 AM Patient was seen [id number] in the clinic. Patient identified by name and . NUTRITION ASSESSMENT: Client History: 48 year old male PMH: Past Medical History: Diagnosis Date DJD (degenerative joint disease) HTN (hypertension) LESVIA (obstructive sleep apnea) Social Demographics: Lives with . is supportive of weight loss goals. Shared responsibility with the cooking and does the grocery shopping. 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 Barriers To Learning: None Special Education Needs: None The patient is preparing for bariatric surgery: Considering RYGB procedure Food allergies: No Topiramate 25 MG Oral Tablet (topAMAX) Aspirin 325 MG Oral Tablet Delayed Release Cholecalciferol 1.25 MG (23557 UT) Oral Capsule Methylcobalamin 1 MG Oral Tablet Chewable Ondansetron 4 MG Oral Tablet Disintegrating (Zofran) Budesonide-Formoterol Fumarate 160-4.5 MCG/ACT Inhalation Aerosol (Symbicort) Zepbound 5 MG/0.5ML Subcutaneous Solution Auto-injector (Tirzepatide-Weight Management) Albuterol Sulfate HFA 108 (90 Base) MCG/ACT Inhalation Aerosol Solution Diclofenac Sodium 75 MG Oral Tablet Delayed Release (Voltaren) amLODIPine Besylate 10 MG Oral Tablet (Norvasc) Irbesartan 300 MG Oral Tablet (Avapro) CPAP Cyclobenzaprine HCl 10 MG Oral Tablet (Flexeril) Supplements: Protein powder 06/24/[address] Has OA in hip, planning for surgery AOM: SE's have subsided Topamax, unsure if it has helped with soda intake, will have some soda on occasion, [place], had to drink water and milk 05/28/24 -Behavior class -on Zepbound 5mg - some nausea, some diarrhea -still working on getting CPAP 05/08/24 -Nutrition class -zepbound 5mg weekly -- tolerating well -he is making some good dietary changes! Visit 03/29/24 - Overall goal: improve hip pain - Wt hx: has always struggled - Highest wt as adult: 525lbs - around 2017 - Barriers: hip pain limits exercise Food/Nutrition-Related History: Describes typical diet history/24 hr recall Breakfast: Protein drink with milk 18 g protein powder 12 g protein in milk paired with fruit Snacks: Lunch: meat sandwich (turkey and cheese) ~20 g protein, whole grain bread Snacks: Beef sticks 3-4 if at home 100 kcals each, cheese Dinner: meat veg ~40-45 g protein (can have have 3 lean burger patties) Snacks: Drinks:water propel 4-5 day just driving, Caffeine: Coke Zero Soda half a liter a day when on the road, diet tea derrekbae arango Alcohol: None Restaurant meals: 8 times a week while driving truck or might take his step kids out Protein: 100+ g Water: 64+ oz Diet recall indicates: Inadequate fiber intake Inadequate fruit and vegetable intake Portion control Low fat and/or low sugar selections Uses calorie free beverages Good meal distribution Low caffeine intake Adequate fluid intake Adequate protein intake Progress on Eating Behaviors Has been practicing: Not drinking/eating high sugar/fat items. Decreasing portions and stopping when comfortable, not full. No drinking 30 min before or after meals Needs to work on: Chewing Well following 50% of the time No eating and drinking following 50-60% of the time No drinking large quantities at once/sipping Meal times 20-30 min Activity Level: walking 50-70 min a week mod intensity Dealing with painful hip, needs surgery OBJECTIVE: Patient seen by RD for bariatric surgery evaluation; RD reviewed diet progression s/p bariatric surgery and two-week preoperative high protein liquid diet trial. Reviewed use of high protein, low sugar supplement with patient. Patient was made aware of these wood points: 1. Diet adherence is critical for successful long-term weight loss management. 2. To avoid postop complications, diet adherence is critical. 3. Vitamin and minerals will be needed for life; compliance to vitamin and mineral supplementation recommendations is important in preventing nutritional deficiencies. 4. Eating behaviors will need to be modified for long-term success. These include: slowing the rateof eating and drinking, converting to kcal free beverages only, chewing food well, and taking fluids within the time guidelines prescribed. Anthropometrics Measurements: Initial clinic visit 03/29/24. Weight 466 lbs Height 70" Body mass index is 66.84 kg/m². Program goal weight: 419lbs Highest weight: 525 lbs 2017 Today's Weight: 443 lbs Weight changes: -23 lbs since initial visit Wt Readings from Last 10 Encounters: 06/24/24 (!) 201.1 kg (443 lb 4.8 oz) 05/08/24 (!) 203.8 kg (449 lb 4.8 oz) 03/29/24 (!) 211.8 kg (466 lb 14.4 oz) 03/21/22 (!) 206.8 kg (456 lb) 12/22/21 (!) 218.2 kg (481 lb) 12/06/21 (!) 216.4 kg (477 lb) 10/14/16 (!) 229.1 kg (505 lb) 02/05/15 (!) 208.7 kg (460 lb) 11/23/14 (!) 225.4 kg (497 lb) 07/25/14 (!) 199.6 kg (440 lb) Nutrition Prescription: RMR = 2606 --> x 1.2 activity factor = 3127 Kcals/day for weight maintenance Calorie goal for weight loss = 2600 Kcals/day NUTRITION DIAGNOSIS: Overweight/obesity related to excessive energy intake and physical inactivity as evidenced by BMI of 61.83 kg/m², Class III Obesity. Patient passed written exam. Patient comprehension: Can identify foods and behaviors to modify. READINESS: YELLOW. It is my professional opinion that there are dietary contraindications to proceeding with the bariatric surgery process. There are additional recommendations noted in 'eating behaviors to modify/continue' at the end of the report that should be implemented to enhance this patient's success. Expected outcomes: Demonstrated interest in learning. Expect compliance with diet recommendations. NUTRITION INTERVENTION: Diet orders: Continue dietary modifications as is. Exercise: Continue Dietary Modifications: Eating Behaviors to Modify/Continue: Needs to work on to get the green from RD Need to follow at least 90% of the time Chewing Well No eating and drinking following No drinking large quantities at once/sipping Meal times 30 min NUTRITION MONITORING AND EVALUATION: Plan for Return in 1 month for surgery class. Return Appointment with RD: 2 months Minutes of MNT: Other: 50 Patient advised to use [employer] portal to send any follow up questions. Ketty Jean Baptiste RDN Maya Ware PA-C - 06/24/2024 8:59 AM EST Bariatric Medical Evaluation Nursing Notes: Anne Marie Mccauley RN 06/24/24 0901 Signed Chief Complaint Patient presents with NEW PATIENT BME Waist circumference 69 inches Neck circumference 19 inches Elliott Muller is a pleasant 48 year old year old male seen in the [facility] Management Clinic for an initial evaluation for bariatric surgery. Patient is interested in Gastric Bypass HPI Patient is receiving ongoing education regarding dietary and physical modifications for weight loss. - Initial clinic visit 03/29/24. Weight 466 lbs Height 70" Body mass index is 66.84 kg/m². -program goal weight: 419lbs - Today's weight: 443 lbs - Total weight loss of -23 lbs since initial weight in clinic - The patient's weight has ??? lbs since the last visit on 05/28/24 Wt Readings from Last 6 Encounters: 06/24/24 (!) 201.1 kg (443 lb 4.8 oz) 05/08/24 (!) 203.8 kg (449 lb 4.8 oz) 03/29/24 (!) 211.8 kg (466 lb 14.4 oz) 03/21/22 (!) 206.8 kg (456 lb) 12/22/21 (!) 218.2 kg (481 lb) 12/06/21 (!) 216.4 kg (477 lb) Insurance:The patient has active [employer] coverage and Bariatric Surgery is covered based on medical necessity. Pre-cert is required. The patient is required to complete 6 consecutive months of nutrition and weight management per the Medical Policy guidelines. The current BMI is 66.84 and does not require a comorbidity at this time. 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 -self directed: exercise - PF, portions -commercial: -medication: Wegovy 0.5mg - off about 2 weeks d/t supply Past Medical History Glaucoma No Hypertension: Yes, on medications CAD: No Congestive heart failure No DVT/PE, clotting disorder: No Stroke: No Seizures: No Sleep Apnea: Yes, on CPAP Asthma: Yes COPD: No Patient denies personal or family history of medullary thyroid carcinoma. Patient denies personal or family history of multiple endocrine neoplasia syndrome type II Patient denies personal history of pancreatitis Diabetes: No GERD: No History of nephrolithiasis: No. Anxiety/Depression: No There is no problem list on file for this patient. Current Outpatient Medications Medication Sig Dispense Refill [...] the morning and 2 Puffs before bedtime. Zepbound 5 MG/0.5ML Subcutaneous Solution Auto-injector (Tirzepatide-Weight Management) Inject 5 mg(1 pen) under the skin once a week. 2 mL 5 Aspirin 325 MG Oral Tablet Delayed Release 1 Tablet. Cholecalciferol 1.25 MG (82951 UT) Oral Capsule 1 Capsule once a week. Methylcobalamin 1 MG Oral Tablet Chewable daily. Ondansetron 4 MG Oral Tablet Disintegrating (Zofran) Take 1 Tablet by mouth. Topiramate 25 MG Oral Tablet (topAMAX) Take 1 Tablet by mouth in the morning. 30 Tablet 5 Cyclobenzaprine HCl 10 MG Oral Tablet (Flexeril) 1 Tablet as needed. (Patient not taking: Reported on 06/24/2024) CPAP No current facility-administered medications for this visit. Past Surgical History: Procedure Laterality Date REMOVAL OF TONSILS, UNDER AGE 11 TYMPANOSTOMY TUBES x 1 as a child Review of patient's allergies indicates: Allergen Reactions Amoxicillin Rash Penicillins Rash Psychosocial Lives at home with . They are supportive of the patient in the surgery process. Adjustment: Issues with No, no Issues with stress management Depression: No history Other Confirmed Mental Health Diagnosis: no history Alcohol Use: None Tobacco Use: Never Substance Use: None REVIEW OF SYSTEMS: Review of Systems Respiratory: Negative for shortness of breath. Cardiovascular: Negative for chest pain and palpitations. Gastrointestinal: Negative for abdominal pain, diarrhea, nausea and vomiting. PHYSICAL EXAMINATION: BP 128/88 | Pulse 72 | Temp 36.7 °C (98.1 °F) | Resp 18 | Ht 1.803 m (5' 11") | Wt (!) 201.1 kg (443 lb 4.8 oz) | BMI 61.83 kg/m² | BSA 3.17 m² Elliott was seen today for new patient. Diagnoses and all orders for this visit: Morbid obesity due to excess calories (HCC) - ADULT/PEDS PSYCHOLOGY REFERRAL OP - VITAMIN A (RETINOL); Future - ZINC; Future - FOLIC ACID; Future - PTH; Future - COPPER, SERUM OR PLASMA; Future - IRON SCREEN, INCLUDING TIBC; Future - FERRITIN; Future - VITAMIN B1 (THIAMINE), BLOOD, LC/MS/MS; Future - VITAMIN B12; Future - INSULIN; Future - COMPREHENSIVE METABOLIC PANEL; Future - CBC; Future - HEMOGLOBIN A1C; Future - LIPID PANEL WITH DIRECT LDL IF TG IS HIGH; Future - 25-HYDROXY VITAMIN D; Future - CARDIOLOGY REFERRAL OP - EKG; Future - HELICOBACTER PYLORI ANTIGEN, EIA, STOOL; Future - US ABDOMEN LIMITED; Future Other orders - Zepbound 7.5 MG/0.5ML Subcutaneous Solution Auto-injector (Tirzepatide-Weight Management); Inject7.5 mg under the skin once a week. Increase zepbound to 7.5mg weekly LESVIA (obstructive sleep apnea) -working on getting CPAP - sees Dr. Romero-- still working to get it - do not advise stopping CPAP on own--resolution of LESVIA typically requires significant wt loss; recommend following up with sleep med should CPAP become uncomfortable as settings & mask may need to be adjusted HTN, goal below 140/90 -continue current regimen BP 128/88 | Pulse 72 | Temp 36.7 °C (98.1 °F) | Resp 18 | Ht 1.803 m (5' 11") | Wt (!) 201.1 kg (443 lb 4.8 oz) | BMI 61.83 kg/m² | BSA 3.17 m² Atrial flutter, unspecified type (HCC) -reports he had cardioversion -off anticoagulation -cardiology consult placed Moderate persistent asthma without complication -stable Elliott Muller is encouraged to achieve a modest weight loss via diet, exercise, behavior modification, and pharmacotherapy to facilitate metabolic and physiological parameters. The bariatric surgery procedure and preparation process was reviewed in detail as outlined in the patient education booklet. The importance of permanent lifestyle changes and diet modifications aftersurgery was discussed. The pre- surgical screening process was reviewed in detail with the patient. He understands the need for nutritional, psychological, medical and surgical evaluations prior to surgery. A registered dietitian evaluated the patient today and was instructed in the Stage 2 diet which he will begin 2 weeks before surgery and continue during the postoperative period. To promote the encouraged weight loss prior to surgery, we discussed the use of a high protein dietfor 2 weeks. This will also help familiarize him with the Stage 2 diet. The patient has attended educational class 1 and class 2 and is scheduled for class 3. He has attended 0 support group meetings. Overall, Mr. Muller fits the criteria for bariatric surgery and should continue in the pre-screening process. Bariatric Checklist initiated today. Pending successful completion of all the required steps in the evaluation process patient will be moved on to the surgeon. The patient would like to have Gastric Bypass he/she would prefer no preference The patient will return to the Weight Management Clinic in 1 months for surgery class. He was instructed to call the clinic in the meantime with any questions or concerns. I spent a total of 50 minutes on the date of service in preparation, delivery, and documentation ofthe care provided to Elliott Muller excluding any time spent in the performance of separately billed services.This included but was no limited to providing counseling about the benefits of weight loss,about their nutritional status, detailed explanations about calorie count, types of nutrients to choose, and composition of the meals. Motivational interview provided in order to prepare the patient to achieve future goals. Maya Moreau PA-C, [facility] Nutrition and Weight Management [facility] ([facility]) documented in this encounter Nursing Notes * Anne Marie Mccauley, RN - 06/24/2024 9:01 AM EST Chief Complaint Patient presents with NEW PATIENT BME Waist circumference 69 inches Neck circumference 19 inches documented in this encounter Plan of Treatment Upcoming Encounters Date Type Department Care Team (Late st Contact Info) Description 07/01/2024 11:15 AM EST Imaging Radiology [facility] [address] [facility] [place] [address] 07/01/2024 1:15 PM EST Cardiac Studies Cardiac Studies, [facility] [address] [facility] [place] [address] 07/02/2024 9:00 AM EST Telemedicine [facility], [place] [address] [facility] [place] [id number] Jeane Reyes PsyD [address] [facility] [place] [address] 07/18/2024 2:30 PM EST Office Visit Orthopaedics [facility] [address] [facility] [place] [address] Niranjan Casiano DO [address] [place] [address] 08/13/2024 12:40 PM EST Telemedicine Nutrition & Weight Management, [facility] [address] [place] [address] Arabella Dobbs PA-C [address] [place] [address] 08/13/2024 1:30 PM EST Telemedicine Nutrition & Weight Management, [facility] [address] [facility] [place] [address] [facility], Surgery Class Provider Christina [address] [facility] [place] [address] 08/28/2024 3:10 PM EST Nutrition Services Nutrition & Weight Management, [facility] [address] [facility] [place] [address] Ketty Jean Baptiste RDN [address] [facility] [place] [address] 09/06/2024 9:00 AM EST Office Visit Cardiology, [facility] [address] [facility] [place] [address] Ty Cortez DO [address] [facility] [place] [address] Pending Results Name Type Priority Associated Diagnoses Date /Time VITAMIN A (RETINOL) Lab Routine Morbid obesity due to excess calories (HCC) 06/24/2024 11:22 AM EST ZINC Lab Routine Morbid obesity due to excess calories ([facility]) 06/24/2024 11:22 AM EST FOLIC ACID Lab Routine Morbid obesity due to excess calories ([facility]) 06/24/2024 11:22 AM EST PTH Lab Routine [...] excess calories (HCC) 06/24/2024 11:22 AM EST CBC Lab Routine Morbid obesity due to excess [...] excess calories (HCC) 06/24/2024 11:22 AM EST Scheduled Orders Name Type Priority Associated Diagnoses Orde r Schedule VITAMIN A (RETINOL) Lab Routine Morbid obesity due to excess calories (HCC) Expected: 06/24/2024 (Approximate), Expires: 09/22/2024 ZINC Lab Routine Morbid obesity due to excess calories (HCC) Expected: 06/24/2024 (Approximate), Expires: 09/22/2024 FOLIC ACID Lab Routine Morbid obesity due to excess calories (HCC) Expected: 06/24/2024 (Approximate), Expires: 09/22/2024 PTH Lab Routine Morbid obesity due to excess calories (HCC) Expected: 06/24/2024 (Approximate), Expires: 09/22/2024 COPPER, SERUM OR PLASMA Lab Routine Morbid obesity due to excess calories (HCC) Expected: 06/24/2024 (Approximate), Expires: 09/22/2024 IRON SCREEN, INCLUDING TIBC Lab Routine Morbid obesity due to excess calories (HCC) Expected: 06/24/2024 (Approximate), Expires: 09/22/2024 FERRITIN Lab Routine Morbid obesity due to excess calories (HCC) Expected: 06/24/2024 (Approximate), Expires: 09/22/2024 VITAMIN B1 (THIAMINE), BLOOD, LC/MS/MS Lab Routine Morbid obesity due to excess calories (HCC) Expected: 06/24/2024 (Approximate), Expires: 09/22/2024 VITAMIN B12 Lab Routine Morbid obesity due to excess calories (HCC) Expected: 06/24/2024 (Approximate), Expires: 09/22/2024 INSULIN Lab Routine Morbid obesity due to excess calories (HCC) Expected: 06/24/2024 (Approximate), Expires: 09/22/2024 COMPREHENSIVE METABOLIC PANEL Lab Routine Morbid obesity due to excess calories (HCC) Expected: 06/24/2024 (Approximate), Expires: 09/22/2024 CBC Lab Routine Morbid obesity due to excess calories (HCC) Expected: 06/24/2024 (Approximate), Expires: 09/22/2024 HEMOGLOBIN A1C Lab Routine Morbid obesity due to excess calories (HCC) Expected: 06/24/2024 (Approximate), Expires: 09/22/2024 LIPID PANEL WITH DIRECT LDL IF TG IS HIGH Lab Routine Morbid obesity due to excess calories (HCC) Expected: 06/24/2024 (Approximate), Expires: 09/22/2024 25-HYDROXY VITAMIN D Lab Routine Morbid obesity due to excess calories (HCC) Expected: 06/24/2024 (Approximate), Expires: 09/22/2024 EKG EKG Routine Morbid obesity due to excess calories (HCC) Expected: 07/01/2024 (Approximate), Expires: 07/25/2025 HELICOBACTER PYLORI ANTIGEN, EIA, STOOL Lab Routine Morbid obesity due to excess calories (HCC) Expected: 06/24/2024, Expires: 06/24/2025 US ABDOMEN LIMITED Medical Imaging Routine Morbid obesity due to excess calories (HCC) Expected: 07/01/2024 (Approximate), Expires: 07/25/2025 Scheduled Referrals Name Type Priority Associated Diagnoses Orde r Schedule ADULT/PEDS PSYCHOLOGY REFERRAL OP Referral Within 10 days (routine) Morbid obesity due to excess calories (HCC) Ordered: 06/24/2024 CARDIOLOGY REFERRAL OP Referral Within 10 days (routine) [...] obesity due to excess calories (HCC)- Primary LESVIA (obstructive sleep apnea) Obstructive sleep apnea (adult) (pediatric) Atrial flutter, unspecified type (HCC) HTN, goal below 140/90 Unspecified essential hypertension documented in this encounter Care Teams District Traffic Chief Relationship Specialty Start Date End Date Aman Summers MD [address] [place] [address] [place] [address] PCP - General Internal Medicine 12/06/21 documented as of this encounter
--- OUTSIDE RECORDS SUMMARY | 2024-11-20 06:59 | External Medical Summary ---
Author Name Unknown Address Unknown Organization [id number]:LABORATORY [facility] [place] - [address] [facility] [address] Laboratory Report Ordering Provider Test Date Status DONALDO PIEDRA 06/24/2024 11:22:42 Final Observation Date Value Abnormality Reference (Units ) Status HbA1C 06/24/2024 11:22:42 5.6 4.0-5.6 (% ) Final The use of HbA1c to monitor glycemic status is based on normal hemoglobin and HbA composition. This test should not be used in patients with abnormal hemoglobin that affects the half life of the red blood cell or the in vivo glycation rates. Glucose, estimated average 06/24/2024 11:22:42 114 <126 (mg/dL) Final Performing Location LABORATORY [facility] [place] [facility] [address] [facility] [address]
--- OUTSIDE RECORDS SUMMARY | 2024-11-20 06:59 | External Medical Summary | Summary of Care ---
Author Name Unknown Organization [facility] Address [address] [place] [address] Phone [phone] Care Team Providers Care Quality Assurance Supervisor Chassis Name Role Phone Aman Summers MD Primary Care Provi elliot Reason for Visit * Reason Onset Date Comments MyCode Consent 07/01/2024 Encounter Details Date Type Department Care Team (Late st Contact Info) Description 07/01/2024 Orders Only Outcomes Research Department [address] [place] [address] Lavonne Holguin CHRA MyCode Research Other*[id number]* Allergies Active Allergy Reactions Criticality Noted Date Comments Amoxicillin Rash 11/23/2014 Penicillins Rash 11/23/2014 documented as of this encounter (statuses as of 07/01/2024) Medications amLODIPine Besylate 10 MG Oral Tablet [...] Tablet. 03/07/20 23 Active Cholecalciferol 1.25 MG (36249 UT) Oral Capsule 1 Capsule once a week. 12/07/19 23 Active Methylcobalamin 1 MG Oral Tablet Chewable daily. 02/06/20 24 Active Ondansetron 4 MG Oral Tablet Disintegrating (Zofran) Take 1 Tablet by mouth. 02/24/20 23 Active Topiramate 25 MG Oral Tablet (topAMAX) Take 1 Tablet by mouth in the morning. 30 Tablet 5 05/28/20 24 Active Zepbound 7.5 MG/0.5ML Subcutaneous Solution Auto-injector ([employer] t Management) Inject 7.5 mg under the skin once a week. 2 mL 2 06/24/20 24 Active documented as of this encounter (statuses as of 07/01/2024) Active Problems No known active problems documented as of this encounter (statuses as of 07/01/2024) Immunizations Name Administration Dates Next Due TDAP [...] as of this encounter Progress Notes * Lavonne Holguin CHRA - 07/01/2024 11:51 AM EST MyCode Consent Documentation Elliott Muller provided consent/authorization to participate in the [employer]. documented in this encounter Plan of Treatment Upcoming Encounters Date Type Department Care Team (Latest Contact Info) Description 07/01/2024 1:15 PM EST Cardiac Studies Cardiac Studies, [facility] [address] [place] [address] Morbid obesity due to excess calories (HCC) 07/02/2024 9:00 AM EST Telemedicine Psychology, [place] [address] [place] [address] Jeane Reyes PsyD [address] [place] [address] 07/18/2024 2:30 PM EST Office Visit Orthopaedics [facility] [address] [place] [address] Niranjan Casiano DO [address] [place] [address] 08/13/2024 12:40 PM EST Telemedicine Nutrition & Weight Management, [facility] [address] [place] [address] Arabella Dobbs PA-C [address] [place] [address] 08/13/2024 1:30 PM EST Telemedicine Nutrition & Weight Management, [facility] [address] [facility] [place] [address] [facility], Surgery Class Provider [facility] [address] [place] [address] 08/28/2024 3:10 PM EST Nutrition Services Nutrition & Weight Management, [facility] [address] [place] [address] Ketty Jean Baptiste RDN [address] [place] [address] 09/06/2024 9:00 AM EST Office Visit Cardiology, [facility] [address] [place] [address] Ty Cortez DO [address] [place] [address] Scheduled Orders Name Type Priority Associated Diagnoses Orde r Schedule MYCODE INITIAL ADULT Lab Routine MyCode Research Other*[id number] Expected: 07/01/2024 (Approximate), Expires: 07/21/2025 Health Maintenance Due Date Last Done Comments Depression Screening 1986 HIV Screening 1989 Hepatitis [...] - Td o r Tdap) 02/05/2025 02/05/2015 Diabetes Screening 06/24/2027 06/24/2024, 06/24/2024, 08/04/2020 Lipid Panel 06/24/2029 06/24/2024 HPV (Gardasil) Vaccine Aged Out No lo nger eligible based on patient's age to complete this topic MENINGOCOCCAL (MENACTRA/MENVEO) Aged Out No longer eligible b ased on patient's age to complete this topic documented as of this encounter Medical Devices Not on filedocumented as of this encounter Visit Diagnoses Diagnosis Morbid obesity due to excess calories (HCC) MyCode Research Other*[id number]- Primary documented in this encounter Care Teams Quality Assurance Supervisor Chassis Relationship Specialty Start Date End Date Aman Summers MD [address] [place] [address] [place] [address] PCP - General Internal Medicine 12/06/21 documented as of this encounter
--- OUTSIDE RECORDS SUMMARY | 2024-11-20 06:59 | External Medical Summary | Summary of Care ---
Author Name Unknown Organization [facility] Address [address] [place] [facility] [place] [place] [address] Phone [phone] Care Team Providers Care Dust Operator Name Role Phone Aman Summers MD Primary Care Provi elliot Reason for Visit * Reason Onset Date Comments Precert Approved 04/01/2024 Zepbound Encounter Details Date Type Department Care Team (Late st Contact Info) Description 04/01/2024 Telephone Nutrition & Weight Management, [facility] [address] [place] [address] Arabella Dobbs PA-C [address] [place] [address] Precert Approved (Zepbound) Allergies Active Allergy Reactions Criticality Noted Date [...] Oral Tablet (Flexeril) 1 Tablet as needed. 023 Active Albuterol Sulfate HFA 108 (90 Base) MCG/ACT Inhalation Aerosol Solution inhale 2 puffs by mouth and INTO THE LUNGS every 6 hours if neede... (REFER TO PRESCRIPTION NOTES). 023 Active Budesonide-Form oterol Fumarate 160-4.5 MCG/ACT Inhalation Aerosol (Symbicort) Inhale 2 Puffs by mouth in the morning and 2 Puffs before bedtime. Active Fluticasone Furoate-Vilante rol 200-25 MCG/INH Inhalation Aerosol Powder Breath Activated (BREO ellipta) Inhale 1 Puff by mouth. 2023 Discontinued(M edication List Clean Up) Sodium Sulfate Powder 022 2023 Discontinued(M edication List Clean Up) Metoprolol Succinate 25 MG Oral Capsule ER 24 Hour Sprinkle Take by mouth. 2023 Discontinued(P atient preference/dis continuation) Zepbound 5 MG/0.5ML Subcutaneous Solution Auto-injector (Tirzepatide-We ight Management)Angela cations:Morbid obesity due to excess calories (HCC) Inject 5 mg (1 pen) under the skin once a week. 2 mL 5 4 3:26 PM EST 024 2023 Discontinued documented [...] encounter Miscellaneous Notes * Telephone Encounter - Faheem Silva, drum filler - 04/01/2024 8:44 AM EDT New or re-auth: new Patient Elliott Muller needs a prior authorization for a medication through their [place] insurance. Medication: Zepbound Formulation: 5mg/0.5mL prefilled pen Dosage: 2mL for 28ds ID: [id number] [id number] PCN:[id number] Target ship date is n/a. Thank you very much, Tanisha Silva Spike Machine Operator, [facility] 04/01/2024 8:44 AM documented in this encounter Plan of Treatment Upcoming Encounters Date Type Department Care Team (Late st Contact Info) Description 07/02/2024 9:00 AM EST Telemedicine [facility] [address] [place] [address] Jeane Reyes PsyD [address] [place] [address] 07/18/2024 2:30 PM EST Office Visit Orthopaedics [facility] [address] [place] [address] Niranjan Casiano DO [address] [place] [address] 08/13/2024 12:40 PM EST Telemedicine Nutrition & Weight Management, [facility] [address] [place] [address] Arabella Dobbs PA-C [address] [place] [address] 08/13/2024 1:30 PM EST Telemedicine Nutrition & Weight Management, [facility] [address] [place] [address] [facility], Surgery Class Provider Christina [address] [address] 08/28/2024 3:10 PM EST Nutrition Services Nutrition & Weight Management, [facility] [address] [place] [address] Ketty Jean Baptiste RDN [address] [place] [address] 09/06/2024 9:00 AM EST Office Visit Cardiology, [facility] [address] [place] [address] Ty Cortez DO [address] [place] [address] Health Maintenance Due Date Last Done Comments [...] 01/21/2021 Influenza Vaccine (FLU shot) (#1) 2024 06/18/2024, 06/28/2021 DTap/Tdap Vaccines (2 - Td o [...] filedocumented as of this encounter Care Teams Dust Operator Relationship Specialty Start Date End Date Aman Summers MD [address] [place] [address] [place] [address] PCP - General Internal Medicine 12/06/21 documented as of this encounter
--- OUTSIDE RECORDS SUMMARY | 2024-11-20 06:59 | External Medical Summary ---
Author Name Unknown Address Unknown Organization K01:LABORATORY [facility] [place] - [address] [address] Laboratory Report Ordering Provider Test Date Status DONALDO PIEDRA 06/24/2024 11:22:42 Final Observation Date Value Abnormality Reference (Units ) Status Iron 06/24/2024 11:22:42 27 Below low normal 45-176 (ug/dL) Final Iron-binding capacity 06/24/2024 11:22:42 254 250-425 (ug/dL) Final Transferrin Sat % 06/24/2024 11:22:42 11 Below low normal 15-55 (%) Final Performing Location LABORATORY [facility] [place] - [address] [place] [address]
--- OUTSIDE RECORDS SUMMARY | 2024-11-20 07:00 | External Medical Summary ---
Author Name Unknown Address Unknown Organization K01:LAB[facility]ATORY [facility] [place] [address] [place] [address] Laboratory Report Ordering Provider Test Date Status DONALDO PIEDRA 06/24/2024 11:22:42 Final Observation Date Value Abnormality Reference (Units ) Status Folic Acid 06/24/2024 11:22:42 3.0 Below low normal >4 .5 (ng/mL) Final Performing Location LABORATORY [facility] [place] [address] [place] [address]
--- OUTSIDE RECORDS SUMMARY | 2024-11-20 07:00 | External Medical Summary ---
Author Name Unknown Address Unknown Organization K01:[place] [facility] [place] [address] [place] [address] Laboratory Report Ordering Provider Test Date Status DONALDO PIEDRA 06/24/2024 11:22:42 Final Observation Date Value Abnormality Reference (Units ) Status Parathyrin.intact [Mass/volume] in Serum or Plasma 06/24/2024 11:22:42 66 Above high normal 15-65 (pg/mL) Final Performing Location [place] [facility] [place] [address] [place] [address]
--- OUTSIDE RECORDS SUMMARY | 2024-11-20 07:00 | External Medical Summary ---
Author Name Unknown Address Unknown Organization K01:LABORATORY [facility] [place] - [address] [address] Laboratory Report Ordering Provider Test Date Status DONALDO PIEDRA 06/24/2024 11:22:42 Final Observation Date Value Abnormality Reference (Units ) Status Insulin level 06/24/2024 11:22:42 17 3-25 ( uU/mL) Final The above reference interval is based on fasting status. Performing Location LABORATORY [facility] [place] - [address] [place] [address]
--- OUTSIDE RECORDS SUMMARY | 2024-11-20 07:00 | External Medical Summary ---
Author Name Unknown Address Unknown Organization : Laboratory Report Ordering Provider Test Date Status DONALDO PIEDRA 06/24/2024 11:22:42 Final Observation Date Value Abnormality Reference (Units ) Status Zinc, level 06/24/2024 11:22:42 58 Below low normal 6 0-130 (mcg/dL) Final This test was developed and its analytical performance
characteristics have been determined by [employer]
[place]. It has
not been cleared or approved by the U.S. Food and Drug
Administration. This assay has been validated pursuant
to the CLIA regulations and is used for clinical
purposes.

Test Performed at:
[facility]
[address] [facility]
[place] [address]
Brady Rodriguez M.D., Ph.D.,Director of Laboratories Performing Location
[2024-11-20 07:06] LABS: Troponin I High Sensitivity 7.7 pg/ml (0-20)
[2024-11-20] MEDS: METOPROLOL TARTRATE 1 MG/ML VIAL IV STA ×2 (07:12→07:54)
--- NOTE | 2024-11-20 07:14 | XRay Report ---
EXAM: XR chest 1V portable CLINICAL HISTORY: Chest pain, nonspecific. TECHNIQUE: An X-ray image of the chest is obtained in AP projection. COMPARISON: CR dated 01/01/2023. FINDINGS: Pulmonary Parenchyma: Lungs are clear bilaterally. No evidence of consolidation, collapse, or focal opacities. No pulmonary nodules are identified. Congested hilar vessels with prominent bronchovascular markings suggesting mild pulmonary congestion, Homogenous opacity was noted at the right cardiophrenic angle likely pericardial fat bed. No evidence of pleural effusion or pleural thickening. Heart and Mediastinum: Cardiomegaly. No mediastinal widening or masses. No hilar or mediastinal lymphadenopathy. Bony Thorax: The bony thorax appears intact without fractures or deformities. Soft Tissues: Soft tissues overlying the chest wall are unremarkable. IMPRESSION: 1. Cardiomegaly with mild pulmonary congestion. Correlate clinically. 2. Compared to the prior study no interval changes. Electronically signed by Naif Gonzalez 11-20-2024 07:13 AM
[2024-11-20 07:15] LABS: Thyroid Stimulating Hormone 1.719 uIu/ml (0.300-4.500)
[2024-11-20 08:03] LABS: Appearance Urine Clear (Clear); Bacteria Urine Automated None Seen (None Seen); Bilirubin Urine Negative (Negative); Blood Urine Negative (Negative); Cast Urine Automated 0-2 /lpf (0-2); Color Urine Yellow; Epithelial Cell Urine Auto 0-2 /hpf (0-2); Glucose Urine UA Negative (Negative); Ketones Urine Negative (Negative); Leukocyte Esterase Urine 1+ (Negative); Nitrite Urine Negative (Negative); Protein Urine Negative (Negative); RBC Urine Automated 0-2 /hpf (0-2); Specific Gravity Urine 1.018 (1.000-1.030); Urobilinogen Urine Negative (Negative)
[2024-11-20] MEDS: METOPROLOL TARTRATE 25 MG TAB PO ONE (09:14)
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
--- NOTE | 2024-11-20 10:05 | History & Physical Report ---
Date of Service November 20, 2024 Assessment & Plan (1) Atrial flutter with rapid ventricular response: (2) Hypertension: (3) Obstructive sleep apnea: (4) Morbid obesity: Plan 49-year-old man with previous single episode of a flutter who is admitted with rapid atrial flutter # Rapid atrial fluttersymptomatic of palpitations but no dyspnea or chest pain, no evidence of acute coronary syndrome. Now rate controlled after IV and oral metoprolol. Onset within last 12 possibly 16 hours, not chronically anticoagulated consulted cardiology especially to evaluate whether cardioversion should be pursued, we discussion on whether to keep n.p.o. and/or use IV heparin continue metoprolol increased to 50 mg metoprolol succinate twice daily starting tonight monitor telemetry repeat EKG in a.m. continue aspirin, he is on a double dose potentially because of his body weight, recent stress test was reported to be reassuring we will attempt to get records from [facility] # hypertensioncontinue metoprolol, reduced amlodipine to 5 mg, continue olmesartan # Obstructive sleep apnea continue CPAP nocturnally # minimally abnormal UAno clear-cut dysuria, doubt UTI. He was given a dose of Keflex in the ED, will hold off on further antibiotics and follow-up urine culture. Sounds like he may have BPH with LUTS at baseline # DVT prophylaxisenoxaparin twice daily, unclear whether cardiology will recommend ongoing anticoagulation History of Present Illness Chief Complaint: heart rate elevated Primary Care Provider: Aman Summers MD Mr. Muller has a history of a single episode of atrial flutter in 2022 that was treated with ANTOLIN and cardioversion. After that he has been followed by Dr. Jones with no recurrences, he was referred to [facility] to consider ablation procedure but they recommended no further treatment at this time. He has not been on rate control or anticoagulation. This morning he woke up and his watch alerted him to the fact that he was in a flutter and he did feel palpitations. He reports onset was sometime overnight. He does not have any dyspnea and no chest pain. 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 There has not been any recent change in this. He does have obstructive sleep apnea and uses a CPAP, recently had his machine replaced about a month ago. Recently he considered bariatric surgery and was evaluated by Dr. Cortez with [facility] cardiology on dobutamine stress echo was recommended I do not of the records of this but I think it was unremarkable. In the ED he was found to be in atrial flutter with variable rate he did ini tially have a rate of around 150 which was difficult to control. He was symptomatic only of palpitations. He was given 5 mg of IV metoprolol x 2 doses followed by 25 mg of oral metoprolol tartrate x 1. Since then his rate is significantly improved and has been in 4:1 block based on my review of the telemetry in the ED. his urinalysis was minimally abnormal he does have some chronic urinary frequency feeling like he needs to urinate every 2 hours or so however no dysuria. Otherwise he has been well recently. Allergies Allergy/AdvReac Type Severity Reaction Status Date / Time amoxicillin Allergy Unknown Hives Verified 11/20/24 10:01 Penicillins Allergy Unknown Hives Verified 11/20/24 08:30 Home Medications Medication Instructions Recorded Confirmed Type aspirin 325 mg tablet,delayed 650 mg PO HS 01/27/24 11/20/24 History release CPAP Machine #1 ea 03/26/24 03/26/24 Rx diclofenac sodium 75 mg 75 mg PO BID #60 tabs 08/08/24 11/20/24 Rx tablet,delayed release amlodipine 10 mg tablet 10 mg PO HS #90 tabs 11/08/24 11/20/24 Rx albuterol sulfate 90 mcg/actuation 2 puff inhalation Q6H PRN 11/20/24 11/20/24 History aerosol inhaler Shortness Of Breath Or Wheezing ibuprofen 200 mg tablet (Advil) 200 mg PO Q6H PRN Pain 11/20/24 11/20/24 History olmesartan 40 mg tablet 40 mg PO HS 11/20/24 11/20/24 History tirzepatide (weight loss) 7.5 7.5 mg subcut WK 11/20/24 11/20/24 History mg/0.5 mL subcutaneous pen injector (Zepbound) Past Med/Surg History Problem List Anemia Degeneration of intervertebral disc of lumbar region Low back pain Atrial flutter Elevated troponin Hypertension (Acute) New onset atrial flutter (Acute) Morbid obesity with BMI of 60.0-69.9, adult Bilateral sacroiliitis Scrotal ulcer (Acute) Partial thickness burn of left hip (Acute) Postoperative anemia Hip pain, bilateral Degenerative joint 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 History of atrial flutter 2022 - hx cardioversion and successful. Asthma last use inhaler 03/07/24 for wheezing in the heat. pt also experincing cold symptoms (phlegm, sneezing and mild cough). Inhaler was effective. BPH (benign prostatic hyperplasia) pt not sure if active dx or just hx. History of kidney stones Hip bursitis hx Degenerative disc disease, lumbar History of anemia History of COVID-19 diagnosed 07/29/21 @ [place]--mild symptoms, no symptoms now Arthritis Obesity HTN (hypertension) Surgical History History of cardioversion History of surgery (~09/2020) penile reconstruction @ [facility] History of tooth extraction S/P panniculectomy done at same time penile reconstruction History of tonsillectomy History of circumcision (~2014) with meatal dilatation -Dr Harvey Family History Father Diabetes Kidney stone Myocardial infarction Hypertension Grandfather Cardiac disorder Myocardial infarction Hypertension Grandmother Cancer Family/Other Diabetes Uncle Cancer Sister Morbid obesity Mother Atrial fibrillation Morbid obesity Thyroid disease Other No family history of adverse response to anesthesia Denies family history of Ovarian cancer Prostate cancer Breast cancer Colorectal cancer Social History Smoking Status: Never smoker Second Hand Exposure: No; Do You Dip or Chew Tobacco: No; Hx Alcohol Use: No Hx Substance Use: No Preferred Language: Surinamese Communication Ability: Effective Hearing Ability: Normal Ancillary Services Manager Required: No Beliefs That Will Affect Care: None marital status: Current Living Situation: Spouse and Family Current Living Situation Comment: every other week step kids are there. 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 Feels Safe at Home: Yes Childhood Exposure to Second-Hand Smoke: Yes Diet: regular caffeine: Yes Dental Care, Regularly: No Physical Activity Frequency: Does not Exercise Seatbelt Use: always Assistive Devices: Glasses Review of Systems Review of Systems: All systems reviewed & are unremarkable except as noted in HPI & below Physical Exam Physical Exam: PHYSICAL EXAMINATION Last 24h vital signs reviewed, see documentation in flowsheet General: comfortable appearing, no distress HEENT: Normocephalic, atraumatic, pupils round and equal, sclerae anicteric, no conjunctival injection, moist mucus membranes Lungs: Normal respiratory effort. Clear to auscultation bilaterally. No RRW Heart: Regular rate and rhythm, no murmurs. No JVD Abdomen: Soft, nontender, nondistended. Bowel sounds present. Extremities: Warm, dry, well-perfused. 3+ bilateral pitting follows interesting extremity edema. Neuro: Alert and oriented x 4, face symmetric, moves 4 extremities well Psych: Normal affect and behavior Results & Data Results & Data Vital Signs (Past 12 Hours) Vital Signs Temp Pulse Pulse Resp BP BP Pulse Ox 11/20/24 09:03 77 18 95 11/20/24 09:00 144/100 H 11/20/24 09:00 144/100 H 11/20/24 08:57 85 16 91 11/20/24 08:53 148/112 H 11/20/24 08:53 148/112 H 11/20/24 08:31 164/128 H 11/20/24 08:27 91 H 18 96 11/20/24 08:12 86 141/63 H 11/20/24 08:08 141/63 H 11/20/24 08:00 130 H 19 141/63 H 96 11/20/24 07:54 126 H 153/116 H 11/20/24 07:46 127 H 153/116 H 11/20/24 07:39 124 H 18 96 11/20/24 07:31 153/116 H 11/20/24 07:31 153/116 H 11/20/24 07:31 153/116 H 11/20/24 07:27 124 H 18 96 11/20/24 07:12 132 H 150/112 H 11/20/24 07:03 129 H 10 L 98 11/20/24 07:02 156/99 H 11/20/24 07:02 156/99 H 11/20/24 06:30 127 H 20 130/89 97 11/20/24 06:24 122 H 15 97 11/20/24 06:18 112/93 11/20/24 06:16 117 H 11/20/24 06:12 11/20/24 06:08 36.6 C 133 H 18 141/109 H 96 11/20/24 06:04 O2 Del Method 11/20/24 09:03 11/20/24 09:00 11/20/24 09:00 11/20/24 08:57 11/20/24 08:53 11/20/24 08:53 11/20/24 08:31 11/20/24 08:27 11/20/24 08:12 11/20/24 08:08 11/20/24 08:00 11/20/24 07:54 11/20/24 07:46 11/20/24 07:39 11/20/24 07:31 11/20/24 07:31 11/20/24 07:31 11/20/24 07:27 11/20/24 07:12 11/20/24 07:03 11/20/24 07:02 11/20/24 07:02 11/20/24 06:30 Room Air 11/20/24 06:24 Room Air 11/20/24 06:18 11/20/24 06:16 11/20/24 06:12 Room Air 11/20/24 06:08 Room Air 11/20/24 06:04 Room Air Laboratory Results Reviewed CBC. CMP - notable for mild leukocytosis WBC 11, no anemia, Cr 1.17 which is his baseline, TSH normal 1.7 UA with 1+ LE and 6-10WBC HS-Tn normal 7.7 personally reviewed the EKG tracing shows rapid atrial flutter heart rate around 124 T wave inversions in lead III and aVF personally reviewed the chest x-ray film and agree that it shows some cardiomegaly possibly mild pulmonary edema which seems unlikely PG Care Time/CCT Total # of Minutes Spent Total Time Spent with Patient: Total time spent is greater than 50% in coordination of care (as documented) at patient's floor/unit and/or counseling patient: Coding Level of Care Code 92329 INT INP/OBS CARE 3/75MIN Diagnoses Atrial flutter with rapid ventricular response I48.92 Hypertension I10 Obstructive sleep apnea G47.33 Morbid obesity E66.01
[2024-11-20] MEDS: cephALEXin 250 MG CAP PO ONE (10:09)
--- NOTE | 2024-11-20 13:23 | Cardiology Consultation ---
Date of Consultation November 20, 2024 Assessment & Plan (1) Atrial flutter: (2) Hypertension: Plan Mr Muller is a 49 year old male with a history of Hypertension, Obesity, Left Hip Osteoarthritis, Sleep Apnea, Asthma, Degenerative Disc Disease, and Paroxysmal Atrial Flutter who presented acutely to the ER today after the recent onset of Atrial Flutter. He does have a vague sense of Palpitations with Atrial Flutter and his smart watch documented that is heart rate increased overnight. Patient is otherwise asymptomatic -- he specificaly dennies any chest pain, heaviness, tightness, pressure, or discomfort. He denies any neck, jaw, back, or arm pain. He denies any nausea, vomiting, or diaphoresis. He denies any shortness of breath, unusual dyspnea on exertion, orthopnea, or PND. He denies any syncope or near syncope. He has not had any focal neurologic symptoms davidson ggestive of stroke or mini-stroke. Patient was previously treated by Dr. Quintana for atrial flutter -- patient was transiently on Metoprolol and Eliquis and he has had a cardioversion in the past. Patient was also advised to undergo ablation -- and he is too big for our EP lab. Referred to [facility] for ablation, but EP felt patient was too big for their EP lab and at that time the patient had only had 1 episode of atrial flutter. He never had his A-Flutter ablation performed. His high sensitivity troponin I is normal at 7.7 pg/mL. Electrolytes are within normal limits, and TSH is normal. EKG 11/20/24: -- Atrial fibrillation with RVR, corrected QT interval is 436 msec. Rightward axis and non-specific T wave abnormality. We attempted to convert the patient's rhythm using IV Ibutilide 1 mg given over 10 minutes but patient failed to convert. Recommend the followin. Continue Metoprolol Succinate ER 50 mg b.i.d.. 2. Convert from Lovenox to Eliquis 5 mg b.i.d.. 3. Continue Olmesartan 40 mg daily. 4. Continue Amlodipine 10 mg qHS. 5. Continue Aspirin 81 mg daily. 6. Set up for a cardioversion tomorrow. 7. Ultimately this patient will benefit with an Atrial Flutter Ablation. We will continue to follow the patient throughout his hospitalization and following discharge. History of Present Illness Reason for Consultation: - Atrial Flutter Requesting Physician: Lauryn Chang Attending Physician: Moses Christiansen MD History of Present Illness Mr Muller is a 49 year old male with a history of Hypertension, Obesity, Left Hip Osteoarthritis, Sleep Apnea, Asthma, Degenerative Disc Disease, and Paroxysmal Atrial Flutter who presented acutely to the ER today after the recent onset of Atrial Flutter. He does have a vague sense of Palpitations with Atrial Flutter and his smart watch documented that is heart rate increased overnight. Patient is otherwise asymptomatic -- he specificaly dennies any chest pain, heaviness, tightness, pressure, or discomfort. He denies any neck, jaw, back, or arm pain. He denies any nausea, vomiting, or diaphoresis. He denies any shortness of breath, unusual dyspnea on exertion, orthopnea, or PND. He denies any syncope or near syncope. He has not had any focal neurologic symptoms suggestive of stroke or mini-stroke. Patient was previously treated by Dr. Quintana for atrial flutter -- patient was transiently on Metoprolol and Eliquis and he has had a cardioversion in the past. Patient was also advised to undergo ablation -- and he is too big for our EP lab. Referred to [facility] for ablation, but EP felt patient was too big for their EP lab and at that time the patient had only had 1 episode of atrial flutter. He never had his A-Flutter ablation performed. His high sensitivity troponin I is normal at 7.7 pg/mL. Electrolytes are within normal limits, and TSH is normal. EKG 11/20/24: -- Atrial fibrillation with RVR, corrected QT interval is 436 msec. Rightward axis and non-specific T wave abnormality. Allergies Allergy/AdvReac Type Severity Reaction Status Date / Time amoxicillin Allergy Unknown Hives Verified 11/20/24 10:01 Penicillins Allergy Unknown Hives Verified 11/20/24 08:30 Home Medications Medication Instructions Recorded Confirmed Type aspirin 325 mg tablet,delayed 650 mg PO HS 01/27/24 11/20/24 History release CPAP Machine #1 ea 03/26/24 03/26/24 Rx diclofenac sodium 75 mg 75 mg PO BID #60 tabs 08/08/24 11/20/24 Rx tablet,delayed release amlodipine 10 mg tablet 10 mg PO HS #90 tabs 11/08/24 11/20/24 Rx albuterol sulfate 90 mcg/actuation 2 puff inhalation Q6H PRN 11/20/24 11/20/24 History aerosol inhaler Shortness Of Breath Or Wheezing ibuprofen 200 mg tablet (Advil) 200 mg PO Q6H PRN Pain 11/20/24 11/20/24 History olmesartan 40 mg tablet 40 mg PO HS 11/20/24 11/20/24 History tirzepatide (weight loss) 7.5 7.5 mg subcut WK 11/20/24 11/20/24 History mg/0.5 mL subcutaneous pen injector (Zepbound) Patient History Medical History History of COVID-19 (2020) Sleep apnea cpap more frequently now than in hx. History of atrial flutter 2022 - hx cardioversion and successful. Asthma last use inhaler 03/07/24 for wheezing in the heat. pt also experincing cold symptoms (phlegm, sneezing and mild cough). Inhaler was effective. BPH (benign prostatic hyperplasia) pt not sure if active dx or just hx. History of kidney stones Hip bursitis hx Degenerative disc disease, lumbar History of anemia History of COVID-19 diagnosed 07/29/21 @ [place]--mild symptoms, no symptoms now Arthritis Obesity HTN (hypertension) Surgical History History of cardioversion History of surgery (~09/2020) penile reconstruction @ [facility] History of tooth extraction S/P panniculectomy done at same time penile reconstruction History of tonsillectomy History of circumcision (~2014) with meatal dilatation -Dr Harvey Family History Father Diabetes Kidney stone Myocardial infarction Hypertension Grandfather Cardiac disorder Myocardial infarction Hypertension Grandmother Cancer Family/Other Diabetes Uncle Cancer Sister Morbid obesity Mother Atrial fibrillation Morbid obesity Thyroid disease Other No family history of adverse response to anesthesia Denies family history of Ovarian cancer Prostate cancer Breast cancer Colorectal cancer Social History Smoking Status: Never smoker Second Hand Exposure: No; Do You Dip or Chew Tobacco: No; Hx Alcohol Use: No Hx Substance Use: No Preferred Language: Guinean Communication Ability: Effective Hearing Ability: Normal Oil Producer Required: No Beliefs That Will Affect Care: None marital status: Current Living Situation: Spouse and Family Current Living Situation Comment: every other week step kids are there. 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 Physical Exam Physical Exam: Blood pressure 160/105, SpO2 96% on room air. GENERAL: Patient in no acute distress. HEENT: Head is atraumatic, normocephalic. EOM's intact. Facies symmetric. No perioral cyanosis. NECK: No JVD. JVP is not elevated. Carotid upstrokes are + 2 bilaterally without bruits. CHEST/LUNGS: Clear to auscultation throughout all lung gary. No wheezes, rales, or crackles. CVS: S1 and S2 are regular without murmurs, gallops, or rubs. PMI is nonpalpable. No lifts, heaves, or thrills. No abdominal aortic or renal bruits. ABDOMINAL EXAM: Bowel sounds are present. EXTREMITIES: No clubbing or cyanosis. No edema. Extremities are well perfused. NEUROLOGIC EXAM: Patient is awake, alert, and oriented. Pleasant and cooperative. Answers questions appropriately. Speech is clear. TILE ERECTOR: -- Atrial flutter with 4:1 AV conduction at 70 bpm. Results & Data Vital Signs (Past 12 Hours) Vital Signs Temp Pulse Pulse Resp BP BP Pulse Ox 11/20/24 13:02 73 20 165/105 H 96 11/20/24 12:03 69 23 99 11/20/24 12:03 160/100 H 11/20/24 12:03 160/100 H 11/20/24 12:03 160/100 H 11/20/24 11:36 73 16 97 11/20/24 11:00 103 H 15 95 11/20/24 11:00 139/96 11/20/24 10:36 149/96 H 11/20/24 10:36 149/96 H 11/20/24 10:33 86 18 97 11/20/24 10:30 89 18 155/115 H 97 11/20/24 10:21 74 28 H 94 11/20/24 10:14 90 11/20/24 09:45 155/115 H 11/20/24 09:45 155/115 H 11/20/24 09:42 103 H 20 94 11/20/24 09:33 92 H 15 96 11/20/24 09:03 77 18 95 11/20/24 09:00 144/100 H 11/20/24 09:00 144/100 H 11/20/24 08:57 85 16 91 11/20/24 08:53 148/112 H 11/20/24 08:53 148/112 H 11/20/24 08:31 164/128 H 11/20/24 08:27 91 H 18 96 11/20/24 08:12 86 141/63 H 11/20/24 08:08 141/63 H 11/20/24 08:00 130 H 19 141/63 H 96 11/20/24 07:54 126 H 153/116 H 11/20/24 07:46 127 H 153/116 H 11/20/24 07:39 124 H 18 96 11/20/24 07:31 153/116 H 11/20/24 07:31 153/116 H 11/20/24 07:31 153/116 H 11/20/24 07:27 124 H 18 96 11/20/24 07:12 132 H 150/112 H 11/20/24 07:03 129 H 10 L 98 11/20/24 07:02 156/99 H 11/20/24 07:02 156/99 H 11/20/24 06:30 127 H 20 130/89 97 11/20/24 06:24 122 H 15 97 11/20/24 06:18 112/93 11/20/24 06:16 117 H 11/20/24 06:12 11/20/24 06:08 36.6 C 133 H 18 141/109 H 96 11/20/24 06:04 O2 Del Method 11/20/24 13:02 Room Air 11/20/24 12:03 11/20/24 12:03 11/20/24 12:03 11/20/24 12:03 11/20/24 11:36 11/20/24 11:00 11/20/24 11:00 11/20/24 10:36 11/20/24 10:36 11/20/24 10:33 11/20/24 10:30 11/20/24 10:21 11/20/24 10:14 11/20/24 09:45 11/20/24 09:45 11/20/24 09:42 11/20/24 09:33 11/20/24 09:03 11/20/24 09:00 11/20/24 09:00 11/20/24 08:57 11/20/24 08:53 11/20/24 08:53 11/20/24 08:31 11/20/24 08:27 11/20/24 08:12 11/20/24 08:08 11/20/24 08:00 11/20/24 07:54 11/20/24 07:46 11/20/24 07:39 11/20/24 07:31 11/20/24 07:31 11/20/24 07:31 11/20/24 07:27 11/20/24 07:12 11/20/24 07:03 11/20/24 07:02 11/20/24 07:02 11/20/24 06:30 Room Air 11/20/24 06:24 Room Air 11/20/24 06:18 11/20/24 06:16 11/20/24 06:12 Room Air 11/20/24 06:08 Room Air 11/20/24 06:04 Room Air Laboratory Results Laboratory Results - last 24 hr 11/20/24 11/20/24 06:15 07:18 WBC 11.43 H RBC 5.55 Hgb 14.6 Hct 45.7 MCV 82.3 MCH 26.3 MCHC 31.9 L RDW Std Deviation 43.3 RDW Coeff of Samantha 14.4 Plt Count 278 MPV 9.8 Immature Gran % (Auto) 0.7 Neut % (Auto) 64.9 Lymph % (Auto) 22.3 Wheeler % (Auto) 9.4 Eos % (Auto) 2.3 Baso % (Auto) 0.4 Neut # (Auto) 7.41 H Lymph # (Auto) 2.55 Wheeler # (Auto) 1.08 H Eos # (Auto) 0.26 Baso # (Auto) 0.05 Immature Gran # (Auto) 0.08 Sodium 139 Potassium 4.4 Chloride 107 Carbon Dioxide 25 Anion Gap 7 BUN 25 H Creatinine 1.17 Est Cr Clr Drug Dosing 134.5 eGFR 75.95 BUN/Creatinine Ratio 21.4 H Glucose 106 H Calcium 9.1 Magnesium 2.0 Total Bilirubin 0.4 AST 11 L ALT 11 Alkaline Phosphatase 64 Troponin I High Sens 7.7 Total Protein 7.5 Albumin 3.9 Globulin 3.6 Albumin/Globulin Ratio 1.1 Lipase 15 TSH 1.719 Urine Color Yellow Urine Appearance Clear Urine pH 6.0 Ur Specific [place]atte 1.018 Urine Protein Negative Urine Glucose (UA) Negative Urine Ketones Negative Urine Blood Negative Urine Nitrite Negative Urine Bilirubin Negative Urine Urobilinogen Negative Ur Leukocyte Esterase 1+ H Urine WBC (Auto) 6-10 H Urine RBC (Auto) 0-2 U Hyaline Cast (Auto) 0-2 U Epithel Cells (Auto) 0-2 Urine Bacteria (Auto) None Seen Lyme Disease Screen Negative Diagnostic Findings CXR 11/20/24: Pulmonary Parenchyma: Lungs are clear bilaterally. No evidence of consolidation, collapse, or focal opacities. No pulmonary nodules are identified. Congested hilar vessels with prominent bronchovascular markings suggesting mild pulmonary congestion, Homogenous opacity was noted at the right cardiophrenic angle likely pericardial fat bed. No evidence of pleural effusion or pleural thickening. Heart and Mediastinum: Cardiomegaly. No mediastinal widening or masses. No hilar or mediastinal lymphadenopathy. Bony Thorax: The bony thorax appears intact without fractures or deformities. Soft Tissues: Soft tissues overlying the chest wall are unremarkable. IMPRESSION: 1. Cardiomegaly with mild pulmonary congestion. Correlate clinically. 2. Compared to the prior study no interval changes. PG Care Time/CCT Total # of Minutes Spent Total Time Spent with Patient: Total time spent is greater than 50% in coordination of care (as documented) at patient's floor/unit and/or counseling patient:65 C[place] [address] IN/OBS CONSULT LVL 5,80M Patient Type Established History Comprehensive Exam Comprehensive Medical Decision Making Moderate Complexity Diagnoses Typical atrial flutter I48.3 Atrial flutter type: typical Primary hypertension I10 Hypertension type: primary hypertension Time Spent (min) 82 (1) Atrial flutter Atrial flutter type: typical Qualified Code(s): I48.3 - Typical atrial flutter (2) Hypertension Hypertension type: primary hypertension Qualified Code(s): I10 - Essential (primary) hypertension
[2024-11-20] MEDS ORDERED: ALBUTEROL HFA 8 GM INHALER INH PRN (13:42)
[2024-11-20] MEDS ORDERED: POLYETHYLENE (MIRALAX) 17 GM PACK PO PRN (13:42)
[2024-11-20] MEDS ORDERED: ONDANSETRON INJ 2 MG/ML 2 ML VIAL IV PRN (13:42)
[2024-11-20] MEDS ORDERED: MAGNESIUM HYDROXIDE SUSP 30 ML UDC PO PRN (13:42)
[2024-11-20] MEDS ORDERED: ALUMINUM/MAGNESIUM SUSP 30 ML UDC PO PRN (13:42)
[2024-11-20] MEDS: IBUTILIDE FUMARATE 0.1 MG/ML 10 ML VIAL IV STA (14:14)
[2024-11-20] MEDS: DIGOXIN 500 MCG in SYRINGE 8 ML IV STA (17:30)
[2024-11-20] MEDS: APIXABAN 5 MG TABLET PO SCH (19:40)
[2024-11-20] MEDS: ASPIRIN 325 MG ECTAB PO SCH (19:40)
[2024-11-20] MEDS: amLODIPine BESYLATE 5 MG TAB PO SCH (19:41)
[2024-11-20] MEDS: METOPROLOL SUCC 50MG EXT REL TAB PO SCH (19:41)
[2024-11-20] MEDS: ACETAMINOPHEN 325 MG TAB PO PRN (19:48)
[2024-11-20] MEDS: LOSARTAN POTASSIUM 50 MG TAB PO SCH (20:23)
[2024-11-20] MEDS: MELATONIN 3 MG TAB PO PRN (20:23)
[2024-11-20] MEDS ORDERED: ENOXAPARIN INJ 40 MG/0.4 ML SYR SQ SCH (21:00)
[2024-11-20] MEDS ORDERED: OLMESARTAN MEDOXOMIL 40 MG TAB PO SCH (21:00)
[2024-11-20] MEDS ORDERED: DIGOXIN 250 MCG in SYRINGE 9 ML IV SCH (22:30)
--- NOTE | 2024-11-20 22:38 | Electrocardiogram Report ---
Test Reason : Blood Pressure : */* mmHG Vent. Rate : 124 BPM Atrial Rate : * BPM P-R Int : * ms QRS Dur : 108 ms QT Int : 304 ms P-R-T Axes : * 109 -22 degrees QTcB Int : 436 ms Atrial fibrillation with rapid ventricular response Rightward axis T wave abnormality, consider inferior ischemia Poor R wave progression, consider anterior MS vs. lead placement vs. LVH Abnormal ECG When compared with ECG of 27-Jan-2023 13:26, Atrial fibrillation has replaced Sinus rhythm Vent. rate has increased by 52 bpm QRS axis Shifted right T wave inversion now evident in Inferior leads Confirmed by Woody Osborne ([id number]) on 11/20/2024 10:38:25 PM Referred By: Confirmed By: Woody Osborne
[2024-11-21 05:52] LABS: BUN Creatinine Ratio 21.7 (10-20); Calcium 8.8 mg/dl (8.6-10.3); Creatinine Clr Calc Pharmacy 136.7 ml/min; Potassium 4.2 mmol/L (3.5-5.1)
--- NOTE | 2024-11-21 09:21 | Hospitalist Progress Note ---
Date of Service November 21, 2024 Assessment & Plan (1) Atrial flutter with rapid ventricular response: (2) Hypertension: (3) Obstructive sleep apnea: (4) Morbid obesity: Plan 49-year-old man with previous single episode of a flutter who is admitted with rapid atrial flutter # Rapid atrial fluttersymptomatic of palpitations but no dyspnea or chest pain, no evidence of acute coronary syndrome. Now rate controlled after IV and oral metoprolol. Onset within 12-16 hours of presentation, not chronically anticoagulated consulted cardiology, did not convert with dose of IV ibutilide in ED. Remains in 4:1 flutter on tele review and my review of EKG tracing today. continue metoprolol increased to 50 mg metoprolol succinate twice daily --apixaban 5 mg bid started 11/20 monitor telemetry continue aspirin, he is on a double dose potentially because of his body weight, recent stress test was reported to be reassuring we will attempt to get records from [facility] - reviewed cardiology recommendations, planned for cardioversion tomorrow morning # hypertensioncontinue metoprolol, reduced amlodipine to 5 mg, continue ARB - continue same meds, BP improved compared to yesterday 145-150/90 this am # Obstructive sleep apnea # Morbid obesity BMI 59 continue CPAP nocturnally -on GLP-1 agonist as outpatient # minimally abnormal UAno clear-cut dysuria, doubt UTI. He was given a dose of Keflex in the ED, will hold off on further antibiotics and follow-up urine culture. Sounds like he may have BPH with LUTS at baseline # DVT prophylaxis apixaban Admission and Anticipated Discharge Date Admission Date: November 20, 2024 Subjective Remains in 4:1 aflutter overnight, rate controlled. he is feeling better not short of breath no chest pain no palpitations overnight. He is not able to feel the 4-1 flutter lower extremity edema has improved compared to yesterday Physical Exam 2 Physical Exam: PHYSICAL EXAMINATION Last 24h vital signs reviewed, see documentation in flowsheet General: comfortable appearing, no distress HEENT: Normocephalic, atraumatic, pupils round and equal, sclerae anicteric, no conjunctival injection, moist mucus membranes Lungs: Normal respiratory effort. Clear to auscultation bilaterally. No RRW Heart: Regular rate and rhythm, no murmurs. No JVD Abdomen: Soft, nontender, nondistended. Bowel sounds present. Extremities: Warm, dry, well-perfused. 3+ bilateral pitting edema to knees has improved Neuro: Alert and oriented x 4, face symmetric, moves 4 extremities well Psych: Normal affect and behavior Results & Data Results & Data Vital Signs (Past 12 Hours) Vital Signs Temp Pulse Pulse Resp BP Pulse Ox O2 Del Method 11/21/24 08:06 79 11/21/24 08:00 Room Air 11/21/24 08:00 73 11/21/24 07:21 36.3 C L 57 L 19 149/90 H 92 Room Air 11/21/24 02:36 36.7 C 75 18 145/87 H 97 Room Air 11/20/24 22:47 36.9 C 60 18 130/84 95 Room Air 11/20/24 22:01 83 Laboratory Results 11/20/24 06:15 11/21/24 05:01 PG Care Time/CCT Total # of Minutes Spent Total Time Spent with Patient: Total time spent is greater than 50% in coordination of care (as documented) at patient's floor/unit and/or counseling patient: Coding Level of Care Code 63275 SUB INP/OBS CARE 3/50MIN Diagnoses Atrial flutter with rapid ventricular response I48.92 Primary hypertension I10 Hypertension type: primary hypertension Obstructive sleep apnea G47.33 Morbid obesity E66.01 (2) Hypertension Hypertension type: primary hypertension Qualified Code(s): I10 - Essential (primary) hypertension
--- NOTE | 2024-11-21 11:07 | Cardiology Progress Note ---
Date of Service November 21, 2024 Assessment & Plan (1) Atrial flutter: (2) Hypertension: Plan Mr Muller is a 49 year old male with a history of Hypertension, Obesity, Left Hip Osteoarthritis, Sleep Apnea, Asthma, Degenerative Disc Disease, and Paroxysmal Atrial Flutter who presented acutely to the ER today after the recent onset of Atrial Flutter. He does have a vague sense of Palpitations with Atrial Flutter and his smart watch documented that is heart rate increased overnight. Patient is otherwise asymptomatic -- he specificaly dennies any chest pain, heaviness, tightness, pressure, or discomfort. He denies any neck, jaw, back, or arm pain. He denies any nausea, vomiting, or diaphoresis. He denies any shortness of breath, unusual dyspnea on exertion, orthopnea, or PND. He denies any syncope or near syncope. He has not had any focal neurologic symptoms suggestive of stroke or mini-stroke. Patient was previously treated by Dr. Quintana for atrial flutter -- patient was transiently on Metoprolol and Eliquis and he has had a cardioversion in the past. Patient was also advised to undergo ablation -- and he is too big for our EP lab. Referred to [facility] for ablation, but EP felt patient was too big for their EP lab and at that time the patient had only had 1 episode of atrial flutter. He never had his A-Flutter ablation performed. His high sensitivity troponin I is normal at 7.7 pg/mL. Electrolytes are within normal limits, and TSH is normal. EKG 11/20/24: -- Atrial fibrillation with RVR, corrected QT interval is 436 msec. Rightward axis and non-specific T wave abnormality. We attempted to convert the patient's rhythm using IV Ibutilide 1 mg given over 10 minutes but patient failed to convert. Recommend the followin. Continue Metoprolol Succinate ER 50 mg b.i.d.. 2. Continue Eliquis 5 mg b.i.d.. 3. Continue Olmesartan 40 mg daily. 4. Continue Amlodipine 10 mg qHS. 5. Continue Aspirin 81 mg daily. 6. Awaiting an electrical cardioversion, which can hopefully be done today.. 7. Ultimately this patient will benefit with an Atrial Flutter Ablation. We will continue to follow the patient throughout his hospitalization and following discharge. Admission and Anticipated Discharge Date Admission Date: November 20, 2024 Subjective Mr Muller is a 49 year old male with a history of Hypertension, Obesity, Left Hip Osteoarthritis, Sleep Apnea, Asthma, Degenerative Disc Disease, and Paroxysmal Atrial Flutter who presented acutely to the ER today after the recent onset of Atrial Flutter. He does have a vague sense of Palpitations with Atrial Flutter and his smart watch documented that is heart rate increased overnight. Patient is otherwise asymptomatic -- he specificaly dennies any chest pain, heaviness, tightness, pressure, or discomfort. He denies any neck, jaw, back, or arm pain. He denies any nausea, vomiting, or diaphoresis. He denies any shortness of breath, unusual dyspnea on exertion, orthopnea, or PND. He denies any syncope or near syncope. He has not had any focal neurologic symptoms suggestive of stroke or mini-stroke. Patient has remained in Rate Controlled A-Flutter with 4:1 AV conduction with heart rates in the mid-70's. He did receive IV Ibutilide yesterday but did not convert back to a sinus mechanism. Awaiting elective electrical cardioversion. Review of Systems Review of Systems: -- As per HPI. Physical Exam Physical Exam: Blood pressure 149/90, pulse 75 and regular, SpO2 96% on room air. GENERAL: Patient in no acute distress. HEENT: Head is atraumatic, normocephalic. EOM's intact. Facies symmetric. No perioral cyanosis. NECK: No JVD. JVP is not elevated. Carotid upstrokes are + 2 bilaterally without bruits. CHEST/LUNGS: Clear to auscultation throughout all lung gary. No wheezes, rales, or crackles. CVS: S1 and S2 are regular without murmurs, gallops, or rubs. PMI is nonpalpable. No lifts, heaves, or thrills. No abdominal aortic or renal bruits. ABDOMINAL EXAM: Bowel sounds are present. EXTREMITIES: No clubbing or cyanosis. No edema. Extremities are well perfused. NEUROLOGIC EXAM: Patient is awake, alert, and oriented. Pleasant and coop erative. Answers questions appropriately. Speech is clear. [employer]: -- Atrial flutter with 4:1 AV conduction with heart rates in the 70's.. Results & Data Vital Signs (Past 12 Hours) Vital Signs Temp Pulse Pulse Resp BP Pulse Ox O2 Del Method 11/21/24 08:06 79 11/21/24 08:00 Room Air 11/21/24 08:00 73 11/21/24 07:21 36.3 C L 57 L 19 149/90 H 92 Room Air 11/21/24 02:36 36.7 C 75 18 145/87 H 97 Room Air Laboratory Results Laboratory Results - last 24 hr 11/21/24 05:01 Sodium 137 Potassium 4.2 Chloride 108 H Carbon Dioxide 24 Anion Gap 5 BUN 25 H Creatinine 1.15 Est Cr Clr Drug Dosing 136.7 eGFR 77.53 BUN/Creatinine Ratio 21.7 H Glucose 99 Calcium 8.8 Medications Administered Medication List Acetaminophen (Acetaminophen 325 Mg Tab) 650 mg PO Q4H PRN PRN Reason: Pain or Fever Stop: 12/20/24 13:41 Last Admin: 11/20/24 19:48 Dose: 650 mg Documented By: [facility] Amlodipine Besylate (Amlodipine Besylate 5 Mg Tab) 5 mg PO [facility] Stop: 12/20/24 20:59 Last Admin: 11/20/24 19:41 Dose: 5 mg Documented By: [facility] Apixaban (Apixaban 5 Mg Tablet) 5 mg PO BID [facility] Stop: 12/20/24 20:59 Last Admin: 11/21/24 08:08 Dose: 5 mg Documented By: [facility] Admin: 11/20/24 19:40 Dose: 5 mg Documented By: [facility] Aspirin (Aspirin 325 Mg Ectab) 650 mg PO HS [facility] Stop: 12/20/24 20:59 Last Admin: 11/20/24 19:40 Dose: 650 mg Documented By: [facility] Losartan Potassium (Losartan Potassium 50 Mg Tab) 100 mg PO HS [facility] Stop: 12/20/24 20:59 Last Admin: 11/20/24 20:23 Dose: 100 mg Documented By: [facility] Melatonin (Melatonin 3 Mg Tab) 3 mg PO HS PRN PRN Reason: Sleep Stop: 12/20/24 13:41 Last Admin: 11/20/24 20:23 Dose: 3 mg Documented By: [facility] Metoprolol Succinate (Metoprolol Succ 50mg Ext Rel Tab) 50 mg PO BID AMAURI Stop: 12/20/24 20:59 Last Admin: 11/21/24 08:06 Dose: 50 mg Documented By: Admin: 11/20/24 19:41 Dose: 50 mg Documented By: GT Discontinued Medications Cephalexin HCl (Cephalexin 250 Mg Cap) 500 mg PO NOW ONE; Protocol Stop: 11/20/24 10:00 Last Admin: 11/20/24 10:09 Dose: 500 mg Documented By: AJIT Digoxin 500 mcg/ Syringe 10 mls @ 2 mls/min IV NOW STA Stop: 11/20/24 16:33 Last Admin: 11/20/24 17:30 Dose: Not Given Documented By: DAVID Ibutilide Fumarate (Ibutilide Fumarate 0.1 Mg/Ml 10 Ml Vial) 1 mg IV NOW STA Stop: 11/20/24 13:12 Last Admin: 11/20/24 14:14 Dose: 1 mg Documented By: DAVID Metoprolol Tartrate (Metoprolol Tartrate 1 Mg/Ml Vial) 5 mg IV NOW STA Stop: 11/20/24 07:05 Last Admin: 11/20/24 07:12 Dose: 5 mg Documented By: AJIT Metoprolol Tartrate (Metoprolol Tartrate 1 Mg/Ml Vial) 5 mg IV NOW STA Stop: 11/20/24 07:51 Last Admin: 11/20/24 07:54 Dose: 5 mg Documented By: AJIT Metoprolol Tartrate (Metoprolol Tartrate 25 Mg Tab) 25 mg PO BID ONE Stop: 11/20/24 09:10 Last Admin: 11/20/24 09:14 Dose: 25 mg Documented By: AJIT PG Care Time/CCT Total # of Minutes Spent Total Time Spent with Patient: Total time spent is greater than 50% in coordination of care (as documented) at patient's floor/unit and/or counseling patient:35 Coding [place] [address] SUB INP/OBS CARE 3/50MIN Patient Type Established History Detailed Exam Detailed Medical Decision Making High Complexity Diagnoses Typical atrial flutter I48.3 Atrial flutter type: typical Primary hypertension I10 Hypertension type: primary hypertension Time Spent (min) 55 (1) Atrial flutter Atrial flutter type: typical Qualified Code(s): I48.3 - Typical atrial flutter (2) Hypertension Hypertension type: primary hypertension Qualified Code(s): I10 - Essential (primary) hypertension
[2024-11-22] MEDS ORDERED: KETAMINE HCL 10MG/ML SYR ONE (07:17)
--- NOTE | 2024-11-22 07:20 | Anesthesiology Consultation ---
Date of Service November 22, 2024 Assessment & Plan (1) Preoperative examination: Chart Review Chart Review: Acceptable Risk for Surgery History Surgery Operation Date: 11/22/24 07:30 Proposed Procedures p Cardioversion w/Anesthesia Sedation - Aman Quintana MD Height/Weight Height: 6 ft Weight: 198.3 kg Allergies Allergy/AdvReac Type Severity Reaction Status Date / Time amoxicillin Allergy Unknown Hives Verified 11/20/24 10:01 Penicillins Allergy Unknown Hives Verified 11/20/24 08:30 Medications Home Medications Medication Instructions Recorded Confirmed Last Taken aspirin 325 mg tablet,delayed 650 mg PO HS 01/27/24 11/20/24 11/19/24 release CPAP Machine #1 ea 03/26/24 03/26/24 Unknown diclofenac sodium 75 mg 75 mg PO BID #60 tabs 08/08/24 11/20/24 11/19/24 tablet,delayed release amlodipine 10 mg tablet 10 mg PO HS #90 tabs 11/08/24 11/20/24 11/19/24 albuterol sulfate 90 mcg/actuation 2 puff inhalation Q6H PRN 11/20/24 11/20/24 Unknown aerosol inhaler Shortness Of Breath Or Wheezing ibuprofen 200 mg tablet (Advil) 200 mg PO Q6H PRN Pain 11/20/24 11/20/24 Unknown olmesartan 40 mg tablet 40 mg PO HS 11/20/24 11/20/24 11/19/24 tirzepatide (weight loss) 7.5 7.5 mg subcut WK 11/20/24 11/20/24 11/17/24 mg/0.5 mL subcutaneous pen injector (Zepbound) Active Medications Generic Name Dose Route Start Last Admin Trade Name Freq PRN Reason Stop Dose Admin Acetaminophen 650 mg 11/20/24 13:42 11/21/24 20:11 Acetaminophen 325 Mg Tab PO 12/20/24 13:41 650 mg Q4H PRN Administration Pain or Fever Amlodipine Besylate 5 mg 11/20/24 21:00 11/21/24 20:12 Amlodipine Besylate 5 Mg Tab PO 12/20/24 20:59 5 mg HS AMAURI Administration Apixaban 5 mg 11/20/24 21:00 11/21/24 20:12 Apixaban 5 Mg Tablet PO 12/20/24 20:59 5 mg BID AMAURI Administration Aspirin 650 mg 11/20/24 21:00 11/21/24 20:12 Aspirin 325 Mg Ectab PO 12/20/24 20:59 650 mg HS AMAURI Administration Losartan Potassium 100 mg 11/20/24 21:00 11/21/24 20:12 Losartan Potassium 50 Mg Tab PO 12/20/24 20:59 100 mg HS AMAURI Administration Melatonin 3 mg 11/20/24 13:42 11/21/24 20:11 Melatonin 3 Mg Tab PO 12/20/24 13:41 3 mg HS PRN Administration Sleep Metoprolol Succinate 50 mg 11/20/24 21:00 11/21/24 20:12 Metoprolol Succ 50mg Ext Rel Tab PO 12/20/24 20:59 50 mg BID AMAURI Administration Past Medical History Medical History History of COVID-19 (2020) Sleep apnea cpap more frequently now than in hx. History of atrial flutter 2022 - hx cardioversion and successful. Asthma last use inhaler 03/07/24 for wheezing in the heat. pt also experincing cold symptoms (phlegm, sneezing and mild cough). Inhaler was effective. BPH (benign prostatic hyperplasia) pt not sure if active dx or just hx. History of kidney stones Hip bursitis hx Degenerative disc disease, lumbar History of anemia History of COVID-19 diagnosed 07/29/21 @ [place]--mild symptoms, no symptoms now Arthritis Obesity HTN (hypertension) Past Family History Family History Father Diabetes Kidney stone Myocardial infarction Hypertension Grandfather Cardiac disorder Myocardial infarction Hypertension Grandmother Cancer Family/Other Diabetes Uncle Cancer Sister Morbid obesity Mother Atrial fibrillation Morbid obesity Thyroid disease Other No family history of adverse response to anesthesia Denies family history of Ovarian cancer Prostate cancer Breast cancer Colorectal cancer Past Surgical History Surgical History History of cardioversion History of surgery (~09/2020) penile reconstruction @ [facility] History of tooth extraction S/P panniculectomy done at same time penile reconstruction History of tonsillectomy History of circumcision (~2014) with meatal dilatation -Dr Harvey Social History Smoking Status: Never smoker Do You Dip or Chew Tobacco: No Hx Alcohol Use: No Hx Substance Use: No substance use type: does not use Physical Exam Vital Signs Last Vital Signs Temp 36.7 C 11/22/24 03:28 Pulse 84 11/22/24 07:09 Resp 16 11/22/24 07:09 BP 162/116 H 11/22/24 07:09 Pulse Ox 95 11/22/24 07:09 O2 Del Method Room Air 11/22/24 07:09 Testing Laboratory Results 11/20/24 06:15 11/21/24 05:01 Urine Color Yellow 11/20/24 07:18 Urine Appearance Clear (Clear) 11/20/24 07:18 Urine pH 6.0 (4.5-7.5) 11/20/24 07:18 Ur Specific Campbell 1.018 (1.000-1.030) 11/20/24 07:18 Urine Protein Negative (Negative) 11/20/24 07:18 Urine Glucose (UA) Negative (Negative) 11/20/24 07:18 Urine Ketones Negative (Negative) 11/20/24 07:18 Urine Nitrite Negative (Negative) 11/20/24 07:18 Ur Leukocyte Esterase 1+ (Negative) H 11/20/24 07:18 Urine WBC (Auto) 6-10 /hpf (0-5) H 11/20/24 07:18 Urine RBC (Auto) 0-2 /hpf (0-2) 11/20/24 07:18 U Hyaline Cast (Auto) 0-2 /lpf (0-2) 11/20/24 07:18 U Epithel Cells (Auto) 0-2 /hpf (0-2) 11/20/24 07:18 Urine Bacteria (Auto) None Seen (None Seen) 11/20/24 07:18 11/20/24 Unknown Urine Culture - Final Urine,Clean Catch Three types of organisms present, all moderate counts. Repeat collection recommended. No further identifications or sensitivities to follow. Electrocardiogram Date: 11/21/24 Findings: + AFIB @ (flutter with v rate of 73) and + LBBB (incomplete) Echocardiogram 2022 [place] showed low normal EF and no signif valve disease
[2024-11-22] MEDS ORDERED: PROPOFOL IV EMULSION 10 MG/ML 20 ML VIAL IV ONE (07:22)
[2024-11-22] MEDS ORDERED: LIDOCAINE 2% 2 ML VIAL/AMP(20MG/ML) INFIL ONE (07:22)
--- NOTE | 2024-11-22 07:51 | Cardioversion ---
Date of Service November 22, 2024 PG Electrical Cardioversion Rp Electrical Cardioversion Report Procedure performed: Cardioversion Indication: The patient is a 49-year-old gentleman with a history of recurrent atrial flutter Staff web portal developer: Aman Quintana MD Procedure in detail: The patient was informed of the risks benefits and alternatives to the intended procedure. He understood such which proceed. He was taken to the cardiac catheterization suite holding area. A general anesthetic was administered by the Anesthesiology Service. Once appropriately anesthetized, the patient was cardioverted using 200 joules delivered in a biphasic fashion. This returned the patient to sinus rhythm. The patient tolerated procedure well, there were no immediate complications. Patient was neurologically intact subsequent to the procedure. Impression: Successful cardioversion from atrial flutter to normal sinus rhythm Coding Level of Care Code 18042 CARDIOVERSION, ELECTIVE Additional Codes Electrical Cardioversion Report ([id number])
--- NOTE | 2024-11-22 08:12 | Anesthesiology Progress Note ---
Date of Service November 22, 2024 Anesthesia Post Procedure Vital Signs Vital Signs: Temp Pulse Pulse Resp BP Pulse Ox O2 Del Method 11/22/24 08:00 72 18 124/93 95 Room Air 11/22/24 07:45 71 18 122/82 97 Room Air 11/22/24 07:09 84 16 162/116 H 95 Room Air 11/22/24 03:28 36.7 C 80 18 144/55 H 96 Room Air 11/21/24 23:39 36.8 C 115 H 18 145/66 H 96 Room Air 11/21/24 21:43 78 11/21/24 20:02 36.6 C 61 18 158/78 H 95 Room Air 11/21/24 17:00 Room Air 11/21/24 15:58 36.6 C 97 H 20 135/93 96 Room Air 11/21/24 14:10 80 11/21/24 11:40 36.6 C 98 H 17 154/81 H 96 Room Air Pain Intensity Bilateral Hip: Pain Intensity: 7 Transfer of Care Handoff Completed per policy Notes Mental Status: alert / awake / arousable Patient Amnestic to Procedure: Yes Nausea / Vomiting: adequately controlled Pain: adequately controlled Airway Patency, RR, SpO2: stable & adequate BP & HR: stable & adequate Hydration State: stable & adequate Anesthetic Complications: no major complications apparent
[2024-11-22 08:23] VITALS: TEMP 97.9
[2024-11-22 09:17] VITALS: BP 144/106; RESP 16; O2SAT 96
--- NOTE | 2024-11-22 09:50 | Cardiology Progress Note ---
Date of Service November 22, 2024 Assessment & Plan (1) Atrial flutter: (2) Hypertension: Plan Mr Muller is a 49 year old male with a history of Hypertension, Obesity, Left Hip Osteoarthritis, Sleep Apnea, Asthma, Degenerative Disc Disease, and Paroxysmal Atrial Flutter who presented acutely to the ER today after the recent onset of Atrial Flutter. He does have a vague sense of Palpitations with Atrial Flutter and his smart watch documented that is heart rate increased overnight. Patient is otherwise asymptomatic -- he specificaly dennies any chest pain, heaviness, tightness, pressure, or discomfort. He denies any neck, jaw, back, or arm pain. He denies any nausea, vomiting, or diaphoresis. He denies any shortness of breath, unusual dyspnea on exertion, orthopnea, or PND. He denies any syncope or near syncope. He has not had any focal neurologic symptoms suggestive of stroke or mini-stroke. Patient was previously treated by Dr. Quintana for atrial flutter -- patient was transiently on Metoprolol and Eliquis and he has had a cardioversion in the past. Patient was also advised to undergo ablation -- and he is too big for our EP lab. Referred to [facility] for ablation, but EP felt patient was too big for their EP lab and at that time the patient had only had 1 episode of atrial flutter. He never had his A-Flutter ablation performed. His high sensitivity troponin I is normal at 7.7 pg/mL. Electrolytes are within normal limits, and TSH is normal. EKG 11/20/24: -- Atrial fibrillation with RVR, corrected QT interval is 436 msec. Rightward axis and non-specific T wave abnormality. We attempted to convert the patient's rhythm using IV Ibutilide 1 mg given over 10 minutes but patient failed to convert. Patient underwent an elective electrical cardioversion this morning and was successfully converted back to a sinus rhythm. He remains asymptomatic from a cardiac standpoint. Recommend the followin. Continue Metoprolol Succinate ER 50 mg b.i.d.. 2. Continue Eliquis 5 mg b.i.d.. 3. Continue Olmesartan 40 mg daily. 4. Continue Amlodipine 10 mg qHS. 5. Continue Aspirin 81 mg daily. 6. Ultimately this patient will benefit with an Atrial Flutter Ablation. Patient is stable for discharge. Admission and Anticipated Discharge Date Admission Date: November 21, 2024 Subjective Mr. Muller underwent an elective electrical cardioversion this morning and was successfully converted back to a sinus rhythm. He remains asymptomatic from a cardiac standpoint. Review of Systems Review of Systems: -- As per HPI. Physical Exam Physical Exam: Blood pressure 144/106, pulse 64 and regular, SpO2 96% on room air. GENERAL: Patient in no acute distress. HEENT: Head is atraumatic, normocephalic. EOM's intact. Facies symmetric. No perioral cyanosis. NECK: No JVD. JVP is not elevated. Carotid upstrokes are + 2 bilaterally without bruits. CHEST/LUNGS: Clear to auscultation throughout all lung gary. No wheezes, rales, or crackles. CVS: S1 and S2 are regular without murmurs, gallops, or rubs. PMI is nonpalpable. No lifts, heaves, or thrills. No abdominal aortic or renal bruits. ABDOMINAL EXAM: Bowel sounds are present. EXTREMITIES: No clubbing or cyanosis. No edema. Extremities are well perfused. NEUROLOGIC EXAM: Patient is awake, alert, and oriented. Pleasant and cooperative. Answers questions appropriately. Speech is clear. FOUNTAIN SERVER: -- Normal sinus rhythm. Results & Data Vital Signs (Past 12 Hours) Vital Signs Temp Pulse Pulse Resp BP Pulse Ox O2 Del Method 11/22/24 09:16 78 16 144/106 H 96 Room Air 11/22/24 08:45 80 18 157/111 H 94 Room Air 11/22/24 08:22 36.6 C 74 18 148/85 H 96 Room Air 11/22/24 08:00 72 18 124/93 95 Room Air 11/22/24 07:45 71 18 122/82 97 Room Air 11/22/24 07:09 84 16 162/116 H 95 Room Air 11/22/24 05:36 89 11/22/24 03:28 36.7 C 80 18 144/55 H 96 Room Air 11/21/24 23:39 36.8 C 115 H 18 145/66 H 96 Room Air Medications Administered Medication List Acetaminophen (Acetaminophen 325 Mg Tab) 650 mg PO Q4H PRN PRN Reason: Pain or Fever Stop: 12/20/24 13:41 Last Admin: 11/21/24 20:11 Dose: 650 mg Documented By: [facility] Admin: 11/21/24 14:17 Dose: 650 mg Documented By: Admin: 11/20/24 19:48 Dose: 650 mg Documented By: [facility] Amlodipine Besylate (Amlodipine Besylate 5 Mg Tab) 5 mg PO HS AMAURI Stop: 12/20/24 20:59 Last Admin: 11/21/24 20:12 Dose: 5 mg Documented By: [facility] Admin: 11/20/24 19:41 Dose: 5 mg Documented By: [facility] Apixaban (Apixaban 5 Mg Tablet) 5 mg PO BID AMAURI Stop: 12/20/24 20:59 Last Admin: 11/22/24 09:14 Dose: 5 mg Documented By: Admin: 11/21/24 20:12 Dose: 5 mg Documented By: [facility] Admin: 11/21/24 08:08 Dose: 5 mg Documented By: Admin: 11/20/24 19:40 Dose: 5 mg Documented By: [facility] Aspirin (Aspirin 325 Mg Ectab) 650 mg PO HS AMAURI Stop: 12/20/24 20:59 Last Admin: 11/21/24 20:12 Dose: 650 mg Documented By: [facility] Admin: 11/20/24 19:40 Dose: 650 mg Documented By: [facility] Losartan Potassium (Losartan Potassium 50 Mg Tab) 100 mg PO HS AMAURI Stop: 12/20/24 20:59 Last Admin: 11/21/24 20:12 Dose: 100 mg Documented By: [facility] Admin: 11/20/24 20:23 Dose: 100 mg Documented By: [facility] Melatonin (Melatonin 3 Mg Tab) 3 mg PO HS PRN PRN Reason: Sleep Stop: 12/20/24 13:41 Last Admin: 11/21/24 20:11 Dose: 3 mg Documented By: [facility] Admin: 11/20/24 20:23 Dose: 3 mg Documented By: [facility] Metoprolol Succinate (Metoprolol Succ 50mg Ext Rel Tab) 50 mg PO BID AMAURI Stop: 12/20/24 20:59 Last Admin: 11/22/24 09:14 Dose: 50 mg Documented By: Admin: 11/21/24 20:12 Dose: 50 mg Documented By: [facility] Admin: 11/21/24 08:06 Dose: 50 mg Documented By: Admin: 11/20/24 19:41 Dose: 50 mg Documented By: GT Discontinued Medications Cephalexin HCl (Cephalexin 250 Mg Cap) 500 mg PO NOW ONE; Protocol Stop: 11/20/24 10:00 Last Admin: 11/20/24 10:09 Dose: 500 mg Documented By: AJIT Digoxin 500 mcg/ Syringe 10 mls @ 2 mls/min IV NOW STA Stop: 11/20/24 16:33 Last Admin: 11/20/24 17:30 Dose: Not Given Documented By: DAVID Ibutilide Fumarate (Ibutilide Fumarate 0.1 Mg/Ml 10 Ml Vial) 1 mg IV NOW STA Stop: 11/20/24 13:12 Last Admin: 11/20/24 14:14 Dose: 1 mg Documented By: DAVID Metoprolol Tartrate (Metoprolol Tartrate 1 Mg/Ml Vial) 5 mg IV NOW STA Stop: 11/20/24 07:05 Last Admin: 11/20/24 07:12 Dose: 5 mg Documented By: AJIT Metoprolol Tartrate (Metoprolol Tartrate 1 Mg/Ml Vial) 5 mg IV NOW STA Stop: 11/20/24 07:51 Last Admin: 11/20/24 07:54 Dose: 5 mg Documented By: AJIT Metoprolol Tartrate (Metoprolol Tartrate 25 Mg Tab) 25 mg PO BID ONE Stop: 11/20/24 09:10 Last Admin: 11/20/24 09:14 Dose: 25 mg Documented By: AJIT PG Care Time/CCT Total # of Minutes Spent Total Time Spent with Patient: Total time spent is greater than 50% in coordination of care (as documented) at patient's floor/unit and/or counseling patient:15 Coding [place] [address] SUB INP/OBS CARE 08/17MIN Patient Type Established History Problem Focused Exam Problem Focused Medical Decision Making Straight Forward Diagnoses Typical atrial flutter I48.3 Atrial flutter type: typical Primary hypertension I10 Hypertension type: primary hypertension Time Spent (min) 26 (1) Atrial flutter Atrial flutter type: typical Qualified Code(s): I48.3 - Typical atrial fl utter (2) Hypertension Hypertension type: primary hypertension Qualified Code(s): I10 - Essential (primary) hypertension
[2024-11-22 11:15] VITALS: PULSE 78
--- NOTE | 2024-11-23 00:22 | Electrocardiogram Report ---
Test Reason : Blood Pressure : */* mmHG Vent. Rate : 69 BPM Atrial Rate : 69 BPM P-R Int : 190 ms QRS Dur : 116 ms QT Int : 402 ms P-R-T Axes : 53 -46 43 degrees QTcB Int : 430 ms Normal sinus rhythm Left anterior fascicular block Abnormal ECG When compared with ECG of 22-Nov-2024 06:09, (unconfirmed) Sinus rhythm has replaced Atrial flutter Confirmed by Aman Casey ([id number]) on 11/23/2024 12:22:12 AM Referred By: REFERRED SELF Confirmed By: Aman Casey
--- NOTE | 2024-11-23 00:28 | Electrocardiogram Report ---
Test Reason : Blood Pressure : */* mmHG Vent. Rate : 83 BPM Atrial Rate : 293 BPM P-R Int : * ms QRS Dur : 108 ms QT Int : 368 ms P-R-T Axes : 168 -48 40 degrees QTcB Int : 432 ms Atrial flutter with variable A-V block Left axis deviation Abnormal ECG When compared with ECG of 21-Nov-2024 05:50, (unconfirmed) No significant change was found Confirmed by Aman Casey ([id number]) on 11/23/2024 12:28:13 AM Referred By: REFERRED SELF Confirmed By: Aman Casey
--- NOTE | 2024-11-23 14:38 | Electrocardiogram Report ---
Test Reason : Blood Pressure : */* mmHG Vent. Rate : 76 BPM Atrial Rate : 263 BPM P-R Int : * ms QRS Dur : 124 ms QT Int : 356 ms P-R-T Axes : 248 -53 52 degrees QTcB Int : 400 ms Atrial flutter with variable A-V block Left anterior fascicular block Minimal voltage criteria for LVH, may be normal variant ( Nicholson product ) Abnormal ECG When compared with ECG of 20-Nov-2024 06:15, Atrial flutter has replaced Atrial fibrillation Vent. rate has decreased by 48 bpm Left anterior fascicular block is now Present Non-specific change in ST segment in Inferior leads T wave inversion no longer evident in Inferior leads Confirmed by Alexandrea Pretty ([id number]) on 11/23/2024 2:38:19 PM Referred By: REFERRED SELF Confirmed By: Alexandrea Pretty
--- NOTE | 2024-11-23 14:51 | Electrocardiogram Report ---
Test Reason : Blood Pressure : */* mmHG Vent. Rate : 73 BPM Atrial Rate : 292 BPM P-R Int : * ms QRS Dur : 112 ms QT Int : 384 ms P-R-T Axes : 241 -42 42 degrees QTcB Int : 423 ms Atrial flutter with 4:1 A-V conduction Left axis deviation Incomplete left bundle block Abnormal ECG When compared with ECG of 20-Nov-2024 09:19, (unconfirmed) No significant change was found Confirmed by Alexandrea Pretty (Neelam) on 11/23/2024 2:51:16 PM Referred By: REFERRED SELF Confirmed By: Alexandrea Pretty
--- NOTE | 2024-11-23 16:32 | Discharge Summary ---
Discharge Summary Date of Service November 22, 2024 Principal Dx & Hospital Course #1 = Principal Diagnosis (1) Atrial flutter with rapid ventricular response: (2) Hypertension: (3) Obstructive sleep apnea: (4) Morbid obesity: Plan 49-year-old man with previous single episode of a flutter who is admitted with rapid atrial flutter # Rapid atrial fluttersymptomatic of palpitations but no dyspnea or chest pain, no evidence of acute coronary syndrome. rate controlled after IV and oral metoprolol. Onset within 12-16 hours of presentation, not chronically anticoagulated consulted cardiology, did not convert with dose of IV ibutilide in ED. Remained in 4:1 flutter --apixaban 5 mg bid started 11/20 --cardioverted successfully this AM --follow up with Dr. Quintana or Dr. Cortez - has seen both in recent past --has been seen at [facility] regarding ablation procedure. he would rather have second opinion from EP at [facility] # hypertensioncontinue metoprolol, amlodipine to 5 mg, continue ARB # Obstructive sleep apnea # Morbid obesity BMI 59 continue CPAP nocturnally -on GLP-1 agonist as outpatient # minimally abnormal UAno clear-cut dysuria, doubt UTI. He was given a dose of Keflex in the ED, I did not continue it since he was asymptomatic. Culture was polymicrobial probably contaminated. Sounds like he may have BPH with LUTS at baseline Admission HPI Per Admitting Provider Mr. Muller has a history of a single episode of atrial flutter in 2022 that was treated with ANTOLIN and cardioversion. After that he has been followed by Dr. Jones with no recurrences, he was referred to [facility] to consider ablation procedure but they recommended no further treatment at this time. He has not been on rate control or anticoagulation. This morning he woke up and his watch alerted him to the fact that he was in a flutter and he did feel palpitations. He reports onset was sometime overnight. He does not have any dyspnea and no chest pain. 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 There has not been any recent change in this. He does have obstructive sleep apnea and uses a CPAP, recently had his machine replaced about a month ago. Recently he considered bariatric surgery and was evaluated by Dr. Cortez with [facility] chronic cardiology on dobutamine stress echo was recommended I do not of the records of this but I think it was unremarkable. In the ED he was found to be in atrial flutter with variable rate he did initially have a rate of around 150 which was difficult to control. He was symptomatic only of palpitations. He was given 5 mg of IV metoprolol x 2 doses followed by 25 mg of oral metoprolol tartrate x 1. Since then his rate is significantly improved and has been in 4:1 block based on my review of the telemetry in the ED. his urinalysis was minimally abnormal he does have some chronic urinary frequency feeling like he needs to urinate every 2 hours or so however no dysuria. Otherwise he has been well recently. Discharge Exam PHYSICAL EXAMINATION Last 24h vital signs reviewed, see documentation in flowsheet General: comfortable appearing, up dressed in street clothes HEENT: Normocephalic, atraumatic, pupils round and equal, sclerae anicteric, no conjunctival injection, moist mucus membranes Lungs: Normal respiratory effort. Clear to auscultation bilaterally. No RRW Heart: Regular rate and rhythm, no murmurs. No JVD Abdomen: nondistended Extremities: Warm, dry, well-perfused. 3+ bilateral pitting edema to knees has improved Neuro: Alert and oriented x 4, face symmetric, moves 4 extremities well Psych: Normal affect and behavior Discharge Plan Discharge Items Patient Disposition: Home - Self-Care Reason For Visit: AFLUTTER Discharge Diagnosis: Rapid atrial flutter Activity: Resume your previous activity Non-emergency contact: Primary Care Provider and Technician Call non-emergency contact if: you have any medication questions and your symptoms worsen Follow-up/Referrals: Bowen Burdick PA-C [Physician Oil Inspector] - 11/29/24 2:45 pm (Hospital follow up scheduled November 29 at 2:[address] Quintana) Aman Summers MD [Primary Care Provider] - 11/29/24 11:00 am (Hospital follow up scheduled November 29 at 11:00) Diet: Low Sodium (2gm) Addtl Attending Provider Instructions: You were treated for rapid atrial flutter This was treated with medications and cardioversion procedure Currently you're back in normal rhythm Technician recommends the following medications: 1. Continue Metoprolol Succinate ER 50 mg b.i.d.. - controls heart rate and protects the heart muscle 2. Continue Eliquis 5 mg b.i.d.. - blood thinner to prevent stroke. Aflutter causes increased risk of stroke 3. Continue Olmesartan 40 mg daily. - blood pressure, kidney protection 4. Continue Amlodipine 10 mg qHS. - blood pressure 5. Stop the 325 mg aspirins and continue Aspirin 81 mg daily. - helps prevent stroke and heart attack. You can buy this over the counter 6. You will benefit from an Atrial Flutter Ablation procedure. We can't do this procedure for you at [facility]. You can follow up with Dr. Trejo at [facility], or seek second opinion with a Cardiac Insulation Board Coater Operator at [facility]. Follow up soon with cardiology - with [facility] / Dr. Quintana's office or with [facility] Dr. Cortez, depending where you want your ongoing cardiac care to be We discussed the risks and benefits of anticoagulation with Eliquis, including the risks of gastrointestinal bleeding - seek medical attention if you have black/tarry or bloody stool There is also a very small but real risk of intracranial hemorrhage - related to head trauma or bleeding-type stroke, that can be life threatening. Call 911 if you have altered mental status or symptoms of stroke (weakness or numbness of face/arm/leg, trouble speaking or understanding, trouble with walking/balance Cardiologists recommend blood thinner in your case because the risk of stroke is much higher than the risk of severe bleeding No not take NSAIDS (diclofenac pills, ibuprofen, naproxen or more than 81 mg of aspirin) while taking Eliquis because the bleeding risk is too high. Acetaminophen is safe, it is also ok to use topical diclofenac for pain (available over the counter) If you have excessive minor bleeding (like nosebleed or hemorrhoid bleeding) discuss with your cash applications analyst whether you can stop the baby aspirin Continue using your CPAP which can help prevent episodes of afib and aflutter It was a pleasure taking care of you in the hospital, Lauryn Chang MD Pending Studies at Discharge: No Stand-Alone Forms: My [facility] [employer], Smoking Cessation Medications and DC Order Prescriptions: New Eliquis 5 mg Tablet 5 mg PO BID Qty: 60 0RF metoprolol succinate 50 mg Tablet Extended Release 24 Hr 50 mg PO BID Qty: 60 0RF aspirin 81 mg tablet,delayed release (DR/EC) 81 mg PO DAILY Qty: 30 0RF Rx Instructions: buy over the counter Continued amlodipine 10 mg tablet 10 mg PO HS Qty: 90 3RF (DME) CPAP Machine Misc See Rx Instructions .Route Qty: 1 0RF Rx Instructions: ResMed CPAP machine set to 14 cm water pressure with heated humidificaiton, tubing, and supplies. MARIAH: 99+ years. olmesartan 40 mg tablet 40 mg PO HS Zepbound 7.5 mg/0.5 mL pen injector 7.5 mg subcut WK Rx Instructions: Monday albuterol sulfate 90 mcg/actuation HFA aerosol inhaler 2 puff inhalation Q6H PRN (Reason: Shortness Of Breath Or Wheezing) Rx Instructions: INHALE 2 PUFFS BY MOUTH AND INTO THE LUNGS EVERY 6 HOURS IF NEEDED FOR WHEEZING OR SHORTNESS OF BREATH Discontinued diclofenac sodium 75 mg tablet,delayed release (DR/EC) 75 mg PO BID Qty: 60 5RF ibuprofen [Advil] 200 mg Tablet 200 mg PO Q6H PRN (Reason: Pain) aspirin 325 mg tablet,delayed release (DR/EC) 650 mg PO HS Discharge Orders: Discharge Order (Routine); Ordered 11/22/24 Ordered By: Lauryn Chang Admission Data Admit Date/Time: 11/21/24 18:15 Attending Provider: Lauryn Chang Admit Provider: Lauryn Chang Primary Care Provider: Aman Summers Other Providers: Lauryn Chang; Bowen Burdick Other Interventions: Discharge Summary Assessment (RN) Last Done: 11/22/24 11:14 Hospital Stay Data Consultations 11/20/24 10:05 ED Decision to Admit Stat 11/20/24 12:19 Consult Cardiology Routine Procedures Performed Operation Date: 11/22/24 07:30 Actual Procedures p Cardioversion - Aman Quintana MD Pending Results Patient Have Any Pending Studies at Discharge: No Discharge Instructions Given to Patient (Per Discharging Provider) You were treated for rapid atrial flutter This was treated with medications and cardioversion procedure Currently you're back in normal rhythm Technician recommends the following medications: 1. Continue Metoprolol Succinate ER 50 mg b.i.d.. - controls heart rate and protects the heart muscle 2. Continue Eliquis 5 mg b.i.d.. - blood thinner to prevent stroke. Aflutter causes increased risk of stroke 3. Continue Olmesartan 40 mg daily. - blood pressure, kidney protection 4. Continue Amlodipine 10 mg qHS. - blood pressure 5. Stop the 325 mg aspirins and continue Aspirin 81 mg daily. - helps prevent stroke and heart attack. You can buy this over the counter 6. You will benefit from an Atrial Flutter Ablation procedure. We can't do this procedure for you at [facility]. You can follow up with Dr. Trejo at [facility], or seek second opinion with a Cardiac Insulation Board Coater Operator at [facility]. Follow up soon with cardiology - with [facility] / Dr. Quintana's office or with [facility] Dr. Cortez, depending where you want your ongoing cardiac care to be We discussed the risks and benefits of anticoagulation with Eliquis, including the risks of gastrointestinal bleeding - seek medical attention if you have black/tarry or bloody stool There is also a very small but real risk of intracranial hemorrhage - related to head trauma or bleeding-type stroke, that can be life threatening. Call 911 if you have altered mental status or symptoms of stroke (weakness or numbness of face/arm/leg, trouble speaking or understanding, trouble with walking/balance Cardiologists recommend blood thinner in your case because the risk of stroke is much higher than the risk of severe bleeding No not take NSAIDS (diclofenac pills, ibuprofen, naproxen or more than 81 mg of aspirin) while taking Eliquis because the bleeding risk is too high. Acetaminophen is safe, it is also ok to use topical diclofenac for pain (available over the counter) If you have excessive minor bleeding (like nosebleed or hemorrhoid bleeding) discuss with your cash applications analyst whether you can stop the baby aspirin Continue using your CPAP which can help prevent episodes of afib and aflutter It was a pleasure taking care of you in the hospital, Lauryn Chang MD Total Time Total Time Spent Total Time Spent (In Minutes): <30 Coding Level of Care Code 83745 IN/OBS DISCH 30 MIN/LESS Diagnoses Atrial flutter with rapid ventricular response I48.92 Primary hypertension I10 Hypertension type: primary hypertension Obstructive sleep apnea G47.33 Morbid obesity E66.01
== END 2024-11-22 11:51 | disposition home or self-care (01) | DRG 309 ==
LOC: 4W 06:03 → ED 06:03 → 4W 13:02